=== PATIENT | male | born 1945 | race Caucasian/White ===

== ENCOUNTER → 2020-05-20 | Outpatient (CLI) | payer MEDICARE ==
[2020-05-21 00:51] LABS: Calcium 9.3 mg/dL (8.7-10.3)
[2020-05-21 01:04] LABS: T4, Free (Free Thyroxine) 0.9 ng/dL (0.80-1.80)
== END | disposition home or self-care (01) ==
LOC: LABWHC1 09:55
PROVIDERS: ATTEND Psychiatry & Neurology Neurology
DX: M54.2 Cervicalgia (principal); R51 Headache; R25.1 Tremor, unspecified
CPT/HCPCS: 36415; 82310; 82390; 82607; 84439; 84443; 84630

== ENCOUNTER → 2020-05-23 | Outpatient (CLI) | payer MEDICARE ==
--- NOTE | 2020-05-23 15:54 | MR ---
EXAMINATION TYPE: MR brain wo/w con DATE OF EXAM: 05/23/2020 COMPARISON: None HISTORY: Tremor right hand TECHNIQUE: Multiplanar, multisequence images of the brain and brainstem is performed without and with IV contras t, utilizing 10 mL intravenous Gadavist . FINDINGS: Diffusion weighted images demonstrate no evidence of a recent infarct or other diffusion ab normality. There is no extra-axial fluid. Scattered hyperintensities on inversion recovery T2-weigh nettie sequences are present, approximately 3-5 lesions, largest in the right frontal lobe measures 8 mm . The ventricular system and cisternal spaces are normal in size and appearance. The brain volume is age appropriate, there is cortical atrophy. Midline structures demonstrate normal morphology. The craniocervical junction appears within normal limits. Post contrast images demonstrate no abnormal enhancement. The dural venous sinuses appear pa tent. The visualized sinuses are clear and the globes are intact. IMPRESSION: Nonspecific white matter demyelination may be related to chronic small vessel ischemia, h ypertension, migraine headaches, age related atrophy
== END | disposition home or self-care (01) ==
LOC: RADMRIMAIN 12:01
PROVIDERS: ATTEND Family Medicine
DX: G37.9 Demyelinating disease of central nervous system, unspecified (principal)
CPT/HCPCS: 70553; A9585

== ENCOUNTER 2020-11-30 11:30 | Inpatient (IN) | payer MEDICARE ==
[2020-11-30 12:55] LABS: Basophils # (A) 0.1 k/uL (0-0.2); Basophils % (A) 0 %; Eosinophils # (A) 0.2 k/uL (0-0.7); Eosinophils % (A) 1 %; HCT 48.2 % (39.0-53.0); HGB 16.7 gm/dL (13.0-17.5); Lymphocytes # (A) 1.3 k/uL (1.0-4.8); Lymphocytes % (A) 11 %; MCH 32.4 pg (25.0-35.0); MCHC 34.5 g/dL (31.0-37.0); MCV 93.9 fL (80.0-100.0); Mean Platelet Volume 8.1; Monocytes # (A) 0.7 k/uL (0-1.0); Monocytes % (A) 6 %; Neutrophils # (A) 9.6 k/uL (1.3-7.7); Neutrophils % (A) 81 %; Platelet Count 145 k/uL (150-450); RBC 5.14 m/uL (4.30-5.90); RDW 12.5 % (11.5-15.5); WBC 11.8 k/uL (3.8-10.6)
[2020-11-30 13:05] LABS: ALT 30 U/L (4-49); AST 31 U/L (17-59); African American GFR (CKD) >90 (>60 ml/min/1.73 sqM); Albumin 3.6 g/dL (3.5-5.0); Alkaline Phosphatase 62 U/L (38-126); Anion Gap 9 mmol/L; Blood Urea Nitrogen 23 mg/dL (9-20); Calcium 8.8 mg/dL (8.4-10.2); Carbon Dioxide 24 mmol/L (22-30); Chloride 103 mmol/L (98-107); Glucose 101 mg/dL (74-99); Lipase 95 U/L (23-300); Non-African American GFR(CKD) 84 (>60 ml/min/1.73 sqM); Potassium 3.8 mmol/L (3.5-5.1); Sodium 136 mmol/L (137-145); Total Bilirubin 1.5 mg/dL (0.2-1.3); Total Protein 6.6 g/dL (6.3-8.2)
[2020-11-30 13:19] LABS: Partial Thromboplastin Time 23.7 sec (22.0-30.0); Prothrombin Time 10.4 sec (9.0-12.0)
[2020-11-30 13:40] LABS: Appearance,Urine Clear (Clear); Bilirubin,Urine 1+ (Negative); Blood,Urine Negative (Negative); Color,Urine Yellow; Glucose,Urine (UA) Negative (Negative); Hyaline Casts,Urine 7 /lpf (0-2); Ketones,Urine 2+ (Negative); Leukocyte Esterase,Urine Negative (Negative); Mucus,Urine Moderate /hpf; Nitrite,Urine Negative (Negative); PH, Urine 5.5 (5.0-8.0); Protein,Urine 1+ (Negative); RBC,Urine 1 /hpf (0-5); Specific Gravity,Urine 1.038 (1.001-1.035); Squamous Epithelial Cell,Urine 1 /hpf (0-4); WBC,Urine 2 /hpf (0-5)
--- NOTE | 2020-11-30 13:48 | CT ---
EXAMINATION TYPE: CT abdomen pelvis w con DATE OF EXAM: 11/30/2020 COMPARISON: NONE HISTORY: 75-year-old male abdominal and LLQ pain TECHNIQUE: Contiguous axial scanning of the abdomen and pelvis following administration of 100 ml Iso brigido 300 IV contrast. Delayed images through the kidneys and coronal/sagittal reconstructions perform ed. CT DLP: 1830.9 mGycm Automated exposure control for dose reduction was used. FINDINGS: Heart normal size without pericardial effusion. Three-vessel coronary artery calcifications are prese nt. Some strandy areas of atelectasis in the lower lungs. No pleural effusion. Tiny hiatal hernia. Liver mildly enlarged at 18.8 cm. There is a tiny 7 mm hypodensity within segment IVb of the left tim er lobe too small for accurate CT characterization, likely tiny cysts. No biliary ductal dilatation. Portal venous system is patent. Nonvisualization of the gallbladder. Adrenal glands, kidneys, spleen, and pancreas appear within normal limits. No mesenteric or retroperitoneal lymphadenopathy. Normal appendix. Descending and sigmoid colonic diverticulosis. There is moderate inflammation noted within the left lower quadrant and upper pelvis. The greatest degree of inflammation is near the leve l of the mid sigmoid colon. There is a 2.8 cm fluid locule containing some air on the anterior margin of the mid sigmoid colon abutting an inflamed and thickened loop of small bowel. The bladder wall is also thickened with perivesicular fat stranding. No free air. Prostate gland measures 4.7 cm wide. Scattered pelvic phleboliths. No abnormal fluid collection other waterman seen in the pelvis and no pelvic lymphadenopathy. Bones: Mild degenerative change of the hips. Facet arthropathy mid to lower lumbar spine. DISH within the lower thoracic spine. IMPRESSION: 1. MODERATE INFLAMMATION IN THE LEFT LOWER QUADRANT AND UPPER PELVIS. THIS MAY RELATE TO ACUTE MID SI GMOID DIVERTICULITIS. A 2.8 CM FLUID LOCULE CONTAINING SOME AIR, POSSIBLE SMALL CONTAINED LEAK, IS LO CATED ALONG THE ANTERIOR MARGIN OF THE MID SIGMOID COLON AND ABUTS AN INFLAMED AND THICKENED LOOP OF SMALL BOWEL. MODERATE TO SEVERE REGIONAL ENTERITIS IS THE ALTERNATIVE CONSIDERATION. FOLLOW-UP CT REC OMMENDED IF THE PATIENT DOES NOT RESPOND TO CONSERVATIVE MANAGEMENT. 2. WALL THICKENING AND SURROUNDING FAT STRANDING OF THE BLADDER DOME, LIKELY REACTIVE INFLAMMATION. C ORRELATE TO EXCLUDE CYSTITIS.
[2020-11-30] MEDS ORDERED: cefTRIAXone IN SWFI 1,000 MG/10 ML SYRINGE IVP STA (14:11)
[2020-11-30] MEDS ORDERED: metroNIDAZOLE-NS PMX 500 MG in SALINE 1 100ML.BAG IVPB STA (14:11)
--- NOTE | 2020-11-30 14:26 | ED ---
General Adult HPI - General Chief complaint: Abdominal Pain Stated complaint: abd pain Time Seen by Provider: 11/30/20 12:05 Source: patient Mode of arrival: ambulatory Limitations: no limitations - History of Present Illness Initial comments: Patient is a 75-year-old previously healthy male who presents emergency room with reported abdominal pain. Patient reports that he began having diffuse abdominal pain on with some diarrhea. Pain then began to localize down to the left lower quadrant. No history of similar in the past. Does report to a fever at home. Denies taking any medications for fever or symptom control. He denies melenic stools or hematochezia. No changes in his urination to include dysuria, hematuria or diplopia voiding. No back or flank pain. Patient did follow up in Dr. Case office. Dr. Hutton was concerned for diverticulitis and therefore sent the patient to the ER for CT. Overlying the left lower quadrant the patient does have an area of abrasion. Patient is unsure how he obtained this. Eyes any drainage from the site. No surrounding cellulitis. No other alleviating, Perceptin or modifying factors - Related Data Home Medications Medication Instructions Recorded Confirmed 5-Hydroxytryptophan (5-Htp) [5-Htp 100 mg PO HS 11/30/20 11/30/20 Cr] Aspirin 162 mg PO DAILY 11/30/20 11/30/20 Atorvastatin Calcium [Lipitor] 80 mg PO HS 11/30/20 11/30/20 Cholecalciferol (Vitamin D3) 125 mcg PO DAILY 11/30/20 11/30/20 [Vitamin D3 (5000 Iu)] Cinnamon Bark [Cinnamon] 500 mg PO W/LUNCH 11/30/20 11/30/20 Clotrimazole Cream [Lotrimin Cream] 1 applic TOPICAL BID 11/30/20 11/30/20 Donepezil [Aricept] 10 mg PO DAILY 11/30/20 11/30/20 Finasteride [Proscar] 5 mg PO HS 11/30/20 11/30/20 L.acidoph,Paracasei, B.lactis 1 cap PO W/LUNCH 11/30/20 11/30/20 [Probiotic] Montelukast [Singulair] 10 mg PO DAILY 11/30/20 11/30/20 Multivitamins, Thera [Multivitamin 1 tab PO AC-SUPPER 11/30/20 11/30/20 (formulary)] Propranolol [Inderal] 40 mg PO AC-BID 11/30/20 11/30/20 Super B-Complex 1 tab PO DAILY 11/30/20 11/30/20 Terazosin [Hytrin] 5 mg PO BID 11/30/20 11/30/20 Zinc Gluconate [Zinc] 50 mg PO DAILY 11/30/20 11/30/20 Previous Rx's Medication Instructions Recorded Acetaminophen Tab [Tylenol] 650 mg PO Q6HR PRN tab 12/08/20 Piperacillin-Tazobactam [Zosyn] 4.5 gm IVPB Q8HR #42 bag 12/08/20 Allergies Allergy/AdvReac Type Severity Reaction Status Date / Time No Known Allergies Allergy Verified 11/30/20 13:06 Review of Systems ROS Statement: Those systems with pertinent positive or pertinent negative responses have been documented in the HPI. ROS Other: All systems not noted in ROS Statement are negative. Past Medical History Past Medical History: No Reported History History of Any Multi-Drug Resistant Organisms: None Reported Past Surgical History: Hernia Repair Past Psychological History: No Psychological Hx Reported Smoking Status: Former smoker Past Alcohol Use History: Rare Past Drug Use History: None Reported - Past Family History Father Family Medical History: Unable to Obtain Mother Family Medical History: Cancer Additional Family Medical History / Comment(s): Emphysema General Exam Limitations: no limitations General appearance: alert, in no apparent distress Head exam: Present: atraumatic, normocephalic, normal inspection Eye exam: Present: normal appearance, PERRL, EOMI. Absent: scleral icterus, conjunctival injection, periorbital swelling ENT exam: Present: normal exam, mucous membranes moist Neck exam: Present: normal inspection. Absent: tenderness, meningismus, lymphadenopathy Respiratory exam: Present: normal lung sounds bilaterally. Absent: respiratory distress, wheezes, rales, rhonchi, stridor Cardiovascular Exam: Present: regular rate, normal rhythm, normal heart sounds. Absent: systolic murmur, diastolic murmur, rubs, gallop, clicks GI/Abdominal exam: Present: soft, tenderness (llq. overlying 3 x2 cm partially healed abrasion), normal bowel sounds. Absent: distended, guarding, rebound, rigid Extremities exam: Present: normal inspection, full ROM, normal capillary refill. Absent: tenderness, pedal edema, joint swelling, calf tenderness Back exam: Present: normal inspection Neurological exam: Present: alert, oriented X3, CN II-XII intact Psychiatric exam: Present: normal affect, normal mood Skin exam: Present: warm, dry, intact, normal color. Absent: rash Course Vital Signs 11/30/20 11/30/20 11/30/20 12:02 12:37 15:06 Temperature 98.5 F Pulse Rate 87 83 72 Respiratory 18 18 16 Rate Blood Pressure 133/80 161/100 159/87 O2 Sat by Pulse 96 95 98 Oximetry 11/30/20 17:13 Temperature 98.6 F Pulse Rate 77 Respiratory 16 Rate Blood Pressure 159/76 O2 Sat by Pulse 98 Oximetry Medical Decision Making - Medical Decision Making The patient is placed into room 23. There are history and physical exam was performed. IV is established. Did offer pain medication with the patient refused. Tracings were conducted and the patient went for CT of his abdomen and pelvis. Urinalysis demonstrates 2+ ketones. CT does demonstrate acute diverticulitis of the mid sigmoid colon with 2.8 fluid locule containing some air, possible small contained leak. These results are discussed with the patient. He is covered with Zosyn after blood cultures are performed. I did speak with Dr. shaw who agree to admit the patient. I will place GI and surgery on consult. Patient agreed to this plan and was awaiting a bed on the floor - Lab Data Result diagrams: 12/07/20 06:11 12/01/20 06:11 Lab Results 11/30/20 11/30/20 11/30/20 Range/Units 12:37 12:37 12:37 WBC 11.8 H (3.8-10.6) k/uL RBC 5.14 (4.30-5.90) m/uL Hgb 16.7 (13.0-17.5) gm/dL Hct 48.2 (39.0-53.0) % MCV 93.9 (80.0-100.0) fL MCH 32.4 (25.0-35.0) pg MCHC 34.5 (31.0-37.0) g/dL RDW 12.5 (11.5-15.5) % Plt Count 145 L (150-450) k/uL MPV 8.1 Neutrophils % 81 % Lymphocytes % 11 % Monocytes % 6 % Eosinophils % 1 % Basophils % 0 % Neutrophils # 9.6 H (1.3-7.7) k/uL Lymphocytes # 1.3 (1.0-4.8) k/uL Monocytes # 0.7 (0-1.0) k/uL Eosinophils # 0.2 (0-0.7) k/uL Basophils # 0.1 (0-0.2) k/uL PT 10.4 (9.0-12.0) sec INR 1.0 (<1.2) APTT 23.7 (22.0-30.0) sec Sodium 136 L (137-145) mmol/L Potassium 3.8 (3.5-5.1) mmol/L Chloride 103 (98-107) mmol/L Carbon Dioxide 24 (22-30) mmol/L Anion Gap 9 mmol/L BUN 23 H (9-20) mg/dL Creatinine 0.89 (0.66-1.25) mg/dL Est GFR (CKD-EPI)AfAm >90 (>60 ml/min/1.73 sqM) Est GFR (CKD-EPI)NonAf 84 (>60 ml/min/1.73 sqM) Glucose 101 H (74-99) mg/dL Plasma Lactic Acid Teddy (0.7-2.0) mmol/L Calcium 8.8 (8.4-10.2) mg/dL Total Bilirubin 1.5 H (0.2-1.3) mg/dL AST 31 (17-59) U/L ALT 30 (4-49) U/L Alkaline Phosphatase 62 (38-126) U/L Total Protein 6.6 (6.3-8.2) g/dL Albumin 3.6 (3.5-5.0) g/dL Lipase 95 (23-300) U/L Urine Color Urine Appearance (Clear) Urine pH (5.0-8.0) Ur Specific [place] (1.001-1.035) Urine Protein (Negative) Urine Glucose (UA) (Negative) Urine Ketones (Negative) Urine Blood (Negative) Urine Nitrite (Negative) Urine Bilirubin (Negative) Urine Urobilinogen (<2.0) mg/dL Ur Leukocyte Esterase (Negative) Urine RBC (0-5) /hpf Urine WBC (0-5) /hpf Ur Squamous Epith Cells (0-4) /hpf Hyaline Casts (0-2) /lpf Urine Mucus (None) /hpf 11/30/20 11/30/20 Range/Units 12:37 12:44 WBC (3.8-10.6) k/uL RBC (4.30-5.90) m/uL Hgb (13.0-17.5) gm/dL Hct (39.0-53.0) % MCV (80.0-100.0) fL MCH (25.0-35.0) pg MCHC (31.0-37.0) g/dL RDW (11.5-15.5) % Plt Count (150-450) k/uL MPV Neutrophils % % Lymphocytes % % Monocytes % % Eosinophils % % Basophils % % Neutrophils # (1.3-7.7) k/uL Lymphocytes # (1.0-4.8) k/uL Monocytes # (0-1.0) k/uL Eosinophils # (0-0.7) k/uL Basophils # (0-0.2) k/uL PT (9.0-12.0) sec INR (<1.2) APTT (22.0-30.0) sec Sodium (137-145) mmol/L Potassium (3.5-5.1) mmol/L Chloride (98-107) mmol/L Carbon Dioxide (22-30) mmol/L Anion Gap mmol/L BUN (9-20) mg/dL Creatinine (0.66-1.25) mg/dL Est GFR (CKD-EPI)AfAm (>60 ml/min/1.73 sqM) Est GFR (CKD-EPI)NonAf (>60 ml/min/1.73 sqM) Glucose (74-99) mg/dL Plasma Lactic Acid Teddy 0.9 (0.7-2.0) mmol/L Calcium (8.4-10.2) mg/dL Total Bilirubin (0.2-1.3) mg/dL AST (17-59) U/L ALT (4-49) U/L Alkaline Phosphatase (38-126) U/L Total Protein (6.3-8.2) g/dL Albumin (3.5-5.0) g/dL Lipase (23-300) U/L Urine Color Yellow Urine Appearance Clear (Clear) Urine pH 5.5 (5.0-8.0) Ur Specific Esmond 1.038 H (1.001-1.035) Urine Protein 1+ H (Negative) Urine Glucose (UA) Negative (Negative) Urine Ketones 2+ H (Negative) Urine Blood Negative (Negative) Urine Nitrite Negative (Negative) Urine Bilirubin 1+ H (Negative) Urine Urobilinogen 3.0 (<2.0) mg/dL Ur Leukocyte Esterase Negative (Negative) Urine RBC 1 (0-5) /hpf Urine WBC 2 (0-5) /hpf Ur Squamous Epith Cells 1 (0-4) /hpf Hyaline Casts 7 H (0-2) /lpf Urine Mucus Moderate H (None) /hpf Disposition Clinical Impression: Abdominal pain, Diverticulitis of colon with perforation Disposition: ADMITTED IP TO THIS [facility] Condition: Stable Is patient prescribed a controlled substance at d/c from ED?: No Decision to Admit Reason: Admit from EC Decision Date: 11/30/20 Decision Time: 14:25
[2020-11-30] MEDS ORDERED: NALOXONE 0.4 MG/ML 1 ML VIAL IV PRN (14:27)
[2020-11-30] MEDS ORDERED: SODIUM CHLORIDE 0.9% 1,000 ML IV SCH (14:30)
[2020-11-30] MEDS ORDERED: PIPERACILLIN-TAZOBACTAM 3.375 GM in SODIUM CHLORIDE 0.9% 100 ML IVPB STA (14:33)
--- NOTE | 2020-11-30 16:17 | P.GSCN ---
History of Present Illness Consult date: 11/30/20 History of present illness: CHIEF COMPLAINT: Abdominal pain HISTORY OF PRESENT ILLNESS: This is a 75-year-old male with a known past medical history hyperlipidemia, hypertension, dementia and BPH. He's had prior surgical history of a hernia repair. Patient came into the emergency room with complaints of left lower quadrant abdominal pain 4 days. Patient had been having nausea and fevers at home. On pain did continue to worsen in the left lower quadrant. He did have some diarrhea. He came into the ER for further evaluation. He had a computed tomography scan of the abdomen and pelvis that showed moderate inflammation in the left lower quadrant and upper pelvis. This may relate to acute mid sigmoid diverticulitis. A 2.8 cm fluid locule containing some air, possible small contained leak. It is located along the anterior margin of the mid sigmoid col on and abuts and inflamed and thickened loop of small bowel. Patient admitted to the hospital for an acute diverticulitis with perforation. Surgical service was placed on consult. Patient does report that his pain is tolerable at this time. He's been started on IV antibiotics. His white count was elevated on admission. Patient seen and examined with Dr. Guardado PAST MEDICAL HISTORY: See list. PAST SURGICAL HISTORY: See list. MEDICATIONS: See list. ALLERGIES: See list. SOCIAL HISTORY: No illicit drug use. REVIEW OF SYSTEMS: CONSTITUTIONAL: Denies fever or chills. HEENT: Denies blurred vision, vision changes, or eye pain. Denies hemoptysis CARDIOVASCULAR: Denies chest pain or pressure. RESPIRATORY: No shortness of breath. GASTROINTESTINAL: See HPI for pertinent findings HEMATOLOGIC: Denies bleeding disorders. GENITOURINARY: Denies any blood in urine or increased urinary frequency. SKIN: Denies pruitis. Denies rash. PHYSICAL EXAM: VITAL SIGNS: Reviewed GENERAL: Well-developed in no acute distress. HEENT: No sclera icterus. Extraocular movements grossly intact. Moist buccal mucosa. Head is atraumatic, normocephalic. No nasal drainage. ABDOMEN: Soft. Nondistended. Left lower quadrant tenderness NEUROLOGIC: Alert and oriented. Cranial nerves II through XII grossly intact. LABORATORY DATA: WBC 11.8 Hgb 16.7 platelets 145 INR 1.0 sodium 136 BUN 23 creatinine 0.89 lactic 0.9 total bili 1.5 LFTs normal Lipase normal IMAGING: computed tomography scan of the abdomen and pelvis that showed moderate inflammation in the left lower quadrant and upper pelvis. This may relate to acute mid sigmoid diverticulitis. A 2.8 cm fluid locule containing some air, possible small contained leak. It is located along the anterior margin of the mid sigmoid colon and abuts and inflamed and thickened loop of small bowel. ASSESSMENT: 1. Acute mid sigmoid diverticulitis with perforation and contained leak measuring 2.8 cm 2. Abdominal pain PLAN: -Continue antibiotics -Keep patient nothing by mouth -Continue IV fluids -Continue to monitor patient closely -If patient's symptoms worsen will repeat computed tomography scan of the abdomen and pelvis -Follow up with labs in a.m. Thank you for this consultation Physician [employer]ar[employer] Supervisor [employer] note has been reviewed by physician. Signing provider agrees with the documented findings, assessment, and plan of care. Past Medical History Past Medical History: No Reported History History of Any Multi-Drug Resistant Organisms: None Reported Past Surgical History: Hernia Repair Past Psychological History: No Psychological Hx Reported Smoking Status: Former smoker Past Alcohol Use History: Rare Past Drug Use History: None Reported Medications and Allergies Home Medications Medication Instructions Recorded Confirmed Type 5-Hydroxytryptophan (5-Htp) [5-Htp 100 mg PO HS 11/30/20 11/30/20 History Cr] Aspirin 162 mg PO DAILY 11/30/20 11/30/20 History Atorvastatin Calcium [Lipitor] 80 mg PO HS 11/30/20 11/30/20 History Cholecalciferol (Vitamin D3) 125 mcg PO DAILY 11/30/20 11/30/20 History [Vitamin D3 (5000 Iu)] Cinnamon Bark [Cinnamon] 500 mg PO W/LUNCH 11/30/20 11/30/20 History Clotrimazole Cream [Lotrimin Cream] 1 applic TOPICAL BID 11/30/20 11/30/20 History Donepezil [Aricept] 10 mg PO DAILY 11/30/20 11/30/20 History Finasteride [Proscar] 5 mg PO HS 11/30/20 11/30/20 History L.acidoph,Paracasei, B.lactis 1 cap PO W/LUNCH 11/30/20 11/30/20 History [Probiotic] Montelukast [Singulair] 10 mg PO DAILY 11/30/20 11/30/20 History Multivitamins, Thera [Multivitamin 1 tab PO AC-SUPPER 11/30/20 11/30/20 History (formulary)] Propranolol [Inderal] 40 mg PO AC-BID 11/30/20 11/30/20 History Super B-Complex 1 tab PO DAILY 11/30/20 11/30/20 History Terazosin [Hytrin] 5 mg PO BID 11/30/20 11/30/20 History Zinc Gluconate [Zinc] 50 mg PO DAILY 11/30/20 11/30/20 History Allergies Allergy/AdvReac Type Severity Reaction Status Date / Time No Known Allergies Allergy Verified 11/30/20 13:06 Surgical - Exam Vital Signs Temp Pulse Resp BP Pulse Ox 98.5 F 87 18 133/80 96 11/30/20 12:02 11/30/20 12:02 11/30/20 12:02 11/30/20 12:02 11/30/20 12:02 Results - Labs 11/30/20 12:37 11/30/20 12:37 Abnormal Lab Results - Last 24 Hours (Table) 11/30/20 11/30/20 11/30/20 Range/Units 12:37 12:37 12:44 WBC 11.8 H (3.8-10.6) k/uL Plt Count 145 L (150-450) k/uL Neutrophils # 9.6 H (1.3-7.7) k/uL Sodium 136 L (137-145) mmol/L BUN 23 H (9-20) mg/dL Glucose 101 H (74-99) mg/dL Total Bilirubin 1.5 H (0.2-1.3) mg/dL Ur Specific [place] 1.038 H (1.001-1.035) Urine Protein 1+ H (Negative) Urine Ketones 2+ H (Negative) Urine Bilirubin 1+ H (Negative) Hyaline Casts 7 H (0-2) /lpf Urine Mucus Moderate H (None) /hpf Diabetes panel 11/30/20 Range/Units 12:37 Sodium 136 L (137-145) mmol/L Potassium 3.8 (3.5-5.1) mmol/L Chloride 103 (98-107) mmol/L Carbon Dioxide 24 (22-30) mmol/L BUN 23 H (9-20) mg/dL Creatinine 0.89 (0.66-1.25) mg/dL Glucose 101 H (74-99) mg/dL Calcium 8.8 (8.4-10.2) mg/dL AST 31 (17-59) U/L ALT 30 (4-49) U/L Alkaline Phosphatase 62 (38-126) U/L Total Protein 6.6 (6.3-8.2) g/dL Albumin 3.6 (3.5-5.0) g/dL Calcium panel 11/30/20 Range/Units 12:37 Calcium 8.8 (8.4-10.2) mg/dL Albumin 3.6 (3.5-5.0) g/dL Pituitary panel 11/30/20 Range/Units 12:37 Sodium 136 L (137-145) mmol/L Potassium 3.8 (3.5-5.1) mmol/L Chloride 103 (98-107) mmol/L Carbon Dioxide 24 (22-30) mmol/L BUN 23 H (9-20) mg/dL Creatinine 0.89 (0.66-1.25) mg/dL Glucose 101 H (74-99) mg/dL Calcium 8.8 (8.4-10.2) mg/dL Adrenal panel 11/30/20 Range/Units 12:37 Sodium 136 L (137-145) mmol/L Potassium 3.8 (3.5-5.1) mmol/L Chloride 103 (98-107) mmol/L Carbon Dioxide 24 (22-30) mmol/L BUN 23 H (9-20) mg/dL Creatinine 0.89 (0.66-1.25) mg/dL Glucose 101 H (74-99) mg/dL Calcium 8.8 (8.4-10.2) mg/dL Total Bilirubin 1.5 H (0.2-1.3) mg/dL AST 31 (17-59) U/L ALT 30 (4-49) U/L Alkaline Phosphatase 62 (38-126) U/L Total Protein 6.6 (6.3-8.2) g/dL Albumin 3.6 (3.5-5.0) g/dL
[2020-11-30] MEDS: ENOXAPARIN 40 MG/0.4 ML SYRINGE SQ SCH (18:02)
[2020-11-30] MEDS: MULTIVITAMINS, THERA 1 EACH TAB PO SCH (18:02)
[2020-11-30] MEDS: PROPRANOLOL 40 MG TAB PO SCH (18:18)
--- NOTE | 2020-11-30 20:08 | P.HPIM ---
History of Present Illness H&P Date: 11/30/20 Chief Complaint: Abdominal pain History of presenting complaint: This is a very pleasant 75-year-old patient Dr. Hutton. Chronic stable medical conditions include BPH, hyperlipidemia, benign forgetfulness of them daily. Patient rather active. 4 days ago he finished the morning meeting is started noticing some abdominal discomfort. By late in the day he was not feeling well. Had a fever up to 103. Chills. Not feeling well. Fever broke the following day. He did decrease appetite. Abdominal symptoms progress. Continue to feel worse. Patient had no urinary symptoms. He did follow with Dr. Hutton's office will send him down for a computed tomography scan. Patient also had some loose stools. 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 Ex-smoker. Alcohol rarely. Family history: Reviewed, noncontributory to presentation Physical examination: VITAL SIGNS: 98.5, 87, 18, 133 per 80, 96% room air GENERAL: BMI 30.3, sitting on bed, a bit uncomfortable. EYES: Pupils equal. Conjunctiva normal. HEENT: External appearance of nose and ears normal, oral cavity grossly normal. NECK: JVD not raised; masses not palpable. HEART: First and second heart sounds are normal; no edema. LUNGS: Respiratory rate normal; clear to auscultation. ABDOMEN: Soft, tenderness, no guarding rigidity, liver spleen not palpable, no masses palpable. PSYCH: Alert and oriented x3; mood and affect normal. NEUROLOGICAL: Cranial nerves grossly intact; no facial asymmetry, power and sensation grossly intact. LYMPHATICS: No lymph nodes palpable in the axilla and neck INVESTIGATIONS, reviewed in the clinical context: WBC 11.8 hemoglobin 16.7 platelets 145 neutrophils 9.6 potassium 3.8 creatinine 0.89 Coronavirus [PCR]-not detected Computed tomography scan abdomen and pelvis with contrast: Descending and sigmoid colonic diverticulosis. Moderate inflammation noted within the left lower quadrant and upper pelvis. Crit is decreased inflammation noted on the mid sigmoid colon. 2.8 cm fluid no acute contains some air on that date her margin of the mid sigmoid colon sitting or inflamed and thickened loop of small bowel. Prostate again enlarged. Assessment and plan: -Acute sigmoid diverticulitis with localized perforation 2.8 cm. Patient is being made nothing by mouth. General surgery was consulted. Started IV Zosyn and IV fluids. 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 Questions answered. General surgery was consulted. Nothing by mouth Given the complexity and severity of patient's condition expect the patient to be in the hospital at least for 2 overnights Past Medical History Past Medical History: No Reported History History of Any Multi-Drug Resistant Organisms: None Reported Past Surgical History: Hernia Repair Past Anesthesia/Blood Transfusion Reactions: No Reported Reaction Past Psychological History: No Psychological Hx Reported Smoking Status: Former smoker Past Alcohol Use History: Rare Past Drug Use History: None Reported - Past Family History Father Family Medical History: Unable to Obtain Mother Family Medical History: Cancer Additional Family Medical History / Comment(s): Emphysema Medications and Allergies Home Medications Medication Instructions Recorded Confirmed Type 5-Hydroxytryptophan (5-Htp) [5-Htp 100 mg PO HS 11/30/20 11/30/20 History Cr] Aspirin 162 mg PO DAILY 11/30/20 11/30/20 History Atorvastatin Calcium [Lipitor] 80 mg PO HS 11/30/20 11/30/20 History Cholecalciferol (Vitamin D3) 125 mcg PO DAILY 11/30/20 11/30/20 History [Vitamin D3 (5000 Iu)] Cinnamon Bark [Cinnamon] 500 mg PO W/LUNCH 11/30/20 11/30/20 History Clotrimazole Cream [Lotrimin Cream] 1 applic TOPICAL BID 11/30/20 11/30/20 History Donepezil [Aricept] 10 mg PO DAILY 11/30/20 11/30/20 History Finasteride [Proscar] 5 mg PO HS 11/30/20 11/30/20 History L.acidoph,Paracasei, B.lactis 1 cap PO W/LUNCH 11/30/20 11/30/20 History [Probiotic] Montelukast [Singulair] 10 mg PO DAILY 11/30/20 11/30/20 History Multivitamins, Thera [Multivitamin 1 tab PO AC-SUPPER 11/30/20 11/30/20 History (formulary)] Propranolol [Inderal] 40 mg PO AC-BID 11/30/20 11/30/20 History Super B-Complex 1 tab PO DAILY 11/30/20 11/30/20 History Terazosin [Hytrin] 5 mg PO BID 11/30/20 11/30/20 History Zinc Gluconate [Zinc] 50 mg PO DAILY 11/30/20 11/30/20 History Allergies Allergy/AdvReac Type Severity Reaction Status Date / Time No Known Allergies Allergy Verified 11/30/20 13:06 Physical Exam Vitals: Vital Signs Temp Pulse Resp BP Pulse Ox 11/30/20 17:13 98.6 F 77 16 159/76 98 11/30/20 15:06 72 16 159/87 98 11/30/20 12:37 83 18 161/100 95 11/30/20 12:02 98.5 F 87 18 133/80 96 Intake and Output 11/30/20 11/30/20 11/30/20 06:59 14:59 22:59 Other: Weight 107.048 kg 107.048 kg Results CBC & Chem 7: 11/30/20 12:37 11/30/20 12:37 Labs: Abnormal Lab Results - Last 24 Hours (Table) 11/30/20 11/30/20 11/30/20 Range/Units 12:37 12:37 12:44 WBC 11.8 H (3.8-10.6) k/uL Plt Count 145 L (150-450) k/uL Neutrophils # 9.6 H (1.3-7.7) k/uL Sodium 136 L (137-145) mmol/L BUN 23 H (9-20) mg/dL Glucose 101 H (74-99) mg/dL Total Bilirubin 1.5 H (0.2-1.3) mg/dL Ur Specific [place] 1.038 H (1.001-1.035) Urine Protein 1+ H (Negative) Urine Ketones 2+ H (Negative) Urine Bilirubin 1+ H (Negative) Hyaline Casts 7 H (0-2) /lpf Urine Mucus Moderate H (None) /hpf Thrombosis Risk Factor Assmnt - Choose All That Apply Each Factor Represents 1 point: Minor surgery planned Each Risk Factor Represents 3 Points: Age 75 years or older Thrombosis Risk Factor Assessment Total Risk Factor Score: 4 Thrombosis Risk Factor Assessment Level: Moderate Risk
[2020-11-30] MEDS ORDERED: HYDROXYTRYPTOPHAN 100 MG PO SCH (21:00)
[2020-11-30] MEDS: ATORVASTATIN 80 MG TAB PO SCH (21:03)
[2020-11-30] MEDS: DOXAZOSIN 4 MG TAB PO SCH (21:04)
[2020-11-30] MEDS: CLOTRIMAZOLE 1% CREAM 30 GM TUBE TOPICAL SCH (21:04)
[2020-11-30] MEDS: FINASTERIDE 5 MG TAB PO SCH (21:04)
[2020-11-30] MEDS: LACTATED RINGERS 1,000 ML IV SCH (21:05)
[2020-12-01] MEDS: LACTATED RINGERS 1,000 ML IV SCH ×2 (04:41→12:26)
[2020-12-01 06:54] LABS: Basophils % (A) 0 %; Eosinophils # (A) 0.1 k/uL (0-0.7); Eosinophils % (A) 1 %; Lymphocytes # (A) 1.3 k/uL (1.0-4.8); Lymphocytes % (A) 11 %; MCH 32.8 pg (25.0-35.0); MCHC 34.7 g/dL (31.0-37.0); MCV 94.5 fL (80.0-100.0); Mean Platelet Volume 7.6; Monocytes # (A) 0.7 k/uL (0-1.0); Monocytes % (A) 6 %; Neutrophils # (A) 9.8 k/uL (1.3-7.7); Neutrophils % (A) 81 %; Platelet Count 155 k/uL (150-450); RBC 4.87 m/uL (4.30-5.90); RDW 12.5 % (11.5-15.5)
[2020-12-01] MEDS: CHOLECALCIFEROL 25 MCG (1000 IU) TABLET PO SCH ×2 (09:22→09:32)
[2020-12-01] MEDS: CLOTRIMAZOLE 1% CREAM 30 GM TUBE TOPICAL SCH ×2 (09:22→21:29)
[2020-12-01] MEDS: ENOXAPARIN 40 MG/0.4 ML SYRINGE SQ SCH (09:22)
[2020-12-01] MEDS: MONTELUKAST 10 MG TAB PO SCH ×2 (09:22→09:32)
[2020-12-01] MEDS: DONEPEZIL 10 MG TAB PO SCH ×2 (09:22→09:32)
[2020-12-01] MEDS: PROPRANOLOL 40 MG TAB PO SCH ×2 (09:22→18:18)
[2020-12-01] MEDS: ASPIRIN 81 MG PO SCH ×2 (09:22→09:32)
[2020-12-01] MEDS: ZINC SULFATE 220 MG CAP PO SCH ×2 (09:22→09:32)
[2020-12-01] MEDS: PIPERACILLIN-TAZOBACTAM 3.375 GM in SODIUM CHLORIDE 0.9% 100 ML IVPB SCH ×2 (10:44→18:20)
[2020-12-01] MEDS: LACTOBACILLUS ACIDOPH & BULGAR 1 EACH PACKET PO SCH (11:28)
[2020-12-01] MEDS ORDERED: NON FORMULARY DRUG (Cinnamon Bark [Cinnamon] 500 MG Capsule) PO SCH (12:30)
[2020-12-01 13:15] LABS: African American GFR (CKD) 101.3 (60.0-200.0); Anion Gap 7.8 mmol/L (4.00-12.00); BUN/Creat Ratio 22.5 Ratio (12.00-20.00); Calcium 9.1 mg/dL (8.7-10.3); Carbon Dioxide 26.2 mmol/L (21.6-31.8); Non-African American GFR(CKD) 87.4 (60.0-200.0); Potassium 4.4 mmol/L (3.5-5.5)
--- NOTE | 2020-12-01 14:10 | P.PN ---
Subjective Progress Note Date: 12/01/20 CHIEF COMPLAINT: Abdominal pain HISTORY OF PRESENT ILLNESS: Surgical service is following in regards to acute diverticulitis with perforation and contained leak. Patient reports that his abdominal pain is better than yesterday. But is still present. He denies any nausea or vomiting. He is having bowel movements. No blood in the stools. White count is up at 12. He is currently nothing by mouth except for ice chips. PHYSICAL EXAM: VITAL SIGNS: Reviewed. GENERAL: Well-developed in no acute distress. HEENT: No sclera icterus. Extraocular movements grossly intact. Moist buccal mucosa. Head is atraumatic, normocephalic. ABDOMEN: Soft. Nondistended. Left lower quadrant tenderness NEUROLOGIC: Alert and oriented. Cranial nerves II through XII grossly intact. ASSESSMENT: 1. Acute mid sigmoid diverticulitis with perforation and contained leak measuring 2.8 cm 2. Abdominal pain PLAN: -Continue antibiotics -Keep patient nothing by mouth except for ice chips -Continue IV fluids -Continue to monitor patient closely -Lovenox for DVT prophylaxis Physician Order Runner note has been reviewed by physician. Signing provider agrees with the documented findings, assessment, and plan of care. Objective - Vital Signs Vital signs: Vital Signs Temp 97.9 F 12/01/20 11:40 Pulse 73 12/01/20 11:40 Resp 17 12/01/20 11:40 BP 123/76 12/01/20 11:40 Pulse Ox 96 12/01/20 11:40 Intake & Output 11/30/20 12/01/20 12/01/20 18:59 06:59 18:59 Intake Total 1000 Balance 1000 Weight 107.048 kg Intake: Intake, IV Titration 1000 Amount Lactated Ringers 1,000 ml 1000 @ 125 mls/hr IV .Q8H [facility] Rx#:[id number] Other: Voiding Method Toilet - Labs CBC & Chem 7: 12/01/20 06:11 12/01/20 06:11 Labs: Abnormal Lab Results - Last 24 Hours (Table) 12/01/20 12/01/20 Range/Units 06:11 06:11 WBC 12.0 H (3.8-10.6) k/uL Neutrophils # 9.8 H (1.3-7.7) k/uL BUN/Creatinine Ratio 22.50 H (12.00-20.00) Ratio
[2020-12-01] MEDS: PANTOPRAZOLE 40 MG/10 ML VIAL IVP SCH (14:57)
--- NOTE | 2020-12-01 16:27 | P.CONS ---
History of Present Illness - Reason for Consult Consult date: 12/01/20 Abdominal pain, diverticulitis Requesting physician: Colleen Xavier - Chief Complaint Abdominal pain - History of Present Illness This is a pleasant 75-year-old white male patient with a past medical history of hypertension, hyperlipidemia, and BPH who presented to the emergency room yesterday with abdominal pain. The patient states he started having diffuse abdominal pain on , which he thought was constipation. He then began to have fever and chills and worsening abdominal pain. He had a max temperature of 103 at home. The pain then began to localize down in his left lower abdomen. He started having multiple episodes of loose bowels, denies any blood in stool. He did report on and Monday he had some nausea with no vomiting. The patient believes he had a colonoscopy approximately 5 years ago for which he states he thought he had 1-2 per colon polyps and diverticulosis noted. He has had no other history of diverticulitis. As part of his workup in the emergency department a CT of the abdomen was completed which showed moderate inflammation in the left lower quadrant and upper pelvis. This may relate to acute mid sigmoid diverticulitis. A 2.8 cm fluid locule containing some air, possible small contained leak, is located along the anterior margin of the mid sigmoid colon and abuts and inflamed and thickened loop of small bowel. Moderate to severe regional enteritis is the alternative consideration. Follow-up CT recommended if patient does not respond to conservative management. Wall thickening and surrounding fat stranding of the bladder dome, likely reactive inflammation. Correlate to exclude cystitis. Today's WBC 12.0, hemoglobin 16.0, hematocrit 46.6, platelet count 155. PT 10.4, INR 1.0. Sodium 139, potassium 4.4 BUN 18, creatinine 0.8, total bilirubin 1.9, AST 31, ALT 30, alkaline phosphatase 62. He currently states abdominal pain is improved, limited down to the left lower quadrant. He denies any current nausea or vomiting, fever, or blood in stool. He states he is having multiple small loose bowel movements. Review of Systems Constitutional: Reports fever Eyes: denies blurred vision, denies pain Ears, nose, mouth and throat: Denies headache, Denies sore throat Cardiovascular: Denies chest pain, Denies shortness of breath Respiratory: Denies cough Gastrointestinal: Reports abdominal pain, Reports change in bowel habits, Report s constipation, Reports diarrhea, Reports nausea, Denies BRBPR, Denies coffee ground emesis, Denies hematemesis, Denies hematochezia, Denies melena, Denies vomiting Musculoskeletal: Denies myalgias Integumentary: Denies pruritus, Denies rash Neurological: Denies numbness, Denies weakness Psychiatric: Denies anxiety, Denies depression Endocrine: Denies fatigue, Denies weight change Past Medical History Past Medical History: No Reported History History of Any Multi-Drug Resistant Organisms: None Reported Past Surgical History: Hernia Repair Past Anesthesia/Blood Transfusion Reactions: No Reported Reaction Past Psychological History: No Psychological Hx Reported Smoking Status: Former smoker Past Alcohol Use History: Rare Past Drug Use History: None Reported - Past Family History Father Family Medical History: Unable to Obtain Mother Family Medical History: Cancer Additional Family Medical History / Comment(s): Emphysema Medications and Allergies Home Medications Medication Instructions Recorded Confirmed Type 5-Hydroxytryptophan (5-Htp) [5-Htp 100 mg PO HS 11/30/20 11/30/20 History Cr] Aspirin 162 mg PO DAILY 11/30/20 11/30/20 History Atorvastatin Calcium [Lipitor] 80 mg PO HS 11/30/20 11/30/20 History Cholecalciferol (Vitamin D3) 125 mcg PO DAILY 11/30/20 11/30/20 History [Vitamin D3 (5000 Iu)] Cinnamon Bark [Cinnamon] 500 mg PO W/LUNCH 11/30/20 11/30/20 History Clotrimazole Cream [Lotrimin Cream] 1 applic TOPICAL BID 11/30/20 11/30/20 History Donepezil [Aricept] 10 mg PO DAILY 11/30/20 11/30/20 History Finasteride [Proscar] 5 mg PO HS 11/30/20 11/30/20 History L.acidoph,Paracasei, B.lactis 1 cap PO W/LUNCH 11/30/20 11/30/20 History [Probiotic] Montelukast [Singulair] 10 mg PO DAILY 11/30/20 11/30/20 History Multivitamins, Thera [Multivitamin 1 tab PO AC-SUPPER 11/30/20 11/30/20 History (formulary)] Propranolol [Inderal] 40 mg PO AC-BID 11/30/20 11/30/20 History Super B-Complex 1 tab PO DAILY 11/30/20 11/30/20 History Terazosin [Hytrin] 5 mg PO BID 11/30/20 11/30/20 History Zinc Gluconate [Zinc] 50 mg PO DAILY 11/30/20 11/30/20 History Allergies Allergy/AdvReac Type Severity Reaction Status Date / Time No Known Allergies Allergy Verified 11/30/20 13:06 Physical Exam Vitals: Vital Signs Temp Pulse Pulse Resp BP BP BP 12/01/20 11:40 97.9 F 73 17 123/76 12/01/20 04:59 98.0 F 87 14 161/82 11/30/20 21:00 98.3 F 76 132/81 11/30/20 17:13 98.6 F 77 16 159/76 11/30/20 15:06 72 16 159/87 Pulse Ox 12/01/20 11:40 96 12/01/20 04:59 94 L 11/30/20 21:00 97 11/30/20 17:13 98 11/30/20 15:06 98 Intake and Output 11/30/20 12/01/20 12/01/20 22:59 06:59 14:59 Intake Total 1000 Balance 1000 Intake: Intake, IV Titration 1000 Amount Lactated Ringers 1,000 ml 1000 @ 125 mls/hr IV .Q8H [facility] Rx#:[id number] Other: Voiding Method Toilet Weight 107.048 kg General appearance: The patient is alert, oriented, appears in no acute distress. HET: Head is normocephalic and atraumatic. Neck: Supple without lymphadenopathy. Trachea midline. Heart: S1 S2. Regular rate and rhythm. Lungs: Clear to auscultation. Abdomen: Soft, left lower quadrant tenderness, nondistended with bowel sounds. No peritoneal signs. Guarding or rigidity. Left lateral side of the abdomen with its superficial wound/scabbing with no active drainage or bleeding. Extremities: Normal skin color and turgor. No cyanosis, rash, ulceration, clubbing, or edema. Radial and pedal pulses are 2/4 bilaterally. Neurological: No focal deficits. Alert and oriented 3. Results CBC & Chem 7: 12/01/20 06:11 12/01/20 06:11 Labs: Abnormal Lab Results - Last 24 Hours (Table) 12/01/20 12/01/20 Range/Units 06:11 06:11 WBC 12.0 H (3.8-10.6) k/uL Neutrophils # 9.8 H (1.3-7.7) k/uL BUN/Creatinine Ratio 22.50 H (12.00-20.00) Ratio CT scan - abdomen: report reviewed (moderate inflammation in the left lower quadrant and upper pelvis. This may relate to acute mid sigmoid diverticulitis. A 2.8 cm fluid locule containing some air, possible small contained leak, is located along the anterior margin of the mid sigmoid colon and abuts and inflamed and thickened loop ) Assessment and Plan (1) Abdominal pain Narrative/Plan: This is a 75-year-old gentleman who presented to the emergency department yesterday with complaints of severe abdominal pain that began on . He states the pain began diffuse throughout the abdomen, with feelings of constipation. He later had a bowel movement, followed by fever and chills. Pain then radiated down to the left lower abdomen and persisted. He states he had nausea, no vomiting. He denies any blood in his stool or blood per rectum. States his last colonoscopy was approximately 5 years ago, for which he believes he had polyps and diverticulosis. He has no history of diverticulitis. Found on CT of the abdomen moderate inflammation in the left lower quadrant and upper pelvis. This may relate to acute mid sigmoid diverticulitis. A 2.8 cm fluid locule containing some air, possible small contained leak, is located along the anterior margin of the mid sigmoid colon and abuts and inflamed and thickened loop of small bowel. Moderate to severe regional enteritis is the alternative consideration. Follow-up CT recommended if patient does not respond to conservative management. Wall thickening and surrounding fat stranding of the bladder dome, likely reactive inflammation. Correlate to exclude cystitis. The patient is currently on Zosyn, abdominal pain has improved. He denies any further nausea or vomiting. He is been afebrile. Surgery is on consult. We'll continue to keep nothing by mouth, broad-spectrum antibiotics, and possible repeat CT of the abdomen in 3-4 days. Current Visit: Yes Status: Acute Code(s): R10.9 - UNSPECIFIED ABDOMINAL PAIN SNOMED Code(s): 56586239 (2) Diverticulitis of colon with perforation Narrative/Plan: Surgical service is on consult, conservative management at this time. Continue broad-spectrum antibiotics. Current Visit: Yes Status: Acute Code(s): K57.20 - DVTRCLI OF LG INT W PERFORATION AND ABSCESS W/O BLEEDING SNOMED Code(s): 4904023 Plan: 1. Symptomatic and supportive care 2. Nothing by mouth except medications and ice chips 3. Continue IV antibiotics as ordered 4. Monitor labs closely 5. Appreciate recommendations from surgical services 6. Repeat CT of abdomen if symptoms worsen Thank you for this consultation, we will continue to follow Dr. Keeley Moy I agree with the dictator's note, documented as a scribe by Kaleigh Haddad.
[2020-12-01] MEDS: MULTIVITAMINS, THERA 1 EACH TAB PO SCH (18:18)
[2020-12-01] MEDS ORDERED: PIPERACILLIN-TAZOBACTAM 3.375 GM in SODIUM CHLORIDE 0.9% 100 ML IVPB SCH (20:00)
[2020-12-01] MEDS: FINASTERIDE 5 MG TAB PO SCH (21:28)
[2020-12-01] MEDS: ATORVASTATIN 80 MG TAB PO SCH (21:29)
[2020-12-01] MEDS: DOXAZOSIN 4 MG TAB PO SCH (21:31)
--- NOTE | 2020-12-01 21:56 | P.PN ---
Progress Note - Text Progress Note Date: 12/01/20 Chief Complaint: Abdominal pain History of presenting complaint: This is a very pleasant 75-year-old patient Dr. Hutton. Chronic stable medical conditions include BPH, hyperlipidemia, benign forgetfulness of them daily. Patient rather active. 4 days ago he finished the morning meeting is started noticing some abdominal discomfort. By late in the day he was not feeling well. Had a fever up to 103. Chills. Not feeling well. Fever broke the following day. He did decrease appetite. Abdominal symptoms progress. Continue to feel worse. Patient had no urinary symptoms. He did follow with Dr. Hutton's office will send him down for a computed tomography scan. Patient also had some loose stools. Admitted with acute sigmoid diverticulitis with acute perforation. Started on IV Zosyn IV fluids nothing by mouth. Today: Sitting up in bed. Head couple of loose stools. Some abdominal pain. No nausea vomiting. Review of systems: Was done for constitutional, cardiovascular, GI, pulmonary. relevant finding as above Active Medications Aspirin (Aspirin 81 Mg) 162 mg PO DAILY [facility] Last Admin: 12/01/20 09:32 Dose: Not Given Documented by: Atorvastatin Calcium (Atorvastatin 80 Mg Tab) 80 mg PO [facility] Last Admin: 12/01/20 21:29 Dose: 80 mg Documented by: Cholecalciferol (Cholecalciferol 25 Mcg (1000 Iu) Tablet) 125 mcg PO DAILY [facility] Last Admin: 12/01/20 09:32 Dose: Not Given Documented by: Clotrimazole (Clotrimazole 1% Cream 30 Gm Tube) 1 applic TOPICAL BID [facility] Last Admin: 12/01/20 21:29 Dose: Not Given Documented by: Donepezil HCl (Donepezil 10 Mg Tab) 10 mg PO DAILY [facility] Last Admin: 12/01/20 09:32 Dose: Not Given Documented by: Doxazosin Mesylate (Doxazosin 4 Mg Tab) 8 mg PO [facility] Last Admin: 12/01/20 21:31 Dose: 8 mg Documented by: Enoxaparin Sodium (Enoxaparin 40 Mg/0.4 Ml Syringe) 40 mg SQ DAILY [facility] Last Admin: 12/01/20 09:22 Dose: 40 mg Documented by: Finasteride (Finasteride 5 Mg Tab) 5 mg PO [facility] Last Admin: 12/01/20 21:28 Dose: 5 mg Documented by: Lactated Ringer's (Lactated Ringers) 1,000 mls @ 125 mls/hr IV .Q8H [facility] Last Admin: 12/01/20 12:26 Dose: 125 mls/hr Documented by: Piperacillin Sod/Tazobactam (Sod 3.375 gm/ Sodium Chloride) 100 mls @ 25 mls/hr IVPB Q8H [facility] Last Admin: 12/01/20 18:20 Dose: 25 mls/hr Documented by: Lactobacillus Acidoph/Bulgaricus (Lactobacillus Acidoph & Bulgar 1 Each Packet) 1 each PO W/LUNCH [facility] Last Admin: 12/01/20 11:28 Dose: Not Given Documented by: Montelukast Sodium (Montelukast 10 Mg Tab) 10 mg PO DAILY [facility] Last Admin: 12/01/20 09:32 Dose: Not Given Documented by: Multivitamins (Multivitamins, Thera 1 Each Tab) 1 each PO AC-SUPPER [facility] Last Admin: 12/01/20 18:18 Dose: 1 each Documented by: Naloxone HCl (Naloxone 0.4 Mg/Ml 1 Ml Vial) 0.2 mg IV Q2M PRN PRN Reason: Opioid Reversal Pantoprazole Sodium (Pantoprazole 40 Mg/10 Ml Vial) 40 mg IVP DAILY [facility] Last Admin: 12/01/20 14:57 Dose: 40 mg Documented by: Propranolol HCl (Propranolol 40 Mg Tab) 40 mg PO AC-BID [facility] Last Admin: 12/01/20 18:18 Dose: 40 mg Documented by: Zinc Sulfate (Zinc Sulfate 220 Mg Cap) 220 mg PO DAILY [facility] Last Admin: 12/01/20 09:32 Dose: Not Given Documented by: Past medical history to include: BPH, hyperlipidemia, benign forgetfulness of the elderly 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 Alcohol rarely. Family history: Reviewed, noncontributory to presentation Physical examination: VITAL SIGNS: 97.9, 73, 17, 1 23 x 36, 96% room air GENERAL: BMI 30.3, sitting on bed, awake. EYES: Pupils equal. Conjunctiva normal. HEENT: External appearance of nose and ears normal, oral cavity grossly normal. NECK: JVD not raised; masses not palpable. HEART: First and second heart sounds are normal; no edema. LUNGS: Respiratory rate normal; clear to auscultation. ABDOMEN: Soft, tenderness, no guarding rigidity, liver spleen not palpable, no masses palpable. PSYCH: Alert and oriented x3; mood and affect normal. INVESTIGATIONS, reviewed in the clinical context: December 01: WBC 12 hemoglobin 16 potassium 4.4 creatinine 0.8 WBC 11.8 hemoglobin 16.7 platelets 145 neutrophils 9.6 potassium 3.8 creatinine 0.89 Coronavirus [PCR]-not detected Computed tomography scan abdomen and pelvis with contrast: Descending and sigmoid colonic diverticulosis. Moderate inflammation noted within the left lower quadrant and upper pelvis. Crit is decreased inflammation noted on the mid sigmoid colon. 2.8 cm fluid no acute contains some air on that date her margin of the mid sigmoid colon sitting or inflamed and thickened loop of small bowel. Prostate again enlarged. Assessment and plan: -Acute sigmoid diverticulitis with localized perforation 2.8 cm.-slow to respond nothing by mouth. General surgery was consulted. IV Zosyn and IV fluids. 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 Continue IV antibiotics. Encouraged to sit up in a chair.
[2020-12-02] MEDS: PIPERACILLIN-TAZOBACTAM 3.375 GM in SODIUM CHLORIDE 0.9% 100 ML IVPB SCH ×3 (02:11→17:56)
[2020-12-02] MEDS: LACTATED RINGERS 1,000 ML IV SCH ×3 (02:14→14:00)
[2020-12-02 07:13] LABS: Basophils % (A) 0 %; Eosinophils # (A) 0.2 k/uL (0-0.7); Eosinophils % (A) 1 %; HCT 41.7 % (39.0-53.0); HGB 14.4 gm/dL (13.0-17.5); Lymphocytes % (A) 8 %; MCH 32.6 pg (25.0-35.0); MCHC 34.5 g/dL (31.0-37.0); MCV 94.4 fL (80.0-100.0); Mean Platelet Volume 7.3; Monocytes # (A) 0.7 k/uL (0-1.0); Monocytes % (A) 6 %; Neutrophils # (A) 10.4 k/uL (1.3-7.7); Neutrophils % (A) 84 %; Platelet Count 172 k/uL (150-450); RBC 4.41 m/uL (4.30-5.90); RDW 12.6 % (11.5-15.5); WBC 12.4 k/uL (3.8-10.6)
[2020-12-02] MEDS: ENOXAPARIN 40 MG/0.4 ML SYRINGE SQ SCH (08:04)
[2020-12-02] MEDS: PROPRANOLOL 40 MG TAB PO SCH ×2 (08:04→16:45)
[2020-12-02] MEDS: ASPIRIN 81 MG PO SCH (08:05)
[2020-12-02] MEDS: PANTOPRAZOLE 40 MG/10 ML VIAL IVP SCH (08:05)
[2020-12-02] MEDS: CHOLECALCIFEROL 25 MCG (1000 IU) TABLET PO SCH (08:08)
[2020-12-02] MEDS: CLOTRIMAZOLE 1% CREAM 30 GM TUBE TOPICAL SCH ×2 (08:09→20:59)
[2020-12-02] MEDS: MONTELUKAST 10 MG TAB PO SCH (08:09)
[2020-12-02] MEDS: DONEPEZIL 10 MG TAB PO SCH (08:09)
[2020-12-02] MEDS: ZINC SULFATE 220 MG CAP PO SCH (08:10)
--- NOTE | 2020-12-02 11:12 | P.PN ---
Subjective Progress Note Date: 12/02/20 CHIEF COMPLAINT: Abdominal pain HISTORY OF PRESENT ILLNESS: Surgical service is following in regards to acute diverticulitis with perforation and contained leak. Patient's abdominal pain is showing improvement. He denies any nausea or vomiting. He is having bowel movements. No blood in the stools. Afebrile. WBC 12.4 PHYSICAL EXAM: VITAL SIGNS: Reviewed. GENERAL: Well-developed in no acute distress. HEENT: No sclera icterus. Extraocular movements grossly intact. Moist buccal mucosa. Head is atraumatic, normocephalic. ABDOMEN: Soft. Nondistended. Left lower quadrant tenderness NEUROLOGIC: Alert and oriented. Cranial nerves II through XII grossly intact. ASSESSMENT: 1. Acute mid sigmoid diverticulitis with perforation and contained leak measuring 2.8 cm 2. Abdominal pain PLAN: -Advance diet to clear liquids -Continue antibiotics -Continue IV fluids -Continue to monitor patient closely -Lovenox for DVT prophylaxis -GI prophylaxis Protonix Physician Pole Sander Operator note has been reviewed by physician. Signing provider agrees with the documented findings, assessment, and plan of care. Objective - Vital Signs Vital signs: Vital Signs Temp 98.5 F 12/02/20 10:11 Pulse 82 12/02/20 10:11 Resp 15 12/02/20 10:11 BP 136/76 12/02/20 10:11 Pulse Ox 98 12/02/20 10:11 Intake & Output 12/01/20 12/02/20 12/02/20 18:59 06:59 18:59 Intake Total 1700 1100 Balance 1700 1100 Intake: Intake, IV Titration 1700 1100 Amount Lactated Ringers 1,000 ml 1500 1000 @ 125 mls/hr IV .Q8H [facility] Rx#:[id number] Piperacillin-Tazobactam 3 200 100 .375 gm In Sodium Chloride 0.9% 100 ml @ 25 mls/hr IVPB Q8H [facility] Rx#: [id number] Other: Voiding Method Toilet - Labs CBC & Chem 7: 12/02/20 06:45 12/01/20 06:11 Labs: Abnormal Lab Results - Last 24 Hours (Table) 12/01/20 12/01/20 12/01/20 Range/Units 06:11 06:11 08:03 WBC (3.8-10.6) k/uL Neutrophils # (1.3-7.7) k/uL BUN/Creatinine Ratio 22.50 H (12.00-20.00) Ratio Total Bilirubin 1.3 H (0.3-1.2) mg/dL Procalcitonin 0.14 H (0.02-0.09) ng/mL 12/02/20 Range/Units 06:45 WBC 12.4 H (3.8-10.6) k/uL Neutrophils # 10.4 H (1.3-7.7) k/uL BUN/Creatinine Ratio (12.00-20.00) Ratio Total Bilirubin (0.3-1.2) mg/dL Procalcitonin (0.02-0.09) ng/mL Microbiology - Last 24 Hours (Table) 11/30/20 16:13 Blood Culture - Preliminary Blood No Growth after 24 hours
[2020-12-02] MEDS: LACTOBACILLUS ACIDOPH & BULGAR 1 EACH PACKET PO SCH (13:59)
--- NOTE | 2020-12-02 14:16 | P.PN ---
Subjective Progress Note Date: 12/02/20 Principal diagnosis: Abdominal pain, diverticulitis with abscess This is a pleasant 75-year-old white male patient with a past medical history of hypertension, hyperlipidemia, and BPH who presented to the emergency room yesterday with abdominal pain. The patient states he started having diffuse abdominal pain on , which he thought was constipation. He then began to have fever and chills and worsening abdominal pain. He had a max temperature of 103 at home. The pain then began to localize down in his left lower abdomen. He started having multiple episodes of loose bowels, denies any blood in stool. He did report on and Monday he had some nausea with no vomiting. The patient believes he had a colonoscopy approximately 5 years ago for which he states he thought he had 1-2 per colon polyps and diverticulosis noted. He has had no other history of diverticulitis. As part of his workup in the emergency department a CT of the abdomen was completed which showed moderate inflammation in the left lower quadrant and upper pelvis. This may relate to acute mid sigmoid diverticulitis. A 2.8 cm fluid locule containing some air, possible small contained leak, is located along the anterior margin of the mid sigmoid colon and abuts and inflamed and thickened loop of small bowel. Moderate to severe regional enteritis is the alternative consideration. On today's evaluation the patient states his pain has improved greatly, he is having a decreased amount of stool output, he denies any nausea or vomiting. He remains on IV antibiotics. Surgery is on consult with no plans at this time of any surgical intervention. He was increased to a clear liquid diet and is tolerating it well. Objective - Vital Signs Vital signs: Vital Signs Temp 98.4 F 12/02/20 11:40 Pulse 67 12/02/20 11:40 Resp 17 12/02/20 11:40 BP 117/72 12/02/20 11:40 Pulse Ox 97 12/02/20 11:40 Intake & Output 12/01/20 12/02/20 12/02/20 18:59 06:59 18:59 Intake Total 1700 1100 Balance 1700 1100 Intake: Intake, IV Titration 1700 1100 Amount Lactated Ringers 1,000 ml 1500 1000 @ 125 mls/hr IV .Q8H [facility] Rx#:[id number] Piperacillin-Tazobactam 3 200 100 .375 gm In Sodium Chloride 0.9% 100 ml @ 25 mls/hr IVPB Q8H [facility] Rx#: [id number] Other: Voiding Method Toilet - Exam General appearance: The patient is alert, oriented, appears in no acute distress. HET: Head is normocephalic and atraumatic. Conjunctiva pink. Sclera anicteric. Neck: Supple without lymphadenopathy. Abdomen: Soft, left lower quadrant tenderness, nondistended with bowel sounds. No guarding or rigidity. Extremities: Normal skin color and turgor. No pedal edema Skin: No rashes, no jaundice Neurological: No focal deficits. Alert and oriented 3. - Labs CBC & Chem 7: 12/02/20 06:45 12/01/20 06:11 Labs: Abnormal Lab Results - Last 24 Hours (Table) 12/01/20 12/01/20 12/02/20 Range/Units 06:11 08:03 06:45 WBC 12.4 H (3.8-10.6) k/uL Neutrophils # 10.4 H (1.3-7.7) k/uL Total Bilirubin 1.3 H (0.3-1.2) mg/dL Procalcitonin 0.14 H (0.02-0.09) ng/mL Microbiology - Last 24 Hours (Table) 11/30/20 16:13 Blood Culture - Preliminary Blood No Growth after 24 hours Assessment and Plan (1) Abdominal pain Narrative/Plan: This is a 75-year-old gentleman who presented to the emergency department yesterday with complaints of severe abdominal pain that began on . He states the pain began diffuse throughout the abdomen, with feelings of constipation. He later had a bowel movement, followed by fever and chills. Pain then radiated down to the left lower abdomen and persisted. He states he had nausea, no vomiting. He denies any blood in his stool or blood per rectum. States his last colonoscopy was approximately 5 years ago, for which he believes he had polyps and diverticulosis. He has no history of diverticulitis. Found on CT of the abdomen moderate inflammation in the left lower quadrant and upper pelvis. This may relate to acute mid sigmoid diverticulitis. A 2.8 cm fluid locule containing some air, possible small contained leak, is located along the anterior margin of the mid sigmoid colon and abuts and inflamed and thickened loop of small bowel. Moderate to severe regional enteritis is the alternative consideration. Follow-up CT recommended if patient does not respond to conservative management. Wall thickening and surrounding fat stranding of the bladder dome, likely reactive inflammation. Correlate to exclude cystitis. The patient is currently on Zosyn, abdominal pain has improved. He denies any further nausea or vomiting. He is been afebrile. Surgery is on consult. We'll continue to keep nothing by mouth, broad-spectrum antibiotics, and possible repeat CT of the abdomen in 3-4 days. Current Visit: Yes Status: Acute Code(s): R10.9 - UNSPECIFIED ABDOMINAL PAIN SNOMED Code(s): 47673065 (2) Diverticulitis of colon with perforation Narrative/Plan: Surgical service is on consult, conservative management at this time. Continue broad-spectrum antibiotics. Current Visit: Yes Status: Acute Code(s): K57.20 - DVTRCLI OF LG INT W PERFORATION AND ABSCESS W/O BLEEDING SNOMED Code(s): 2355176 Plan: 1. Symptomatic and supportive care 2. Clear liquid diet 3. Continue IV antibiotics as ordered 4. Monitor labs closely 5. Appreciate recommendations from surgical services 6. Recommend repeat CT of abdomen within 48 hours Thank you for this consultation, we will continue to follow Dr. Keeley Moy I agree with the dictator's note, documented as a scribe by Kaleigh Haddad.
[2020-12-02] MEDS: MULTIVITAMINS, THERA 1 EACH TAB PO SCH (16:45)
[2020-12-02] MEDS: FINASTERIDE 5 MG TAB PO SCH (21:01)
[2020-12-02] MEDS: ATORVASTATIN 80 MG TAB PO SCH (21:01)
[2020-12-02] MEDS: DOXAZOSIN 4 MG TAB PO SCH (21:02)
--- NOTE | 2020-12-02 21:34 | P.PN ---
Progress Note - Text Progress Note Date: 12/02/20 Chief Complaint: Abdominal pain History of presenting complaint: This is a very pleasant 75-year-old patient Dr. Hutton. Chronic stable medical conditions include BPH, hyperlipidemia, benign forgetfulness of them daily. Patient rather active. 4 days ago he finished the morning meeting is started noticing some abdominal discomfort. By late in the day he was not feeling well. Had a fever up to 103. Chills. Not feeling well. Fever broke the following day. He did decrease appetite. Abdominal symptoms progress. Continue to feel worse. Patient had no urinary symptoms. He did follow with Dr. Hutton's office will send him down for a computed tomography scan. Patient also had some loose stools. Admitted with acute sigmoid diverticulitis with acute perforation. Started on IV Zosyn IV fluids nothing by mouth. Today: Reclining in bed. Earlier sat up in a chair. Pain is better. Some loose stools. No nausea vomiting. Started on clear liquid diet for lunch by surgery. Has been up to the bathroom Review of systems: Was done for constitutional, cardiovascular, GI, pulmonary. relevant finding as above Active Medications Aspirin (Aspirin 81 Mg) 162 mg PO DAILY [facility] Last Admin: 12/02/20 08:05 Dose: Not Given Documented by: Atorvastatin Calcium (Atorvastatin 80 Mg Tab) 80 mg PO [facility] Last Admin: 12/02/20 21:01 Dose: 80 mg Documented by: Cholecalciferol (Cholecalciferol 25 Mcg (1000 Iu) Tablet) 125 mcg PO DAILY [facility] Last Admin: 12/02/20 08:08 Dose: Not Given Documented by: Clotrimazole (Clotrimazole 1% Cream 30 Gm Tube) 1 applic TOPICAL BID [facility] Last Admin: 12/02/20 20:59 Dose: Not Given Documented by: Donepezil HCl (Donepezil 10 Mg Tab) 10 mg PO DAILY [facility] Last Admin: 12/02/20 08:09 Dose: Not Given Documented by: Doxazosin Mesylate (Doxazosin 4 Mg Tab) 8 mg PO HS [facility] Last Admin: 12/02/20 21:02 Dose: 8 mg Documented by: Enoxaparin Sodium (Enoxaparin 40 Mg/0.4 Ml Syringe) 40 mg SQ DAILY [facility] Last Admin: 12/02/20 08:04 Dose: 40 mg Documented by: Finasteride (Finasteride 5 Mg Tab) 5 mg PO HS [facility] Last Admin: 12/02/20 21:01 Dose: 5 mg Documented by: Lactated Ringer's (Lactated Ringers) 1,000 mls @ 125 mls/hr IV .Q8H [facility] Last Admin: 12/02/20 14:00 Dose: 125 mls/hr Documented by: Piperacillin Sod/Tazobactam (Sod 3.375 gm/ Sodium Chloride) 100 mls @ 25 mls/hr IVPB Q8H [facility] Last Admin: 12/02/20 17:56 Dose: 25 mls/hr Documented by: Lactobacillus Acidoph/Bulgaricus (Lactobacillus Acidoph & Bulgar 1 Each Packet) 1 each PO W/LUNCH [facility] Last Admin: 12/02/20 13:59 Dose: 1 each Documented by: Montelukast Sodium (Montelukast 10 Mg Tab) 10 mg PO DAILY [facility] Last Admin: 12/02/20 08:09 Dose: Not Given Documented by: Multivitamins (Multivitamins, Thera 1 Each Tab) 1 each PO AC-SUPPER [facility] Last Admin: 12/02/20 16:45 Dose: 1 each Documented by: Naloxone HCl (Naloxone 0.4 Mg/Ml 1 Ml Vial) 0.2 mg IV Q2M PRN PRN Reason: Opioid Reversal Pantoprazole Sodium (Pantoprazole 40 Mg/10 Ml Vial) 40 mg IVP DAILY [facility] Last Admin: 12/02/20 08:05 Dose: 40 mg Documented by: Propranolol HCl (Propranolol 40 Mg Tab) 40 mg PO AC-BID [facility] Last Admin: 12/02/20 16:45 Dose: 40 mg Documented by: Zinc Sulfate (Zinc Sulfate 220 Mg Cap) 220 mg PO DAILY [facility] Last Admin: 12/02/20 08:10 Dose: Not Given Documented by: Past medical history to include: BPH, hyperlipidemia, benign forgetfulness of the elderly Social history: 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 Alcohol rarely. Family history: Reviewed, noncontributory to presentation Physical examination: VITAL SIGNS: 98.4, 67, 17, 117/72, 97% room air GENERAL: BMI 30.3, sitting on bed, awake. EYES: Pupils equal. Conjunctiva normal. HEENT: External appearance of nose and ears normal, oral cavity grossly normal. NECK: JVD not raised; masses not palpable. HEART: First and second heart sounds are normal; no edema. LUNGS: Respiratory rate normal; clear to auscultation. ABDOMEN: Soft, LLQ tenderness decreased, no guarding rigidity, liver spleen not palpable, no masses palpable. PSYCH: Alert and oriented x3; mood and affect normal. INVESTIGATIONS, reviewed in the clinical context: December 02: WBC 12.4 hemoglobin 14.4 S1 72 December 01: WBC 12 hemoglobin 16 potassium 4.4 creatinine 0.8 WBC 11.8 hemoglobin 16.7 platelets 145 neutrophils 9.6 potassium 3.8 creatinine 0.89 Coronavirus [PCR]-not detected Computed tomography scan abdomen and pelvis with contrast: Descending and sigmoid colonic diverticulosis. Moderate inflammation noted within the left lower quadrant and upper pelvis. Crit is decreased inflammation noted on the mid sigmoid colon. 2.8 cm fluid no acute contains some air on that date her margin of the mid sigmoid colon sitting or inflamed and thickened loop of small bowel. Prostate again enlarged. Assessment and plan: -Acute sigmoid diverticulitis with localized perforation 2.8 cm.-/improvement Started on clear liquids. General surgery . IV Zosyn and IV fluids. 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 Continue IV antibiotics. Started on clear liquids
[2020-12-03] MEDS: LACTATED RINGERS 1,000 ML IV SCH ×4 (00:54→22:46)
[2020-12-03] MEDS: PIPERACILLIN-TAZOBACTAM 3.375 GM in SODIUM CHLORIDE 0.9% 100 ML IVPB SCH ×3 (01:46→18:05)
[2020-12-03] MEDS: ASPIRIN 81 MG PO SCH (08:41)
[2020-12-03] MEDS: CHOLECALCIFEROL 25 MCG (1000 IU) TABLET PO SCH (08:41)
[2020-12-03] MEDS: PANTOPRAZOLE 40 MG/10 ML VIAL IVP SCH (08:42)
[2020-12-03] MEDS: PROPRANOLOL 40 MG TAB PO SCH ×2 (08:42→18:05)
[2020-12-03] MEDS: CLOTRIMAZOLE 1% CREAM 30 GM TUBE TOPICAL SCH ×2 (08:43→20:01)
[2020-12-03] MEDS: MONTELUKAST 10 MG TAB PO SCH (08:43)
[2020-12-03] MEDS: DONEPEZIL 10 MG TAB PO SCH (08:44)
[2020-12-03] MEDS: ENOXAPARIN 40 MG/0.4 ML SYRINGE SQ SCH (08:44)
[2020-12-03] MEDS: ZINC SULFATE 220 MG CAP PO SCH (08:45)
--- NOTE | 2020-12-03 11:11 | P.PN ---
Subjective Progress Note Date: 12/03/20 CHIEF COMPLAINT: Abdominal pain HISTORY OF PRESENT ILLNESS: Surgical service is following in regards to acute diverticulitis with perforation and contained leak. Patient's abdominal pain is improving each day. He is tolerating a clear liquid diet. He is having bowel movements. Denies any blood in stool. Denies any nausea or vomiting. Afebrile. Labs pending PHYSICAL EXAM: VITAL SIGNS: Reviewed. GENERAL: Well-developed in no acute distress. HEENT: No sclera icterus. Extraocular movements grossly intact. Moist buccal mucosa. Head is atraumatic, normocephalic. ABDOMEN: Soft. Nondistended. Left lower quadrant tenderness NEUROLOGIC: Alert and oriented. Cranial nerves II through XII grossly intact. ASSESSMENT: 1. Acute mid sigmoid diverticulitis with perforation and contained leak measuring 2.8 cm 2. Abdominal pain PLAN: -Continue clear liquid diet -Continue antibiotics -Continue IV fluids -Continue to monitor patient closely -Lovenox for DVT prophylaxis -GI prophylaxis Protonix Physician Digital Marketing Consultant note has been reviewed by physician. Signing provider agrees with the documented findings, assessment, and plan of care. Objective - Vital Signs Vital signs: Vital Signs Temp 98.1 F 12/03/20 07:37 Pulse 84 12/03/20 07:38 Resp 17 12/03/20 07:38 BP 120/70 12/03/20 07:37 Pulse Ox 94 L 12/03/20 07:37 Intake & Output 12/02/20 12/03/20 12/03/20 18:59 06:59 18:59 Intake Total 1350 Balance 1350 Intake: Intake, IV Titration 1350 Amount Lactated Ringers 1,000 ml 1250 @ 125 mls/hr IV .Q8H [facility] Rx#:[id number] Piperacillin-Tazobactam 3 100 .375 gm In Sodium Chloride 0.9% 100 ml @ 25 mls/hr IVPB Q8H [facility] Rx#: [id number] Other: Voiding Method Toilet - Labs CBC & Chem 7: 12/02/20 06:45 12/01/20 06:11 Labs: Microbiology - Last 24 Hours (Table) 11/30/20 16:13 Blood Culture - Preliminary Blood No Growth after 48 hours
[2020-12-03 11:15] LABS: Basophils % (A) 0 %; Eosinophils # (A) 0.1 k/uL (0-0.7); Eosinophils % (A) 1 %; HCT 42.4 % (39.0-53.0); HGB 14.4 gm/dL (13.0-17.5); Lymphocytes # (A) 1.2 k/uL (1.0-4.8); Lymphocytes % (A) 10 %; MCH 32.2 pg (25.0-35.0); MCHC 33.9 g/dL (31.0-37.0); MCV 95.2 fL (80.0-100.0); Monocytes # (A) 0.8 k/uL (0-1.0); Monocytes % (A) 8 %; Neutrophils # (A) 8.8 k/uL (1.3-7.7); Neutrophils % (A) 80 %; Platelet Count 179 k/uL (150-450); RBC 4.46 m/uL (4.30-5.90); RDW 12.5 % (11.5-15.5); WBC 11.1 k/uL (3.8-10.6)
[2020-12-03] MEDS: ACETAMINOPHEN TAB 325 MG TAB PO PRN (11:53)
--- NOTE | 2020-12-03 13:41 | CDI ---
Documentation Clarification Form Date: 12/03/2020 01:09:45 PM From: Ev Velasco RN, CCDS Admit Date: 11/30/2020 02:27:00 PM Patient Name: Van Samaniego Visit Number: [id number] Discharge Date: ATTENTION: The Clinical Documentation Specialists (CDI) and [facility] Coding Staff appreciate your assistance in clarifying documentation. Please respond to the clarification below the line at the bottom and electronically sign. The CDI & [facility] Coding staff will review the response and follow-up if needed. Please note: Queries are made part of the Legal Health Record. If you have any questions, please contact the author of this message via ITS. Dr. Joey De La Torre 11/30 Surgical consult has patient's past medical history of dementia. In your H/P and subsequent progress notes patient alert and oriented x3 with benign forgetfulness. After study please render your opinion on the diagnosis of dementia. History/Risk Factors BPH, Hyperlipidemia, Former smoker Clinical Indicators: 75-year-old male who presented on 11/30 with abdominal pain and was ruled in for acute diverticulitis with perforation. 11/30 nursing neurological assessment found him to be alert and orientated x3 11/30 133/80 87 18 98.5 96 % RA 11/30 Labs: WBC 11.8, NA+ 136, Total bilirubin 1.5, COVID Negative Treatment: Aricept 10 MG PO Daily After study please render your opinion on the diagnosis of dementia: [ ] Dementia ruled out [ ] Dementia, treated (specify type) [ ] Other condition, please specify [ ] Unable to determine (Template Last Revised: October 2020) Dementia ruled out MTDD
[2020-12-03] MEDS: LACTOBACILLUS ACIDOPH & BULGAR 1 EACH PACKET PO SCH (14:09)
--- NOTE | 2020-12-03 15:09 | P.PN ---
Subjective Progress Note Date: 12/03/20 Principal diagnosis: Abdominal pain, diverticulitis with abscess This is a pleasant 75-year-old white male patient with a past medical history of hypertension, hyperlipidemia, and BPH who presented to the emergency room yesterday with abdominal pain. The patient states he started having diffuse abdominal pain on , which he thought was constipation. He then began to have fever and chills and worsening abdominal pain. He had a max temperature of 103 at home. The pain then began to localize down in his left lower abdomen. He started having multiple episodes of loose bowels, denies any blood in stool. He did report on and Monday he had some nausea with no vomiting. The patient believes he had a colonoscopy approximately 5 years ago for which he states he thought he had 1-2 per colon polyps and diverticulosis noted. He has had no other history of diverticulitis. As part of his workup in the emergency department a CT of the abdomen was completed which showed moderate inflammation in the left lower quadrant and upper pelvis. This may relate to acute mid sigmoid diverticulitis. A 2.8 cm fluid locule containing some air, possible small contained leak, is located along the anterior margin of the mid sigmoid colon and abuts and inflamed and thickened loop of small bowel. Moderate to severe regional enteritis is the alternative consideration. On today's evaluation the patient states his pain has improved greatly, is having loose stools. He is tolerating his clear liquid diet. Denies any fever or chills. He continues with his IV antibiotics. Surgery is increasing his diet to full liquid. Objective - Vital Signs Vital signs: Vital Signs Temp 98.1 F 12/03/20 07:37 Pulse 84 12/03/20 07:38 Resp 17 12/03/20 07:38 BP 120/70 12/03/20 07:37 Pulse Ox 94 L 12/03/20 07:37 Intake & Output 12/02/20 12/03/20 12/03/20 18:59 06:59 18:59 Intake Total 1350 Balance 1350 Intake: Intake, IV Titration 1350 Amount Lactated Ringers 1,000 ml 1250 @ 125 mls/hr IV .Q8H [facility] Rx#:[id number] Piperacillin-Tazobactam 3 100 .375 gm In Sodium Chloride 0.9% 100 ml @ 25 mls/hr IVPB Q8H [facility] Rx#: [id number] Other: Voiding Method Toilet - Exam General appearance: The patient is alert, oriented, appears in no acute distress. HET: Head is normocephalic and atraumatic. Conjunctiva pink. Sclera anicteric. Neck: Supple without lymphadenopathy. Abdomen: Soft, left lower quadrant tenderness improved, nondistended with bowel sounds. No guarding or rigidity. Extremities: Normal skin color and turgor. No pedal edema Skin: No rashes, no jaundice Neurological: No focal deficits. Alert and oriented 3. - Labs CBC & Chem 7: 12/03/20 10:47 12/01/20 06:11 Labs: Abnormal Lab Results - Last 24 Hours (Table) 12/03/20 Range/Units 10:47 WBC 11.1 H (3.8-10.6) k/uL Neutrophils # 8.8 H (1.3-7.7) k/uL Microbiology - Last 24 Hours (Table) 11/30/20 16:13 Blood Culture - Preliminary Blood No Growth after 48 hours Assessment and Plan (1) Abdominal pain Narrative/Plan: This is a 75-year-old gentleman who presented to the emergency department yesterday with complaints of severe abdominal pain that began on . He states the pain began diffuse throughout the abdomen, with feelings of constipation. He later had a bowel movement, followed by fever and chills. Pain then radiated down to the left lower abdomen and persisted. He states he had nausea, no vomiting. He denies any blood in his stool or blood per rectum. States his last colonoscopy was approximately 5 years ago, for which he believes he had polyps and diverticulosis. He has no history of diverticulitis. Found on CT of the abdomen moderate inflammation in the left lower quadrant and upper pelvis. This may relate to acute mid sigmoid diverticulitis. A 2.8 cm fluid locule containing some air, possible small contained leak, is located along the anterior margin of the mid sigmoid colon and abuts and inflamed and thickened loop of small bowel. Moderate to severe regional enteritis is the alternative consideration. Follow-up CT recommended if patient does not respond to conservative management. Wall thickening and surrounding fat stranding of the bladder dome, likely reactive inflammation. Correlate to exclude cystitis. The patient is currently on Zosyn, abdominal pain has improved. He denies any further nausea or vomiting. He is been afebrile. Surgery is on consult. We'll continue to keep nothing by mouth, broad-spectrum antibiotics, and possible repeat CT of the abdomen in 3-4 days. Patient will have repeat CT of the abdomen and pelvis tomorrow. Current Visit: Yes Status: Acute Code(s): R10.9 - UNSPECIFIED ABDOMINAL PAIN SNOMED Code(s): 49086684 (2) Diverticulitis of colon with perforation Narrative/Plan: Surgical service is on consult, conservative management at this time. Continue broad-spectrum antibiotics. Current Visit: Yes Status: Acute Code(s): K57.20 - DVTRCLI OF LG INT W PERFORATION AND ABSCESS W/O BLEEDING SNOMED Code(s): 2117143 Plan: 1. Symptomatic and supportive care 2. Full liquid diet 3. Continue IV antibiotics as ordered 4. Monitor labs closely 5. Appreciate recommendations from surgical services 6. Repeat CT of the abdomen ordered Thank you for this consultation, we will continue to follow Dr. Keeley Moy I agree with the dictator's note, documented as a scribe by Kaleigh Haddad.
[2020-12-03] MEDS: MULTIVITAMINS, THERA 1 EACH TAB PO SCH (18:05)
[2020-12-03] MEDS: ATORVASTATIN 80 MG TAB PO SCH (20:01)
[2020-12-03] MEDS: FINASTERIDE 5 MG TAB PO SCH (20:01)
[2020-12-03] MEDS: DOXAZOSIN 4 MG TAB PO SCH (20:01)
--- NOTE | 2020-12-03 22:15 | P.PN ---
Progress Note - Text Progress Note Date: 12/03/20 Chief Complaint: Abdominal pain History of presenting complaint: This is a very pleasant 75-year-old patient Dr. Hutton. Chronic stable medical conditions include BPH, hyperlipidemia, benign forgetfulness of them daily. Patient rather active. 4 days ago he finished the morning meeting is started noticing some abdominal discomfort. By late in the day he was not feeling well. Had a fever up to 103. Chills. Not feeling well. Fever broke the following day. He did decrease appetite. Abdominal symptoms progress. Continue to feel worse. Patient had no urinary symptoms. He did follow with Dr. Hutton's office will send him down for a computed tomography scan. Patient also had some loose stools. Admitted with acute sigmoid diverticulitis with acute perforation. Started on IV Zosyn IV fluids nothing by mouth. Today: Abdominal pain greatly improved. Some loose stools. No nausea vomiting. Tolerated clear liquid for breakfast. Up in a chair Review of systems: Was done for constitutional, cardiovascular, GI, pulmonary. relevant finding as above Active Medications Acetaminophen (Acetaminophen Tab 325 Mg Tab) 650 mg PO Q6HR PRN PRN Reason: Fever and/ or Mild Pain Last Admin: 12/03/20 11:53 Dose: 650 mg Documented by: Aspirin (Aspirin 81 Mg) 162 mg PO DAILY [facility] Last Admin: 12/03/20 08:41 Dose: Not Given Documented by: Atorvastatin Calcium (Atorvastatin 80 Mg Tab) 80 mg PO HS [facility] Last Admin: 12/03/20 20:01 Dose: 80 mg Documented by: Cholecalciferol (Cholecalciferol 25 Mcg (1000 Iu) Tablet) 125 mcg PO DAILY [facility] Last Admin: 12/03/20 08:41 Dose: Not Given Documented by: Clotrimazole (Clotrimazole 1% Cream 30 Gm Tube) 1 applic TOPICAL BID [facility] Last Admin: 12/03/20 20:01 Dose: Not Given Documented by: Donepezil HCl (Donepezil 10 Mg Tab) 10 mg PO DAILY [facility] Last Admin: 12/03/20 08:44 Dose: Not Given Documented by: Doxazosin Mesylate (Doxazosin 4 Mg Tab) 8 mg PO HS [facility] Last Admin: 12/03/20 20:01 Dose: 8 mg Documented by: Enoxaparin Sodium (Enoxaparin 40 Mg/0.4 Ml Syringe) 40 mg SQ DAILY [facility] Last Admin: 12/03/20 08:44 Dose: 40 mg Documented by: Finasteride (Finasteride 5 Mg Tab) 5 mg PO HS [facility] Last Admin: 12/03/20 20:01 Dose: 5 mg Documented by: Lactated Ringer's (Lactated Ringers) 1,000 mls @ 125 mls/hr IV .Q8H [facility] Last Admin: 12/03/20 14:11 Dose: 125 mls/hr Documented by: Piperacillin Sod/Tazobactam (Sod 3.375 gm/ Sodium Chloride) 100 mls @ 25 mls/hr IVPB Q8H [facility] Last Admin: 12/03/20 18:05 Dose: 25 mls/hr Documented by: Iopamidol (Iopamidol Contrast (Oral Use) Vial) 30 ml PO Q60M PRN PRN Reason: CT Scan Stop: 12/04/20 11:47 Lactobacillus Acidoph/Bulgaricus (Lactobacillus Acidoph & Bulgar 1 Each Packet) 1 each PO W/LUNCH [facility] Last Admin: 12/03/20 14:09 Dose: 1 each Documented by: Montelukast Sodium (Montelukast 10 Mg Tab) 10 mg PO DAILY [facility] Last Admin: 12/03/20 08:43 Dose: Not Given Documented by: Multivitamins (Multivitamins, Thera 1 Each Tab) 1 each PO AC-SUPPER [facility] Last Admin: 12/03/20 18:05 Dose: 1 each Documented by: Naloxone HCl (Naloxone 0.4 Mg/Ml 1 Ml Vial) 0.2 mg IV Q2M PRN PRN Reason: Opioid Reversal Pantoprazole Sodium (Pantoprazole 40 Mg/10 Ml Vial) 40 mg IVP DAILY [facility] Last Admin: 12/03/20 08:42 Dose: 40 mg Documented by: Propranolol HCl (Propranolol 40 Mg Tab) 40 mg PO AC-BID [facility] Last Admin: 12/03/20 18:05 Dose: 40 mg Documented by: Zinc Sulfate (Zinc Sulfate 220 Mg Cap) 220 mg PO DAILY [facility] Last Admin: 12/03/20 08:45 Dose: 220 mg Documented by: Past medical history to include: BPH, hyperlipidemia, benign forgetfulness of the elderly 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 Alcohol rarely. Family history: Reviewed, noncontributory to presentation Physical examination: VITAL SIGNS: 98.1, 84, 17, 1 20 x 70, 94% room air GENERAL: Sitting up in a chair, more comfortable. EYES: Pupils equal. Conjunctiva normal. HEENT: External appearance of nose and ears normal, oral cavity grossly normal. NECK: JVD not raised; masses not palpable. HEART: First and second heart sounds are normal; no edema. LUNGS: Respiratory rate normal; clear to auscultation. ABDOMEN: Soft, no tenderness, no guarding rigidity, liver spleen not palpable, no masses palpable. PSYCH: Alert and oriented x3; mood and affect normal. INVESTIGATIONS, reviewed in the clinical context: December 03: WBC 11.1 hemoglobin 14.4 December 02: WBC 12.4 hemoglobin 14.4 S1 72 December 01: WBC 12 hemoglobin 16 potassium 4.4 creatinine 0.8 WBC 11.8 hemoglobin 16.7 platelets 145 neutrophils 9.6 potassium 3.8 creatinine 0.89 Coronavirus [PCR]-not detected Computed tomography scan abdomen and pelvis with contrast: Descending and sigmoid colonic diverticulosis. Moderate inflammation noted within the left lower quadrant and upper pelvis. Crit is decreased inflammation noted on the mid sigmoid colon. 2.8 cm fluid no acute contains some air on that date her margin of the mid sigmoid colon sitting or inflamed and thickened loop of small bowel. Prostate again enlarged. Assessment and plan: -Acute sigmoid diverticulitis with localized perforation 2.8 cm.-/improvement Advanced to full liquids. General surgery . IV Zosyn and IV fluids. 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 Increase activity. Advance to full liquids.
[2020-12-04] MEDS: PIPERACILLIN-TAZOBACTAM 3.375 GM in SODIUM CHLORIDE 0.9% 100 ML IVPB SCH ×3 (02:26→18:30)
[2020-12-04] MEDS: LACTATED RINGERS 1,000 ML IV SCH ×3 (05:17→17:05)
[2020-12-04 05:57] LABS: Basophils % (A) 0 %; Eosinophils # (A) 0.2 k/uL (0-0.7); Eosinophils % (A) 2 %; HCT 41.7 % (39.0-53.0); HGB 13.4 gm/dL (13.0-17.5); Lymphocytes # (A) 1.3 k/uL (1.0-4.8); Lymphocytes % (A) 14 %; MCH 31.3 pg (25.0-35.0); MCHC 32.1 g/dL (31.0-37.0); MCV 97.4 fL (80.0-100.0); Mean Platelet Volume 7.2; Monocytes # (A) 0.7 k/uL (0-1.0); Monocytes % (A) 7 %; Neutrophils # (A) 7.4 k/uL (1.3-7.7); Neutrophils % (A) 76 %; Platelet Count 173 k/uL (150-450); RBC 4.28 m/uL (4.30-5.90); RDW 13.2 % (11.5-15.5); WBC 9.8 k/uL (3.8-10.6)
[2020-12-04] MEDS: IOPAMIDOL CONTRAST (ORAL USE) VIAL PO PRN ×2 (06:50→08:01)
[2020-12-04] MEDS: CLOTRIMAZOLE 1% CREAM 30 GM TUBE TOPICAL SCH ×2 (08:10→21:00)
[2020-12-04] MEDS: PROPRANOLOL 40 MG TAB PO SCH ×2 (10:06→17:08)
[2020-12-04] MEDS: ENOXAPARIN 40 MG/0.4 ML SYRINGE SQ SCH (10:07)
[2020-12-04] MEDS: ASPIRIN 81 MG PO SCH (10:08)
[2020-12-04] MEDS: CHOLECALCIFEROL 25 MCG (1000 IU) TABLET PO SCH (10:09)
[2020-12-04] MEDS: DONEPEZIL 10 MG TAB PO SCH (10:09)
[2020-12-04] MEDS: ZINC SULFATE 220 MG CAP PO SCH (10:09)
[2020-12-04] MEDS: MONTELUKAST 10 MG TAB PO SCH (10:09)
[2020-12-04] MEDS: PANTOPRAZOLE 40 MG/10 ML VIAL IVP SCH (10:32)
--- NOTE | 2020-12-04 10:41 | CT ---
EXAMINATION TYPE: CT abdomen pelvis w con DATE OF EXAM: 12/04/2020 COMPARISON: 11/30/2020 INDICATION: Abscess DLP: 1801 mGycm, Automated exposure control for dose reduction was used. CONTRAST: 100 mL of Isovue 300. Study performed with Oral Contrast TECHNIQUE: Axial images were obtained from above the diaphragm to the pubic rami in the axial plane a t 5 mm thick sections. Reconstructed images are reviewed on the computer in the coronal plane. FINDINGS: Limited CT sections are obtained the lung bases. The lung bases are clear. CT ABDOMEN: Liver: Normal Spleen: Normal Pancreas: Normal Adrenal glands: The adrenal glands are normal. Gallbladder: Not identified. Kidneys: No masses are evident. No hydronephrosis is present. No cysts are present. Delayed images were obtained through the kidneys, which remain unremarkable. Aorta: Vascular calcification is within the aorta. Inferior vena cava: Normal. CT PELVIS: No suspicious anterior abdominal wall abnormality is evident. There is diffuse bowel wall thickening through the sigmoid colon multiple diverticuli are present. So me adjacent inflammatory changes present. There is a small collection displacing a loop of small kody l within the pelvis. An air-fluid level is present. Abscess is present at this level measuring 4 cm i n diameter. This has increased in size over the interval. Small bowels with some inflamed wall are ad jacent. Percutaneous access is not available. No bowel obstruction is evident. Oral contrast extends to the rectum. There are loops of bowel with incomplete distention causing some limitation during a portion of the study. Appendix: Normal as visualized. Urinary bladder: Normal. Genitourinary structures: Prostate is mildly prominent. Osseous structures: No suspicious lytic or sclerotic lesions. IMPRESSIONS: 1. Increasing size abscess currently measuring 4 cm in the anterior pelvis adjacent to acute sigmoid diverticulitis.
--- NOTE | 2020-12-04 11:34 | P.PN ---
Subjective Progress Note Date: 12/04/20 CHIEF COMPLAINT: Abdominal pain HISTORY OF PRESENT ILLNESS: Surgical service is following in regards to acute diverticulitis with perforation and contained leak. Patient reports minimal abdominal pain. He has not been requiring pain medication. He is tolerating full liquid diet. He is having bowel movements. Denies any blood in stool. Denies any nausea or vomiting. Afebrile. WBC has normalized at 9.8 hemoglobin 13.4. Patient did have a computed tomography scan of the abdomen and pelvis santiago t shows an increasing size abscess currently measuring 4 cm in the anterior pelvis adjacent to acute sigmoid diverticulitis. Patient seen and examined with Dr. Guardado PHYSICAL EXAM: VITAL SIGNS: Reviewed. GENERAL: Well-developed in no acute distress. HEENT: No sclera icterus. Extraocular movements grossly intact. Moist buccal mucosa. Head is atraumatic, normocephalic. ABDOMEN: Soft. Nondistended. Left lower quadrant tenderness NEUROLOGIC: Alert and oriented. Cranial nerves II through XII grossly intact. ASSESSMENT: 1. Acute mid sigmoid diverticulitis with perforation and contained leak. With repeat CAT scan showing an increased size in the abscess measuring 4 cm 2. Abdominal pain PLAN: -Recommend continuing IV antibiotics over the weekend. We'll monitor patient closely will monitor patient closely for any increase in pain or worsening symptoms. At this time no plan for surgery. Patient has no pain and white count has normalized. However, if symptoms worsen patient may require surgery. -Continue full liquid diet -Continue IV antibiotics -Continue IV fluids -Continue to monitor patient closely -Lovenox for DVT prophylaxis -GI prophylaxis Protonix Physician Immigration Law Specialist note has been reviewed by physician. Signing provider agrees with the documented findings, assessment, and plan of care. Objective - Vital Signs Vital signs: Vital Signs Temp 98.6 F 12/04/20 07:59 Pulse 78 12/04/20 08:01 Resp 16 12/04/20 08:01 BP 104/65 12/04/20 07:59 Pulse Ox 93 L 12/04/20 07:59 Intake & Output 12/03/20 12/04/20 12/04/20 18:59 06:59 18:59 Intake Total 1100 1500 Balance 1100 1500 Intake: Intake, IV Titration 1100 1100 Amount Lactated Ringers 1,000 ml 1000 1000 @ 125 mls/hr IV .Q8H [facility] Rx#:[id number] Piperacillin-Tazobactam 3 100 100 .375 gm In Sodium Chloride 0.9% 100 ml @ 25 mls/hr IVPB Q8H [facility] Rx#: [id number] Oral 400 Other: Voiding Method Toilet # Voids 3 - Labs CBC & Chem 7: 12/04/20 05:09 12/01/20 06:11 Labs: Abnormal Lab Results - Last 24 Hours (Table) 12/04/20 Range/Units 05:09 RBC 4.28 L (4.30-5.90) m/uL Microbiology - Last 24 Hours (Table) 11/30/20 16:13 Blood Culture - Preliminary Blood No Growth after 72 hours
[2020-12-04] MEDS: LACTOBACILLUS ACIDOPH & BULGAR 1 EACH PACKET PO SCH (14:10)
--- NOTE | 2020-12-04 15:15 | P.PN ---
Subjective Progress Note Date: 12/04/20 Principal diagnosis: Abdominal pain, diverticulitis with abscess This is a pleasant 75-year-old white male patient with a past medical history of hypertension, hyperlipidemia, and BPH who presented to the emergency room yesterday with abdominal pain. The patient states he started having diffuse abdominal pain on , which he thought was constipation. He then began to have fever and chills and worsening abdominal pain. He had a max temperature of 103 at home. The pain then began to localize down in his left lower abdomen. He started having multiple episodes of loose bowels, denies any blood in stool. He did report on and Monday he had some nausea with no vomiting. The patient believes he had a colonoscopy approximately 5 years ago for which he states he thought he had 1-2 per colon polyps and diverticulosis noted. He has had no other history of diverticulitis. As part of his workup in the emergency department a CT of the abdomen was completed which showed moderate inflammation in the left lower quadrant and upper pelvis. This may relate to acute mid sigmoid diverticulitis. A 2.8 cm fluid locule containing some air, possible small contained leak, is located along the anterior margin of the mid sigmoid colon and abuts and inflamed and thickened loop of small bowel. Moderate to severe regional enteritis is the alternative consideration. He had a repeat CT of the abdomen this morning which showed an increase in the abscess to 4 cm. However patient states pain has improved significantly. Just mild discomfort with moving around. He is been afebrile, WBC 9.8. He denies any nausea or vomiting fevers or chills. 10 use on a full liquid diet and is tolerating well. Objective - Vital Signs Vital signs: Vital Signs Temp 98.6 F 12/04/20 07:59 Pulse 78 12/04/20 08:01 Resp 16 12/04/20 08:01 BP 104/65 12/04/20 07:59 Pulse Ox 93 L 12/04/20 07:59 Intake & Output 12/03/20 12/04/20 12/04/20 18:59 06:59 18:59 Intake Total 1100 1500 Balance 1100 1500 Intake: Intake, IV Titration 1100 1100 Amount Lactated Ringers 1,000 ml 1000 1000 @ 125 mls/hr IV .Q8H [facility] Rx#:[id number] Piperacillin-Tazobactam 3 100 100 .375 gm In Sodium Chloride 0.9% 100 ml @ 25 mls/hr IVPB Q8H [facility] Rx#: [id number] Oral 400 Other: Voiding Method Toilet # Voids 3 - Exam General appearance: The patient is alert, oriented, appears in no acute distress. HET: Head is normocephalic and atraumatic. Conjunctiva pink. Sclera anicteric. Neck: Supple without lymphadenopathy. Abdomen: Soft, left lower quadrant tenderness improved, nondistended with bowel sounds. No guarding or rigidity. Extremities: Normal skin color and turgor. No pedal edema Skin: No rashes, no jaundice Neurological: No focal deficits. Alert and oriented 3. - Labs CBC & Chem 7: 12/04/20 05:09 12/01/20 06:11 Labs: Abnormal Lab Results - Last 24 Hours (Table) 12/03/20 12/04/20 Range/Units 10:47 05:09 WBC 11.1 H (3.8-10.6) k/uL RBC 4.28 L (4.30-5.90) m/uL Neutrophils # 8.8 H (1.3-7.7) k/uL Microbiology - Last 24 Hours (Table) 11/30/20 16:13 Blood Culture - Preliminary Blood No Growth after 72 hours Assessment and Plan (1) Abdominal pain Narrative/Plan: This is a 75-year-old gentleman who presented to the emergency department yesterday with complaints of severe abdominal pain that began on . He states the pain began diffuse throughout the abdomen, with feelings of constipation. He later had a bowel movement, followed by fever and chills. Pain then radiated down to the left lower abdomen and persisted. He states he had nausea, no vomiting. He denies any blood in his stool or blood per rectum. States his last colonoscopy was approximately 5 years ago, for which he believes he had polyps and diverticulosis. He has no history of diverticulitis. Found on CT of the abdomen moderate inflammation in the left lower quadrant and upper pelvis. This may relate to acute mid sigmoid diverticulitis. A 2.8 cm fluid locule containing some air, possible small contained leak, is located along the anterior margin of the mid sigmoid colon and abuts and inflamed and thickened loop of small bowel. Moderate to severe regional enteritis is the alternative consideration. Follow-up CT recommended if patient does not respond to conservative management. Wall thickening and surrounding fat stranding of the bladder dome, likely reactive inflammation. Correlate to exclude cystitis. The patient is currently on Zosyn, abdominal pain has improved. He denies any further nausea or vomiting. He is been afebrile. Surgery is on consult. We'll continue to keep nothing by mouth, broad-spectrum antibiotics, and possible repeat CT of the abdomen in 3-4 days. Patient will have repeat CT of the abdomen and pelvis tomorrow. Current Visit: Yes Status: Acute Code(s): R10.9 - UNSPECIFIED ABDOMINAL PAIN SNOMED Code(s): 62283642 (2) Diverticulitis of colon with perforation Narrative/Plan: Surgical service is on consult, conservative management at this time. Continue broad-spectrum antibiotics. Current Visit: Yes Status: Acute Code(s): K57.20 - DVTRCLI OF LG INT W PERFORATION AND ABSCESS W/O BLEEDING SNOMED Code(s): 5205143 Plan: 1. Symptomatic and supportive care 2. Full liquid diet, advance per surgical service recommendation 3. Continue IV antibiotics as ordered 4. Monitor labs closely 5. Gen. surgery on consult, their recommendations are to continue to monitor patient's symptoms and continue IV antibiotics through the weekend 6. Repeat CT of the abdomen viewed Thank you for this consultation, we will continue to follow Dr. Keeley Moy I agree with the dictator's note, documented as a scribe by Kaleigh Haddad.
[2020-12-04] MEDS: MULTIVITAMINS, THERA 1 EACH TAB PO SCH (17:07)
[2020-12-04] MEDS: DOXAZOSIN 4 MG TAB PO SCH (21:00)
[2020-12-04] MEDS: FINASTERIDE 5 MG TAB PO SCH (21:00)
[2020-12-04] MEDS: ATORVASTATIN 80 MG TAB PO SCH (21:00)
--- NOTE | 2020-12-04 23:44 | P.PN ---
Progress Note - Text Progress Note Date: 12/04/20 Chief Complaint: Abdominal pain History of presenting complaint: This is a very pleasant 75-year-old patient Dr. Hutton. Chronic stable medical conditions include BPH, hyperlipidemia, benign forgetfulness of them daily. Patient rather active. 4 days ago he finished the morning meeting is started noticing some abdominal discomfort. By late in the day he was not feeling well. Had a fever up to 103. Chills. Not feeling well. Fever broke the following day. He did decrease appetite. Abdominal symptoms progress. Continue to feel worse. Patient had no urinary symptoms. He did follow with Dr. Hutton's office will send him down for a computed tomography scan. Patient also had some loose stools. Admitted with acute sigmoid diverticulitis with acute perforation. Started on IV Zosyn IV fluids nothing by mouth. Today: Abdominal pain much improved. One or 2 loose bowels. No nausea vomiting. Computed tomography scan from this morning showing increasing abscess. Review of systems: Was done for constitutional, cardiovascular, GI, pulmonary. relevant finding as above Active Medications Acetaminophen (Acetaminophen Tab 325 Mg Tab) 650 mg PO Q6HR PRN PRN Reason: Fever and/ or Mild Pain Last Admin: 12/03/20 11:53 Dose: 650 mg Documented by: Aspirin (Aspirin 81 Mg) 162 mg PO DAILY [facility] Last Admin: 12/04/20 10:08 Dose: Not Given Documented by: Atorvastatin Calcium (Atorvastatin 80 Mg Tab) 80 mg PO HS [facility] Last Admin: 12/04/20 21:00 Dose: 80 mg Documented by: Cholecalciferol (Cholecalciferol 25 Mcg (1000 Iu) Tablet) 125 mcg PO DAILY [facility] Last Admin: 12/04/20 10:09 Dose: Not Given Documented by: Clotrimazole (Clotrimazole 1% Cream 30 Gm Tube) 1 applic TOPICAL BID [facility] Last Admin: 12/04/20 21:00 Dose: Not Given Documented by: Donepezil HCl (Donepezil 10 Mg Tab) 10 mg PO DAILY [facility] Last Admin: 12/04/20 10:09 Dose: Not Given Documented by: Doxazosin Mesylate (Doxazosin 4 Mg Tab) 8 mg PO [facility] Last Admin: 12/04/20 21:00 Dose: 8 mg Documented by: Enoxaparin Sodium (Enoxaparin 40 Mg/0.4 Ml Syringe) 40 mg SQ DAILY [facility] Last Admin: 12/04/20 10:07 Dose: 40 mg Documented by: Finasteride (Finasteride 5 Mg Tab) 5 mg PO HS [facility] Last Admin: 12/04/20 21:00 Dose: 5 mg Documented by: Lactated Ringer's (Lactated Ringers) 1,000 mls @ 125 mls/hr IV .Q8H [facility] Last Admin: 12/04/20 17:05 Dose: 125 mls/hr Documented by: Piperacillin Sod/Tazobactam (Sod 3.375 gm/ Sodium Chloride) 100 mls @ 25 mls/hr IVPB Q8H [facility] Last Admin: 12/04/20 18:30 Dose: 25 mls/hr Documented by: Lactobacillus Acidoph/Bulgaricus (Lactobacillus Acidoph & Bulgar 1 Each Packet) 1 each PO W/LUNCH [facility] Last Admin: 12/04/20 14:10 Dose: 1 each Documented by: Montelukast Sodium (Montelukast 10 Mg Tab) 10 mg PO DAILY [facility] Last Admin: 12/04/20 10:09 Dose: Not Given Documented by: Multivitamins (Multivitamins, Thera 1 Each Tab) 1 each PO AC-SUPPER [facility] Last Admin: 12/04/20 17:07 Dose: 1 each Documented by: Naloxone HCl (Naloxone 0.4 Mg/Ml 1 Ml Vial) 0.2 mg IV Q2M PRN PRN Reason: Opioid Reversal Pantoprazole Sodium (Pantoprazole 40 Mg/10 Ml Vial) 40 mg IVP DAILY [facility] Last Admin: 12/04/20 10:32 Dose: 40 mg Documented by: Propranolol HCl (Propranolol 40 Mg Tab) 40 mg PO AC-BID [facility] Last Admin: 12/04/20 17:08 Dose: 40 mg Documented by: Zinc Sulfate (Zinc Sulfate 220 Mg Cap) 220 mg PO DAILY [facility] Last Admin: 12/04/20 10:09 Dose: Not Given Documented by: Past medical history to include: BPH, hyperlipidemia, benign forgetfulness of the elderly 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 Alcohol rarely. Family history: Reviewed, noncontributory to presentation Physical examination: VITAL SIGNS: 98.6, 78, 16, 104 4/65, 93% room air GENERAL: Sitting up in a chair, comfortable. EYES: Pupils equal. Conjunctiva normal. HEENT: External appearance of nose and ears normal, oral cavity grossly normal. NECK: JVD not raised; masses not palpable. HEART: First and second heart sounds are normal; no edema. LUNGS: Respiratory rate normal; clear to auscultation. ABDOMEN: Soft, no tenderness, no guarding rigidity, liver spleen not palpable, no masses palpable. PSYCH: Alert and oriented x3; mood and affect normal. INVESTIGATIONS, reviewed in the clinical context: December 04: WBC 9.[address] abdomen pelvis: Increase excessive abscess December 03: WBC 11.1 hemoglobin 14.4 December 02: WBC 12.4 hemoglobin 14.4 S1 72 December 01: WBC 12 hemoglobin 16 potassium 4.4 creatinine 0.8 WBC 11.8 hemoglobin 16.7 platelets 145 neutrophils 9.6 potassium 3.8 creatinine 0.89 Coronavirus [PCR]-not detected Computed tomography scan abdomen and pelvis with contrast: Descending and sigmoid colonic diverticulosis. Moderate inflammation noted within the left lower quadrant and upper pelvis. Crit is decreased inflammation noted on the mid sigmoid colon. 2.8 cm fluid no acute contains some air on that date her margin of the mid sigmoid colon sitting or inflamed and thickened loop of small bowel. Prostate again enlarged. Assessment and plan: -Acute sigmoid diverticulitis with localized perforation 2.8 cm.-/. Repeat computed tomography scan on December 04: Showing increasing size of abscess Continue IV Zosyn and IV fluids. Dr. Guardado team informed. 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 Continue with IV Zosyn treatment per surgery.
[2020-12-05] MEDS: PIPERACILLIN-TAZOBACTAM 3.375 GM in SODIUM CHLORIDE 0.9% 100 ML IVPB SCH ×3 (02:17→17:47)
[2020-12-05] MEDS: LACTATED RINGERS 1,000 ML IV SCH ×2 (03:49→17:51)
[2020-12-05 06:40] LABS: Basophils % (A) 0 %; Eosinophils # (A) 0.1 k/uL (0-0.7); Eosinophils % (A) 1 %; HCT 42.3 % (39.0-53.0); HGB 14.4 gm/dL (13.0-17.5); Lymphocytes # (A) 1.3 k/uL (1.0-4.8); Lymphocytes % (A) 13 %; MCH 32.3 pg (25.0-35.0); MCV 95.2 fL (80.0-100.0); Monocytes # (A) 0.6 k/uL (0-1.0); Monocytes % (A) 6 %; Neutrophils # (A) 8.1 k/uL (1.3-7.7); Neutrophils % (A) 79 %; Platelet Count 200 k/uL (150-450); RBC 4.44 m/uL (4.30-5.90); RDW 12.5 % (11.5-15.5); WBC 10.2 k/uL (3.8-10.6)
[2020-12-05] MEDS: PANTOPRAZOLE 40 MG/10 ML VIAL IVP SCH (09:56)
[2020-12-05] MEDS: PROPRANOLOL 40 MG TAB PO SCH ×2 (10:01→17:47)
[2020-12-05] MEDS: ENOXAPARIN 40 MG/0.4 ML SYRINGE SQ SCH (10:01)
[2020-12-05] MEDS: CLOTRIMAZOLE 1% CREAM 30 GM TUBE TOPICAL SCH ×2 (10:10→19:38)
[2020-12-05] MEDS: CHOLECALCIFEROL 25 MCG (1000 IU) TABLET PO SCH (10:10)
[2020-12-05] MEDS: ASPIRIN 81 MG PO SCH (10:10)
[2020-12-05] MEDS: MONTELUKAST 10 MG TAB PO SCH (10:11)
[2020-12-05] MEDS: DONEPEZIL 10 MG TAB PO SCH (10:11)
[2020-12-05] MEDS: ZINC SULFATE 220 MG CAP PO SCH (10:12)
--- NOTE | 2020-12-05 11:21 | PN ---
PROGRESS NOTE DATE OF SERVICE: 12/05/2020 INTERVAL HISTORY: Patient is a 75-year-old pleasant white male admitted to the hospital with acute sigmoid diverticulitis complicated with small peridiverticular abscess, for which he is on broad-spectrum antibiotics. He had a repeat CAT scan yesterday that showed slightly enlargement of the abscess. He continues to remain on Zosyn. He is feeling well. Last night he had some indigestion, but no abdominal pain. No nausea, no vomiting. He had about 3 loose bowel movements yesterday, none this morning. PHYSICAL EXAMINATION: GENERAL: Appears comfortable. No apparent distress. VITAL SIGNS: Stable. Blood pressure 113/69, pulse rate 84, temperature 98.2. HEENT: Examination unremarkable. Conjunctivae are pink. Sclerae anicteric. Oral cavity no lesions. NECK: No JVD or lymph node enlargement. CHEST: Clear to auscultation. HEART: Regular rate and rhythm. ABDOMEN: Soft, bowel sounds are positive. Mild tenderness in the left lower quadrant area. The rest of the abdomen is benign. EXTREMITIES: No pedal edema noted. NEURO: She is alert and oriented x3. No focal deficits. LABS: From today WBC 10.2, hemoglobin 14, platelets 200, neutrophils 8.1. IMPRESSION: 1. Acute sigmoid diverticulitis complicated with peridiverticular abscess. Repeat CAT scan yesterday showed slight enlargement in the abscess to 4 cm. The patient remains on Zosyn and clinically doing well. Leukocytosis has resolved but has mild increase in neutrophils. 2. Mild gastroesophageal reflux disease, probably related to antibiotics. 3. History of hypertension and hyperlipidemia. RECOMMENDATIONS: 1. Continue with broad-spectrum antibiotics. 2. Continue with full liquid diet. 3. Monitor labs closely. We will follow with you. Thank you for this consultation. MMODL / IJN: [id number] /
[2020-12-05] MEDS: LACTOBACILLUS ACIDOPH & BULGAR 1 EACH PACKET PO SCH (14:42)
--- NOTE | 2020-12-05 16:29 | P.PN ---
Subjective Progress Note Date: 12/05/20 Patient reports having a challenging night with abdominal cramps following his CT scan but this morning his abdominal pain has improved. He is tolerating liquid diet. ABDOMEN: No peritonitis STUDIES: CT reviewed ASSESSMENT: 1. Localized peritonitis PLAN: 1. Recommend ID consultation for antibiotic management 2. Continue IV antibiotics. Objective - Vital Signs Vital signs: Vital Signs Temp 97.7 F 12/05/20 11:55 Pulse 70 12/05/20 11:55 Resp 16 12/05/20 11:55 BP 94/56 12/05/20 11:55 Pulse Ox 98 12/05/20 11:55 Intake & Output 12/04/20 12/05/20 12/05/20 18:59 06:59 18:59 Intake Total 850 1240 Balance 850 1240 Intake: Intake, IV Titration 850 900 Amount Lactated Ringers 1,000 ml 750 600 @ 60 mls/hr IV .[id number] [facility] Rx#:[id number] Piperacillin-Tazobactam 3 100 300 .375 gm In Sodium Chloride 0.9% 100 ml @ 25 mls/hr IVPB Q8H [facility] Rx#: [id number] Oral 340 Other: # Voids 4 3 - Labs CBC & Chem 7: 12/05/20 05:44 12/01/20 06:11 Labs: Abnormal Lab Results - Last 24 Hours (Table) 12/05/20 Range/Units 05:44 Neutrophils # 8.1 H (1.3-7.7) k/uL Microbiology - Last 24 Hours (Table) 11/30/20 16:13 Blood Culture - Preliminary Blood No Growth after 96 hours
[2020-12-05] MEDS: MULTIVITAMINS, THERA 1 EACH TAB PO SCH (17:47)
[2020-12-05] MEDS: ACETAMINOPHEN TAB 325 MG TAB PO PRN (17:49)
[2020-12-05] MEDS: ATORVASTATIN 80 MG TAB PO SCH (19:48)
[2020-12-05] MEDS: FINASTERIDE 5 MG TAB PO SCH (21:21)
[2020-12-05] MEDS: DOXAZOSIN 4 MG TAB PO SCH (21:21)
--- NOTE | 2020-12-05 23:18 | P.PN ---
Progress Note - Text Progress Note Date: 12/05/20 Chief Complaint: Abdominal pain History of presenting complaint: This is a very pleasant 75-year-old patient Dr. Hutton. Chronic stable medical conditions include BPH, hyperlipidemia, benign forgetfulness of them daily. Patient rather active. 4 days ago he finished the morning meeting is started noticing some abdominal discomfort. By late in the day he was not feeling well. Had a fever up to 103. Chills. Not feeling well. Fever broke the following day. He did decrease appetite. Abdominal symptoms progress. Continue to feel worse. Patient had no urinary symptoms. He did follow with Dr. Hutton's office will send him down for a computed tomography scan. Patient also had some loose stools. Admitted with acute sigmoid diverticulitis with acute perforation. Started on IV Zosyn IV fluids nothing by mouth. Today: Patient about of abdominal cramping last night. Somewhat significant. Better this morning. Has been up to the bathroom. Review of systems: Was done for constitutional, cardiovascular, GI, pulmonary. relevant finding as above Active Medications Acetaminophen (Acetaminophen Tab 325 Mg Tab) 650 mg PO Q6HR PRN PRN Reason: Fever and/ or Mild Pain Last Admin: 12/05/20 17:49 Dose: 650 mg Documented by: Aspirin (Aspirin 81 Mg) 162 mg PO DAILY [facility] [place] Last Admin: 12/05/20 10:10 Dose: Not Given Documented by: Atorvastatin Calcium (Atorvastatin 80 Mg Tab) 80 mg PO HS [facility] [place] Last Admin: 12/05/20 19:48 Dose: 80 mg Documented by: Cholecalciferol (Cholecalciferol 25 Mcg (1000 Iu) Tablet) 125 mcg PO DAILY [facility] [place] Last Admin: 12/05/20 10:10 Dose: Not Given Documented by: Clotrimazole (Clotrimazole 1% Cream 30 Gm Tube) 1 applic TOPICAL BID [facility] [place] Last Admin: 12/05/20 19:38 Dose: Not Given Documented by: Donepezil HCl (Donepezil 10 Mg Tab) 10 mg PO DAILY [facility] [place] Last Admin: 12/05/20 10:11 Dose: Not Given Documented by: Doxazosin Mesylate (Doxazosin 4 Mg Tab) 8 mg PO HS [facility] [place] Last Admin: 12/05/20 21:21 Dose: 8 mg Documented by: Enoxaparin Sodium (Enoxaparin 40 Mg/0.4 Ml Syringe) 40 mg SQ DAILY [facility] [place] Last Admin: 12/05/20 10:01 Dose: 40 mg Documented by: Finasteride (Finasteride 5 Mg Tab) 5 mg PO HS [facility] [place] Last Admin: 12/05/20 21:21 Dose: 5 mg Documented by: Lactated Ringer's (Lactated Ringers) 1,000 mls @ 60 mls/hr IV .[id number] [facility] [place] Last Admin: 12/05/20 17:51 Dose: 60 mls/hr Documented by: Piperacillin Sod/Tazobactam (Sod 3.375 gm/ Sodium Chloride) 100 mls @ 25 mls/hr IVPB Q8H [facility] [place] Last Admin: 12/05/20 17:47 Dose: 25 mls/hr Documented by: Lactobacillus Acidoph/Bulgaricus (Lactobacillus Acidoph & Bulgar 1 Each Packet) 1 each PO W/LUNCH [facility] [place] Last Admin: 12/05/20 14:42 Dose: 1 each Documented by: Montelukast Sodium (Montelukast 10 Mg Tab) 10 mg PO DAILY [facility] [place] Last Admin: 12/05/20 10:11 Dose: Not Given Documented by: Multivitamins (Multivitamins, Thera 1 Each Tab) 1 each PO AC-SUPPER [facility] [place] Last Admin: 12/05/20 17:47 Dose: 1 each Documented by: Naloxone HCl (Naloxone 0.4 Mg/Ml 1 Ml Vial) 0.2 mg IV Q2M PRN PRN Reason: Opioid Reversal Pantoprazole Sodium (Pantoprazole 40 Mg/10 Ml Vial) 40 mg IVP DAILY [facility] [place] Last Admin: 12/05/20 09:56 Dose: 40 mg Documented by: Propranolol HCl (Propranolol 40 Mg Tab) 40 mg PO AC-BID [facility] [place] Last Admin: 12/05/20 17:47 Dose: 40 mg Documented by: Zinc Sulfate (Zinc Sulfate 220 Mg Cap) 220 mg PO DAILY [facility] [place] Last Admin: 12/05/20 10:12 Dose: Not Given Documented by: Past medical history to include: BPH, hyperlipidemia, benign forgetfulness of the elderly Social history: 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 Ex-smoker. Alcohol rarely. Family history: Reviewed, noncontributory to presentation Physical examination: VITAL SIGNS: 97.7, 70, 16, 94 x 56, 98% room air GENERAL: Sitting up in a chair, comfortable. EYES: Pupils equal. Conjunctiva normal. HEENT: External appearance of nose and ears normal, oral cavity grossly normal. NECK: JVD not raised; masses not palpable. HEART: First and second heart sounds are normal; no edema. LUNGS: Respiratory rate normal; clear to auscultation. ABDOMEN: Soft, mild left lower quadrant tenderness, no guarding rigidity, liver spleen not palpable, no masses palpable. PSYCH: Alert and oriented x3; mood and affect normal. INVESTIGATIONS, reviewed in the clinical context: December 05: Obesity 10.2 pro-calcitonin 0.07 December 04: WBC 9.[address] abdomen pelvis: Increase excessive abscess December 03: WBC 11.1 hemoglobin 14.4 December 02: WBC 12.4 hemoglobin 14.4 S1 72 December 01: WBC 12 hemoglobin 16 potassium 4.4 creatinine 0.8 WBC 11.8 hemoglobin 16.7 platelets 145 neutrophils 9.6 potassium 3.8 creatinine 0.89 Coronavirus [PCR]-not detected Computed tomography scan abdomen and pelvis with contrast: Descending and sigmoid colonic diverticulosis. Moderate inflammation noted within the left lower quadrant and upper pelvis. Crit is decreased inflammation noted on the mid sigmoid colon. 2.8 cm fluid no acute contains some air on that date her margin of the mid sigmoid colon sitting or inflamed and thickened loop of small bowel. Prostate again enlarged. Assessment and plan: -Acute sigmoid diverticulitis with localized perforation 2.8 cm.-/. Repeat computed tomography scan on December 04: Showing increasing size of abscess Continue IV Zosyn and IV fluids. Dr. Guardado team informed. 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 Possibly repeat computed tomography scan on Monday. D1 for liquid diet.
[2020-12-06] MEDS: PIPERACILLIN-TAZOBACTAM 3.375 GM in SODIUM CHLORIDE 0.9% 100 ML IVPB SCH ×3 (02:00→17:39)
[2020-12-06] MEDS: CHOLECALCIFEROL 25 MCG (1000 IU) TABLET PO SCH (08:37)
[2020-12-06] MEDS: MONTELUKAST 10 MG TAB PO SCH (08:37)
[2020-12-06] MEDS: PANTOPRAZOLE 40 MG/10 ML VIAL IVP SCH (08:37)
[2020-12-06] MEDS: ASPIRIN 81 MG PO SCH (08:37)
[2020-12-06] MEDS: DONEPEZIL 10 MG TAB PO SCH (08:37)
[2020-12-06] MEDS: ZINC SULFATE 220 MG CAP PO SCH (08:37)
[2020-12-06] MEDS: ENOXAPARIN 40 MG/0.4 ML SYRINGE SQ SCH (08:38)
[2020-12-06] MEDS: PROPRANOLOL 40 MG TAB PO SCH ×2 (08:38→17:38)
--- NOTE | 2020-12-06 10:14 | PN ---
PROGRESS NOTE DATE OF SERVICE: 12/06/2020 INTERVAL HISTORY: The patient is a 75-year-old pleasant white male admitted to the hospital with a sigmoid diverticulitis complicated with a peridiverticular abscess, on broad-spectrum antibiotics. He continues to do well. He reports his abdominal pain has significantly improved. No nausea, vomiting. Had 2 bowel movements yesterday. Tolerating full liquid diet well. PHYSICAL EXAMINATION: GENERAL: Appears comfortable. VITAL SIGNS: Stable. Blood pressure 118/70, pulse rate 68, temperature 98.2. HEENT: Examination unremarkable. Conjunctivae are pink. Sclerae anicteric. Oral cavity no lesions. NECK: No JVD or lymph node enlargement. CHEST: Clear to auscultation. HEART: Regular rate and rhythm. ABDOMEN: Soft. There was very minimal tenderness in the left lower quadrant area. The rest of the abdomen was benign. EXTREMITIES: No pedal edema. NEURO: She is alert and oriented x3. No focal deficits. LABS: WBC 10.2, hemoglobin 14.4, platelets normal. The basic metabolic panel was not done. IMPRESSION: Acute sigmoid diverticulitis complicated with a peridiverticular abscess. The patient on broad-spectrum antibiotics day #5 and he is doing significantly better. Symptoms have improved. Abdominal pain almost resolved. Last CT scan showed a 4 cm abscess, which was done 2 days ago. RECOMMENDATIONS: 1. Continue with broad-spectrum antibiotics. 2. Patient is requesting for an ID consult which can be obtained. 3. If he continues to do well, he can be discharged home tomorrow with outpatient antibiotics for 2 weeks and then consider an outpatient CT scan of the abdomen. Thank you for this consultation. MMODL / IJN: [id number] /
[2020-12-06] MEDS: CLOTRIMAZOLE 1% CREAM 30 GM TUBE TOPICAL SCH ×2 (11:32→20:13)
[2020-12-06] MEDS: LACTOBACILLUS ACIDOPH & BULGAR 1 EACH PACKET PO SCH (12:09)
[2020-12-06] MEDS ORDERED: IOPAMIDOL CONTRAST (ORAL USE) VIAL PO PRN (12:12)
[2020-12-06] MEDS: LACTATED RINGERS 1,000 ML IV SCH (15:16)
--- NOTE | 2020-12-06 15:16 | P.PN ---
Subjective Progress Note Date: 12/06/20 He reports his abdominal pain is tolerable and has improved in the last 2 days. No nausea. He is having now formed bowel movements which is new since admission. He is concerned about his WBC count. He reports being seen by the infectious disease specialist. GEN: Non-toxic in appearance. ABDOMEN: No peritonitis STUDIES: CT reviewed ASSESSMENT: 1. Localized peritonitis PLAN: 1. Will obtain CBC 2. CT scan re-ordered per primary team otherwise, he is clinically improving. 3. Antibiotic management per infectious disease. 4. Recommend dietary consult for diverticulitis. Objective - Vital Signs Vital signs: Vital Signs Temp 98.2 F 12/06/20 11:56 Pulse 67 12/06/20 11:56 Resp 20 12/06/20 11:56 BP 100/61 12/06/20 11:56 Pulse Ox 95 12/06/20 11:56 Intake & Output 12/05/20 12/06/20 12/06/20 18:59 06:59 18:59 Intake Total 100 Balance 100 Intake: Intake, IV Titration 100 Amount Piperacillin-Tazobactam 3 100 .375 gm In Sodium Chloride 0.9% 100 ml @ 25 mls/hr IVPB Q8H [facility] Rx#: [id number] Other: Voiding Method Toilet # Voids 1 - Labs CBC & Chem 7: 12/05/20 05:44 12/01/20 06:11 Labs: Abnormal Lab Results - Last 24 Hours (Table) 12/06/20 Range/Units 04:56 ESR 29 H (0-20) mm/Hr Microbiology - Last 24 Hours (Table) 11/30/20 16:13 Blood Culture - Preliminary Blood No Growth after 120 hours
[2020-12-06 16:22] LABS: Basophils # (A) 0.1 k/uL (0-0.2); Basophils % (A) 1 %; Eosinophils # (A) 0.1 k/uL (0-0.7); Eosinophils % (A) 1 %; HCT 41.7 % (39.0-53.0); Lymphocytes # (A) 1.6 k/uL (1.0-4.8); Lymphocytes % (A) 14 %; MCH 31.9 pg (25.0-35.0); MCHC 33.4 g/dL (31.0-37.0); MCV 95.3 fL (80.0-100.0); Mean Platelet Volume 7.2; Monocytes # (A) 0.6 k/uL (0-1.0); Monocytes % (A) 5 %; Neutrophils # (A) 9.1 k/uL (1.3-7.7); Neutrophils % (A) 79 %; Platelet Count 210 k/uL (150-450); RBC 4.38 m/uL (4.30-5.90); RDW 12.4 % (11.5-15.5); WBC 11.6 k/uL (3.8-10.6)
[2020-12-06] MEDS: MULTIVITAMINS, THERA 1 EACH TAB PO SCH (17:38)
--- NOTE | 2020-12-06 19:30 | CONS ---
CONSULTATION DATE OF SERVICE: 12/06/2020 REASON FOR CONSULTATION: Diverticulitis with an abscess. HISTORY OF PRESENT ILLNESS: The patient is a 75-year-old male, otherwise healthy, presented to [facility] ER about a week ago on November 30, 2020 for evaluation of diffuse lower abdominal pain. The patient's symptoms started on that is 4 days prior to presentation to the hospital. The patient describes the pain to be more of a diffuse in the lower abdominal area with intensity that has gradually increased to almost 10/10 in severity, some associated nausea but no vomiting and the patient is complaining of constipation associated with it. The patient mentioned over the weekend he tried to drink only liquids and was able to have a bowel movement with some relief of his pain. The patient went to see his primary care physician on November 30. The patient was noticed to be tender in the lower abdominal area. Patient advised to go to the ER for a STAT CT. CT was completed and shows evidence of diverticulitis with 2.8 cm fluid containing some air concerning for an abscess. The patient has been admitted to the hospital and has been treated with IV Zosyn in addition to IV fluids. The patient did have a repeat CT scan completed on December 04 which did shows the abscess has slightly increased in size to 4 cm acute sigmoid diverticulitis. The patient has been continued on the Zosyn. Infectious Disease was consulted per patient request for further evaluation. The patient did have not have any fever during this admission. The patient did have a white count of 12.4 on admission that has subsequently normalized and no CT scan will be done today. He did have blood culture, which has been negative so far. REVIEW OF SYSTEMS: Positive points have been mentioned in HPI. Rest of the systems are negative. PAST MEDICAL HISTORY: No major illnesses. PAST SURGICAL HISTORY: Hernia repair. SOCIAL HISTORY: Remote history of smoking. Rarely drinks. No drug use. FAMILY HISTORY: No pertinent findings noticed. ALLERGIES: No known drug allergies. MEDICATIONS: The patient is currently on Zosyn 3.375 g q.8 hours, Inderal, zinc sulfate, Protonix, Narcan, Theragran, Singulair, Lactinex, Lovenox, Cardura, Aricept, Lipitor, aspirin and Tylenol. PHYSICAL EXAMINATION: Blood pressure 100/61 with a pulse of 67. Temperature 98.2. He is 95% on room air. General description: The patient is an elderly male up in the chair in no distress. No tachypnea or accessory muscles of respiration use. HEENT: Examination shows no pallor or scleral icterus. Oral mucous membranes dry. NECK: Trachea central. No thyromegaly. LUNGS: Unlabored breathing, clear to auscultation anteriorly. No wheeze or crackles. Heart: S1, S2. Regular rate and rhythm. ABDOMEN: Soft, no tenderness. No guarding. No rigidity. EXTREMITIES: No edema of the feet. SKIN examination: No rash or mass palpable. NEUROLOGICAL: Patient is awake, alert, oriented x3. Mood and affect normal. LABS: White count normal at 10.2 as of yesterday. Sedimentation rate of 29, BUN of 18, creatinine 0.8. CT report mentioned above. DIAGNOSTIC IMPRESSION AND PLAN: Patient with acute sigmoid diverticulitis complicated with evidence of perforation and small abscess. This patient has been treated with Zosyn. However, the patient did have slight worsening of his abscess as size has increased. However, clinically the patient's abdominal pain has improved and his white count has normalized with a question of possible failure of medical therapy. PLAN: 1. Will wait for the repeat CT scan that has been ordered for tomorrow. 2. The patient may benefit from a CT-guided drainage of this abscess with fluid sent for the culture. Other option will be IV antibiotic therapy to combat his infection followed by surgical intervention so the patient can avoid a colostomy. We will discuss further with surgery. Thank you for this consultation. Will follow this patient along with you. MMODL / IJN: [id number] /
[2020-12-06] MEDS: ATORVASTATIN 80 MG TAB PO SCH (20:11)
[2020-12-06] MEDS: FINASTERIDE 5 MG TAB PO SCH (20:12)
[2020-12-06] MEDS: DOXAZOSIN 4 MG TAB PO SCH (20:12)
--- NOTE | 2020-12-06 22:58 | P.PN ---
Progress Note - Text Progress Note Date: 12/06/20 Chief Complaint: Abdominal pain History of presenting complaint: This is a very pleasant 75-year-old patient Dr. Hutton. Chronic stable medical conditions include BPH, hyperlipidemia, benign forgetfulness of them daily. Patient rather active. 4 days ago he finished the morning meeting is started noticing some abdominal discomfort. By late in the day he was not feeling well. Had a fever up to 103. Chills. Not feeling well. Fever broke the following day. He did decrease appetite. Abdominal symptoms progress. Continue to feel worse. Patient had no urinary symptoms. He did follow with Dr. Hutton's office will send him down for a computed tomography scan. Patient also had some loose stools. Admitted with acute sigmoid diverticulitis with acute perforation. Started on IV Zosyn IV fluids nothing by mouth. Repeat computed tomography scan on December 04 showed increasing size of the abscess Today: Sitting up in a chair. Minimal left lower quadrant discomfort. No bowel movement. Tolerating a diet. No fever no chills. Feels better Review of systems: Was done for constitutional, cardiovascular, GI, pulmonary. relevant finding as above Active Medications Acetaminophen (Acetaminophen Tab 325 Mg Tab) 650 mg PO Q6HR PRN PRN Reason: Fever and/ or Mild Pain Last Admin: 12/05/20 17:49 Dose: 650 mg Documented by: Aspirin (Aspirin 81 Mg) 162 mg PO DAILY [facility] Last Admin: 12/06/20 08:37 Dose: Not Given Documented by: Atorvastatin Calcium (Atorvastatin 80 Mg Tab) 80 mg PO [facility] Last Admin: 12/06/20 20:11 Dose: 80 mg Documented by: Cholecalciferol (Cholecalciferol 25 Mcg (1000 Iu) Tablet) 125 mcg PO DAILY [facility] Last Admin: 12/06/20 08:37 Dose: 125 mcg Documented by: Clotrimazole (Clotrimazole 1% Cream 30 Gm Tube) 1 applic TOPICAL BID [facility] Last Admin: 12/06/20 20:13 Dose: Not Given Documented by: Donepezil HCl (Donepezil 10 Mg Tab) 10 mg PO DAILY [facility] Last Admin: 12/06/20 08:37 Dose: 10 mg Documented by: Doxazosin Mesylate (Doxazosin 4 Mg Tab) 8 mg PO [facility] Last Admin: 12/06/20 20:12 Dose: 8 mg Documented by: Enoxaparin Sodium (Enoxaparin 40 Mg/0.4 Ml Syringe) 40 mg SQ DAILY [facility] Last Admin: 12/06/20 08:38 Dose: 40 mg Documented by: Finasteride (Finasteride 5 Mg Tab) 5 mg PO HS [facility] Last Admin: 12/06/20 20:12 Dose: 5 mg Documented by: Lactated Ringer's (Lactated Ringers) 1,000 mls @ 60 mls/hr IV .[id number] [facility] Last Admin: 12/06/20 15:16 Dose: Not Given Documented by: Piperacillin Sod/Tazobactam (Sod 3.375 gm/ Sodium Chloride) 100 mls @ 25 mls/hr IVPB Q8H [facility] Last Admin: 12/06/20 17:39 Dose: 25 mls/hr Documented by: Iopamidol (Iopamidol Contrast (Oral Use) Vial) 30 ml PO Q60M PRN PRN Reason: CT Scan Stop: 12/07/20 12:13 Lactobacillus Acidoph/Bulgaricus (Lactobacillus Acidoph & Bulgar 1 Each Packet) 1 each PO W/LUNCH [facility] Last Admin: 12/06/20 12:09 Dose: 1 each Documented by: Montelukast Sodium (Montelukast 10 Mg Tab) 10 mg PO DAILY [facility] Last Admin: 12/06/20 08:37 Dose: 10 mg Documented by: Multivitamins (Multivitamins, Thera 1 Each Tab) 1 each PO AC-SUPPER [facility] Last Admin: 12/06/20 17:38 Dose: 1 each Documented by: Naloxone HCl (Naloxone 0.4 Mg/Ml 1 Ml Vial) 0.2 mg IV Q2M PRN PRN Reason: Opioid Reversal Pantoprazole Sodium (Pantoprazole 40 Mg/10 Ml Vial) 40 mg IVP DAILY [facility] Last Admin: 12/06/20 08:37 Dose: 40 mg Documented by: Propranolol HCl (Propranolol 40 Mg Tab) 40 mg PO AC-BID [facility] Last Admin: 12/06/20 17:38 Dose: 40 mg Documented by: Zinc Sulfate (Zinc Sulfate 220 Mg Cap) 220 mg PO DAILY [facility] Last Admin: 12/06/20 08:37 Dose: 220 mg Documented by: Past medical history to include: BPH, hyperlipidemia, benign forgetfulness of the elderly 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 Alcohol rarely. Family history: Reviewed, noncontributory to presentation Physical examination: VITAL SIGNS: 98.2, 67, 20, 100/61, 95% room air GENERAL: Sitting up in a chair, comfortable. EYES: Pupils equal. Conjunctiva normal. HEENT: External appearance of nose and ears normal, oral cavity grossly normal. NECK: JVD not raised; masses not palpable. HEART: First and second heart sounds are normal; no edema. LUNGS: Respiratory rate normal; clear to auscultation. ABDOMEN: Soft, mild left lower quadrant tenderness, no guarding rigidity, liver spleen not palpable, no masses palpable. PSYCH: Alert and oriented x3; mood and affect normal. INVESTIGATIONS, reviewed in the clinical context: December 06: WBC to 11.6 hemoglobin 14 December 05: WBC 10.2 pro-calcitonin 0.07 December 04: WBC 9.[address] abdomen pelvis: Increase excessive abscess December 03: WBC 11.1 hemoglobin 14.4 December 02: WBC 12.4 hemoglobin 14.4 S1 72 December 01: WBC 12 hemoglobin 16 potassium 4.4 creatinine 0.8 WBC 11.8 hemoglobin 16.7 platelets 145 neutrophils 9.6 potassium 3.8 creatinine 0.89 Coronavirus [PCR]-not detected Computed tomography scan abdomen and pelvis with contrast: Descending and sigmoid colonic diverticulosis. Moderate inflammation noted within the left lower quadrant and upper pelvis. Crit is decreased inflammation noted on the mid sigmoid colon. 2.8 cm fluid no acute contains some air on that date her margin of the mid sigmoid colon sitting or inflamed and thickened loop of small bowel. Prostate again enlarged. Assessment and plan: -Acute sigmoid diverticulitis with localized perforation 2.8 cm.-/. Repeat computed tomography scan on December 04: Showing increasing size of abscess Continue IV Zosyn and IV fluids. Follow with surgery. 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 Repeat computed tomography scan tomorrow morning..
[2020-12-07] MEDS: PIPERACILLIN-TAZOBACTAM 3.375 GM in SODIUM CHLORIDE 0.9% 100 ML IVPB SCH ×3 (03:02→18:33)
[2020-12-07] MEDS: LACTATED RINGERS 1,000 ML IV SCH (05:10)
[2020-12-07 06:44] LABS: Basophils # (A) 0.1 k/uL (0-0.2); Basophils % (A) 1 %; Eosinophils # (A) 0.1 k/uL (0-0.7); Eosinophils % (A) 2 %; HCT 41.8 % (39.0-53.0); HGB 14.1 gm/dL (13.0-17.5); Lymphocytes # (A) 1.7 k/uL (1.0-4.8); Lymphocytes % (A) 24 %; MCH 32.1 pg (25.0-35.0); MCHC 33.6 g/dL (31.0-37.0); MCV 95.4 fL (80.0-100.0); Mean Platelet Volume 7.4; Monocytes # (A) 0.4 k/uL (0-1.0); Monocytes % (A) 5 %; Neutrophils # (A) 4.7 k/uL (1.3-7.7); Neutrophils % (A) 67 %; Platelet Count 205 k/uL (150-450); RBC 4.38 m/uL (4.30-5.90); RDW 12.4 % (11.5-15.5); WBC 7.1 k/uL (3.8-10.6)
[2020-12-07] MEDS: DONEPEZIL 10 MG TAB PO SCH (07:34)
[2020-12-07] MEDS: ENOXAPARIN 40 MG/0.4 ML SYRINGE SQ SCH (07:34)
[2020-12-07] MEDS: PROPRANOLOL 40 MG TAB PO SCH ×2 (07:34→18:34)
[2020-12-07] MEDS: ASPIRIN 81 MG PO SCH (07:34)
[2020-12-07] MEDS: CHOLECALCIFEROL 25 MCG (1000 IU) TABLET PO SCH (07:34)
[2020-12-07] MEDS: MONTELUKAST 10 MG TAB PO SCH (07:35)
[2020-12-07] MEDS: ZINC SULFATE 220 MG CAP PO SCH (07:35)
[2020-12-07] MEDS: PANTOPRAZOLE 40 MG/10 ML VIAL IVP SCH (07:35)
[2020-12-07] MEDS: CLOTRIMAZOLE 1% CREAM 30 GM TUBE TOPICAL SCH ×2 (07:44→21:50)
[2020-12-07] MEDS: LACTOBACILLUS ACIDOPH & BULGAR 1 EACH PACKET PO SCH (11:31)
--- NOTE | 2020-12-07 13:33 | P.PN ---
Subjective Progress Note Date: 12/07/20 CHIEF COMPLAINT: Abdominal pain HISTORY OF PRESENT ILLNESS: Surgical service is following in regards to acute diverticulitis with perforation and contained leak. Patient denies any abdominal pain. He is tolerating a full liquid diet. GI service has advance him to a high fiber diet. Patient is scheduled for a repeat computed tomography scan of the abdomen today Patient is afebrile. White count 7.1. Patient scheduled for PICC line placement today for outpatient IV antibiotics. Patient seen and examined with Dr. Guardado PHYSICAL EXAM: VITAL SIGNS: Reviewed. GENERAL: Well-developed in no acute distress. HEENT: No sclera icterus. Extraocular movements grossly intact. Moist buccal mucosa. Head is atraumatic, normocephalic. ABDOMEN: Soft. Nondistended. Minimal left lower quadrant tenderness to palpation NEUROLOGIC: Alert and oriented. Cranial nerves II through XII grossly intact. ASSESSMENT: 1. Acute mid sigmoid diverticulitis with perforation and contained leak. With repeat CAT scan showing an increased size in the abscess measuring 4 cm. Patient's symptoms continued to improve. He is afebrile. White count has normalized. 2. 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 Signing provider agrees with the documented findings, assessment, and plan of care. Objective - Vital Signs Vital signs: Vital Signs Temp 97.4 F L 12/07/20 05:00 Pulse 63 12/07/20 12:18 Resp 16 12/07/20 12:18 BP 109/68 12/07/20 12:18 Pulse Ox 94 L 12/07/20 12:18 Intake & Output 12/06/20 12/07/20 12/07/20 18:59 06:59 18:59 Intake Total 580 Balance 580 Intake: Intake, IV Titration 580 Amount Lactated Ringers 1,000 ml 480 @ 60 mls/hr IV .[id number] [facility] Rx#:[id number] Piperacillin-Tazobactam 3 100 .375 gm In Sodium Chloride 0.9% 100 ml @ 25 mls/hr IVPB Q8H [facility] Rx#: [id number] Other: Voiding Method Toilet - Labs CBC & Chem 7: 12/07/20 06:11 12/01/20 06:11 Labs: Abnormal Lab Results - Last 24 Hours (Table) 12/06/20 Range/Units 15:49 WBC 11.6 H (3.8-10.6) k/uL Neutrophils # 9.1 H (1.3-7.7) k/uL Microbiology - Last 24 Hours (Table) 11/30/20 16:13 Blood Culture - Final Blood No Growth after 144 hours
[2020-12-07 13:38] VITALS: BMI 30.2
[2020-12-07 13:41] LABS: INR 1.1 (<1.2); Prothrombin Time 11.4 sec (9.0-12.0)
--- NOTE | 2020-12-07 13:59 | P.PN ---
Subjective Progress Note Date: 12/07/20 Principal diagnosis: Abdominal pain, diverticulitis with abscess This is a pleasant 75-year-old white male patient with a past medical history of hypertension, hyperlipidemia, and BPH who presented to the emergency room yesterday with abdominal pain. The patient states he started having diffuse abdominal pain on , which he thought was constipation. He then began to have fever and chills and worsening abdominal pain. He had a max temperature of [address] of the abdomen showed colitis with a 2.8 cm fluid locule containing some air, possible small contained leak. Then had a repeat computed tomography scan that showed an increase in the abscess to 4 cm. He continues to deny any severe abdominal pain, fever or chills. He denies nausea or vomiting. He states he only discomfort he has is when he moves or coughs. The patient was scheduled to have a repeat CT of the abdomen done today. Infectious diseases on consult. Objective - Vital Signs Vital signs: Vital Signs Temp 97.4 F L 12/07/20 05:00 Pulse 63 12/07/20 12:18 Resp 16 12/07/20 12:18 BP 109/68 12/07/20 12:18 Pulse Ox 94 L 12/07/20 12:18 Intake & Output 12/06/20 12/07/20 12/07/20 18:59 06:59 18:59 Intake Total 580 Balance 580 Weight 107.048 kg Intake: Intake, IV Titration 580 Amount Lactated Ringers 1,000 ml 480 @ 60 mls/hr IV .[id number] [facility] Rx#:[id number] Piperacillin-Tazobactam 3 100 .375 gm In Sodium Chloride 0.9% 100 ml @ 25 mls/hr IVPB Q8H [facility] Rx#: [id number] Other: Voiding Method Toilet - Exam General appearance: The patient is alert, oriented, appears in no acute distress. HET: Head is normocephalic and atraumatic. Conjunctiva pink. Sclera anicteric. Neck: Supple without lymphadenopathy. Abdomen: Soft, mild left lower tenderness, nondistended with bowel sounds. No guarding or rigidity. Extremities: Normal skin color and turgor. No pedal edema Skin: No rashes, no jaundice Neurological: No focal deficits. Alert and oriented 3. - Labs CBC & Chem 7: 12/07/20 06:11 12/01/20 06:11 Labs: Abnormal Lab Results - Last 24 Hours (Table) 12/06/20 Range/Units 15:49 WBC 11.6 H (3.8-10.6) k/uL Neutrophils # 9.1 H (1.3-7.7) k/uL Microbiology - Last 24 Hours (Table) 11/30/20 16:13 Blood Culture - Final Blood No Growth after 144 hours Assessment and Plan (1) Abdominal pain Narrative/Plan: This is a 75-year-old gentleman who presented to the emergency department yesterday with complaints of severe abdominal pain that began on . He states the pain began diffuse throughout the abdomen, with feelings of constipation. He later had a bowel movement, followed by fever and chills. Pain then radiated down to the left lower abdomen and persisted. He states he had nausea, no vomiting. He denies any blood in his stool or blood per rectum. States his last colonoscopy was approximately 5 years ago, for which he believes he had polyps and diverticulosis. He has no history of diverticulitis. Found on CT of the abdomen moderate inflammation in the left lower quadrant and upper pelvis. This may relate to acute mid sigmoid diverticulitis. A 2.8 cm fluid locule containing some air, possible small contained leak, is located along the anterior margin of the mid sigmoid colon and abuts and inflamed and thickened loop of small bowel. Moderate to severe regional enteritis is the alternative consideration. Follow-up CT recommended if patient does not respond to conservative management. Wall thickening and surrounding fat stranding of the bladder dome, likely reactive inflammation. Correlate to exclude cystitis. The patient is currently on Zosyn, abdominal pain has improved. He denies any further nausea or vomiting. He is been afebrile. Surgery is on consult. We'll continue to keep nothing by mouth, broad-spectrum antibiotics, and possible repeat CT of the abdomen in 3-4 days. Patient will have repeat CT of the abdomen and pelvis tomorrow. Current Visit: Yes Status: Acute Code(s): R10.9 - UNSPECIFIED ABDOMINAL PAIN SNOMED Code(s): 98990409 (2) Diverticulitis of colon with perforation Narrative/Plan: Surgical service is on consult, conservative management at this time. Continue broad-spectrum antibiotics. P computed tomography scan ordered. Infectious disease Consult. Current Visit: Yes Status: Acute Code(s): K57.20 - DVTRCLI OF LG INT W PERFORATION AND ABSCESS W/O BLEEDING SNOMED Code(s): 2996382 Plan: 1. Symptomatic and supportive care 2. Advance to high fiber diet 3. Continue IV antibiotics as ordered 4. Monitor labs closely 5. Gen. surgery on consult 6. Repeat CT of the abdomen ordered per primary medicine 10. Infectious disease on consult, appreciate their recommendations on IV antibiotic therapy Thank you for this consultation, we will continue to follow Dr. Keeley Moy I agree with the dictator's note, documented as a scribe by Kaleigh Haddad.
[2020-12-07] MEDS: IOPAMIDOL CONTRAST (ORAL USE) VIAL PO PRN ×2 (14:13→15:13)
--- NOTE | 2020-12-07 16:29 | CT ---
EXAMINATION TYPE: CT abdomen pelvis w con DATE OF EXAM: 12/07/2020 COMPARISON: CT abdomen and pelvis pre and 7 days earlier. HISTORY: Follow up abscess. CT DLP: 1715 mGycm, Automated Exposure Control for Dose Reduction was Utilized. CONTRAST: CT scan of the abdomen and pelvis is performed with oral and with IV Contrast, patient injected with 80 mL of Isovue 300. FINDINGS: LUNG BASES: Stable mild left basilar linear scarring and/or atelectasis. LIVER/GB: Gallbladder not seen and presumed surgically absent. Visualized liver hypodensities consist ent with diffuse fatty infiltration.. PANCREAS: No significant abnormality is seen. SPLEEN: No significant abnormality is seen. ADRENALS: No significant abnormality is seen. KIDNEYS: No significant abnormality is seen. BOWEL: Oral contrast reaches level of rectum on current study. There is diverticular disease in the l eft and sigmoid colon greatest in the sigmoid colon redemonstrated. There is persistent moderate flui d and fat stranding anteriorly up to small well-defined thin-walled fluid collection measuring 3.1 x 2.5 cm image 72 consistent with small abscess. This is improved or diminished in size from most recen t CT just above the bladder. There is overlying anterior or draping small bowel loops similar to prio r study. No free air. No new focal fluid collection or abscess. PROSTATE/SEMINAL VESICLES: No gross abnormality seen. LYMPH NODES: No greater than 1cm abdominal or pelvic lymph nodes are appreciated. OSSEOUS STRUCTURES: No significant abnormality is seen. OTHER: Mild to moderate calcified plaque of the aorta extends into branch vessels. IMPRESSION: Persistent moderate acute proximal to mid sigmoid colonic diverticulitis with small adjac ent peridiverticular abscess. Findings show some improvement from most recent CT. No new abscess iden tified.
--- NOTE | 2020-12-07 17:03 | PN ---
PROGRESS NOTE DATE OF SERVICE: 12/07/2020 REASON FOR FOLLOWUP: Complicated diverticulitis with an abscess. INTERVAL HISTORY: The patient is currently afebrile. The patient has been breathing comfortably. The patient denies having any chest pain or shortness of breath or cough. Abdominal pain is currently controlled. No nausea, no vomiting or diarrhea. PHYSICAL EXAMINATION: Blood pressure 109/68, pulse of 63, temperature 97.4. He is 94% on room air. General description is an elderly male up in the chair in no distress. RESPIRATORY SYSTEM: Unlabored breathing. Clear to auscultation anteriorly. HEART: S1, S2. Regular rate and rhythm. ABDOMEN: Soft. No tenderness. LABS: Hemoglobin is 14.1, white count 7.1. CT was reviewed with the radiologist and the abscess could be drain with CT guidance. DIAGNOSTIC IMPRESSION AND PLAN: Patient with complicated diverticulitis with abscess. Interventional Radiology consulted for drainage of this abscess. Fluid should be sent for culture, both aerobic and anaerobic. Continue with Zosyn. Discharge antibiotic depending upon the cultures and his clinical response to the drainage procedure. Continue with supportive care. MMODL / IJN: [id number] /
[2020-12-07] MEDS: MULTIVITAMINS, THERA 1 EACH TAB PO SCH (18:34)
[2020-12-07] MEDS: ATORVASTATIN 80 MG TAB PO SCH (21:41)
[2020-12-07] MEDS: DOXAZOSIN 4 MG TAB PO SCH (21:41)
[2020-12-07] MEDS: FINASTERIDE 5 MG TAB PO SCH (21:41)
--- NOTE | 2020-12-07 23:10 | P.PN ---
Progress Note - Text Progress Note Date: 12/07/20 Chief Complaint: Abdominal pain History of presenting complaint: This is a very pleasant 75-year-old patient Dr. Hutton. Chronic stable medical conditions include BPH, hyperlipidemia, benign forgetfulness of them daily. Patient rather active. 4 days ago he finished the morning meeting is started noticing some abdominal discomfort. By late in the day he was not feeling well. Had a fever up to 103. Chills. Not feeling well. Fever broke the following day. He did decrease appetite. Abdominal symptoms progress. Continue to feel worse. Patient had no urinary symptoms. He did follow with Dr. Hutton's office will send him down for a computed tomography scan. Patient also had some loose stools. Admitted with acute sigmoid diverticulitis with acute perforation. Started on IV Zosyn IV fluids nothing by mouth. Repeat computed tomography scan on December 04 showed increasing size of the abscess Today: Sitting up in a chair. Minimal left lower quadrant discomfort. Feeling better. Had a lengthy discussion with the patient and Dr. Keeley Moy and aman LV safer to get a computed tomography scan to make sure is not growing in size as sometimes even doing better clinically, abscess, may progress sealed off. Patient is agreeable to proceed with a computed tomography scan later today. Review of systems: Was done for constitutional, cardiovascular, GI, pulmonary. relevant finding as above Active Medications Acetaminophen (Acetaminophen Tab 325 Mg Tab) 650 mg PO Q6HR PRN PRN Reason: Fever and/ or Mild Pain Last Admin: 12/05/20 17:49 Dose: 650 mg Documented by: Aspirin (Aspirin 81 Mg) 162 mg PO DAILY [facility] Last Admin: 12/07/20 07:34 Dose: Not Given Documented by: Atorvastatin Calcium (Atorvastatin 80 Mg Tab) 80 mg PO HS [facility] Last Admin: 12/07/20 21:41 Dose: 80 mg Documented by: Cholecalciferol (Cholecalciferol 25 Mcg (1000 Iu) Tablet) 125 mcg PO DAILY [facility] Last Admin: 12/07/20 07:34 Dose: 125 mcg Documented by: Clotrimazole (Clotrimazole 1% Cream 30 Gm Tube) 1 applic TOPICAL BID [facility] Last Admin: 12/07/20 21:50 Dose: Not Given Documented by: Donepezil HCl (Donepezil 10 Mg Tab) 10 mg PO DAILY [facility] Last Admin: 12/07/20 07:34 Dose: 10 mg Documented by: Doxazosin Mesylate (Doxazosin 4 Mg Tab) 8 mg PO HS [facility] Last Admin: 12/07/20 21:41 Dose: 8 mg Documented by: Enoxaparin Sodium (Enoxaparin 40 Mg/0.4 Ml Syringe) 40 mg SQ DAILY [facility] Last Admin: 12/07/20 07:34 Dose: 40 mg Documented by: Finasteride (Finasteride 5 Mg Tab) 5 mg PO HS [facility] Last Admin: 12/07/20 21:41 Dose: 5 mg Documented by: Lactated Ringer's (Lactated Ringers) 1,000 mls @ 60 mls/hr IV .[id number] [facility] Last Admin: 12/07/20 05:10 Dose: 60 mls/hr Documented by: Piperacillin Sod/Tazobactam (Sod 3.375 gm/ Sodium Chloride) 100 mls @ 25 mls/hr IVPB Q8H [facility] Last Admin: 12/07/20 18:33 Dose: 25 mls/hr Documented by: Lactobacillus Acidoph/Bulgaricus (Lactobacillus Acidoph & Bulgar 1 Each Packet) 1 each PO W/LUNCH [facility] Last Admin: 12/07/20 11:31 Dose: 1 each Documented by: Montelukast Sodium (Montelukast 10 Mg Tab) 10 mg PO DAILY [facility] Last Admin: 12/07/20 07:35 Dose: 10 mg Documented by: Multivitamins (Multivitamins, Thera 1 Each Tab) 1 each PO AC-SUPPER [facility] Last Admin: 12/07/20 18:34 Dose: 1 each Documented by: Naloxone HCl (Naloxone 0.4 Mg/Ml 1 Ml Vial) 0.2 mg IV Q2M PRN PRN Reason: Opioid Reversal Pantoprazole Sodium (Pantoprazole 40 Mg/10 Ml Vial) 40 mg IVP DAILY [facility] Last Admin: 12/07/20 07:35 Dose: 40 mg Documented by: Propranolol HCl (Propranolol 40 Mg Tab) 40 mg PO AC-BID [facility] Last Admin: 12/07/20 18:34 Dose: 40 mg Documented by: Zinc Sulfate (Zinc Sulfate 220 Mg Cap) 220 mg PO DAILY [facility] Last Admin: 12/07/20 07:35 Dose: 220 mg Documented by: Past medical history to include: BPH, hyperlipidemia, benign forgetfulness of the elderly Social history: 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 Ex-smoker. Alcohol rarely. Family history: Reviewed, noncontributory to presentation Physical examination: VITAL SIGNS: 97.4, 67, 16, 110/68, 94% room air GENERAL: Sitting up in a chair, comfortable. EYES: Pupils equal. Conjunctiva normal. HEENT: External appearance of nose and ears normal, oral cavity grossly normal. NECK: JVD not raised; masses not palpable. HEART: First and second heart sounds are normal; no edema. LUNGS: Respiratory rate normal; clear to auscultation. ABDOMEN: Soft, mild left lower quadrant tenderness, no guarding rigidity, liver spleen not palpable, no masses palpable. PSYCH: Alert and oriented x3; mood and affect normal. INVESTIGATIONS, reviewed in the clinical context: December 07: Told to be 7.1 hemoglobin 14.1 Computed tomography scan abdomen and pelvis: Persistent moderate acute proximal to mid sigmoid colonic diverticulitis with small adjacent peridiverticular abscess. Showing some improvement from the previous CT December 06: WBC to 11.6 hemoglobin 14 December 05: WBC 10.2 pro-calcitonin 0.07 December 04: WBC 9.[address] abdomen pelvis: Increase excessive abscess December 03: WBC 11.1 hemoglobin 14.4 December 02: WBC 12.4 hemoglobin 14.4 S1 72 December 01: WBC 12 hemoglobin 16 potassium 4.4 creatinine 0.8 WBC 11.8 hemoglobin 16.7 platelets 145 neutrophils 9.6 potassium 3.8 creatinine 0.89 Coronavirus [PCR]-not detected Computed tomography scan abdomen and pelvis with contrast: Descending and sigmoid colonic diverticulosis. Moderate inflammation noted within the left lower quadrant and upper pelvis. Crit is decreased inflammation noted on the mid sigmoid colon. 2.8 cm fluid no acute contains some air on that date her margin of the mid sigmoid colon sitting or inflamed and thickened loop of small bowel. Prostate again enlarged. Assessment and plan: -Acute sigmoid diverticulitis with localized perforation 2.8 cm.-/. Repeat computed tomography scan on December 04: Showing increasing size of abscess. Computed tomography scan film later today on December 07: Shows some improvement Further plan as per discussion with colleagues. 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
[2020-12-08] MEDS: PIPERACILLIN-TAZOBACTAM 3.375 GM in SODIUM CHLORIDE 0.9% 100 ML IVPB SCH ×2 (02:45→10:30)
[2020-12-08] MEDS: LACTATED RINGERS 1,000 ML IV SCH (04:45)
[2020-12-08] MEDS: ENOXAPARIN 40 MG/0.4 ML SYRINGE SQ SCH (07:10)
[2020-12-08] MEDS: PANTOPRAZOLE 40 MG/10 ML VIAL IVP SCH (10:30)
[2020-12-08] MEDS: ASPIRIN 81 MG PO SCH (10:32)
[2020-12-08] MEDS: DONEPEZIL 10 MG TAB PO SCH (10:32)
[2020-12-08] MEDS: PROPRANOLOL 40 MG TAB PO SCH (10:32)
[2020-12-08] MEDS: CLOTRIMAZOLE 1% CREAM 30 GM TUBE TOPICAL SCH (10:32)
[2020-12-08] MEDS: CHOLECALCIFEROL 25 MCG (1000 IU) TABLET PO SCH (10:32)
[2020-12-08] MEDS: ZINC SULFATE 220 MG CAP PO SCH (10:33)
[2020-12-08] MEDS: MONTELUKAST 10 MG TAB PO SCH (10:33)
[2020-12-08 13:13] VITALS: BP 133/79; PULSE 63; RESP 17; TEMP 97.3
[2020-12-08] MEDS: LACTOBACILLUS ACIDOPH & BULGAR 1 EACH PACKET PO SCH (14:18)
--- NOTE | 2020-12-08 14:59 | P.PN ---
Subjective Progress Note Date: 12/08/20 CHIEF COMPLAINT: Abdominal pain HISTORY OF PRESENT ILLNESS: Surgical service is following in regards to acute diverticulitis with perforation and contained leak. Patient denies any abdominal pain. Patient is tolerating diet. His repeat computed tomography scan shows improvement and decrease in abscess size to 3.1 cm. Afebrile Patient seen and examined with Dr. Guardado PHYSICAL EXAM: VITAL SIGNS: Reviewed. GENERAL: Well-developed in no acute distress. HEENT: No sclera icterus. Extraocular movements grossly intact. Moist buccal mucosa. Head is atraumatic, normocephalic. ABDOMEN: Soft. Nondistended. Minimal left lower quadrant tenderness to palpation NEUROLOGIC: Alert and oriented. Cranial nerves II through XII grossly intact. ASSESSMENT: 1. Acute mid sigmoid diverticulitis with perforation and contained leak. Repeat computed tomography scan showing decreased size in abscess. 2. Abdominal pain PLAN: -Continue current diet -Antibiotics per ID -No surgical intervention planned -Patient can be discharge from surgical standpoint. -Lovenox for DVT prophylaxis -GI prophylaxis Protonix Physician Tourist Information Assistant note has been reviewed by physician. Signing provider agrees with the documented findings, assessment, and plan of care. Objective - Vital Signs Vital signs: Vital Signs Temp 97.3 F L 12/08/20 13:00 Pulse 63 12/08/20 13:00 Resp 17 12/08/20 13:00 BP 133/79 12/08/20 13:00 Pulse Ox 95 12/08/20 13:00 Intake & Output 12/07/20 12/08/20 12/08/20 18:59 06:59 18:59 Intake Total 400 500 Balance 400 500 Weight 107.048 kg Intake: Intake, IV Titration 400 Amount Lactated Ringers 1,000 ml 300 @ 60 mls/hr IV .[id number] [facility] Rx#:[id number] Piperacillin-Tazobactam 3 100 .375 gm In Sodium Chloride 0.9% 100 ml @ 25 mls/hr IVPB Q8H [facility] Rx#: [id number] Oral 500 Other: Voiding Method Toilet # Voids 4 - Labs CBC & Chem 7: 12/07/20 06:11 12/01/20 06:11
[2020-12-08] MEDS ORDERED: ERTAPENEM 1 GM in SODIUM CHLORIDE 0.9% 50 ML IVPB ONE (15:00)
--- NOTE | 2020-12-08 15:06 | P.DS ---
Providers Date of admission: 11/30/20 14:27 Expected date of discharge: 12/08/20 Attending physician: Joey De La Torre Consults: 11/30/20 14:28 Consult Physician Urgent Consulting Provider: Dedrick Guardado Consult Reason/Comments: diverticulitis with perf Do you want consulting provider notified?: Yes Consult Physician Urgent Consulting Provider: Azeb Moy Consult Reason/Comments: diverticulitis with perf Do you want consulting provider notified?: Yes 12/06/20 12:12 Consult Physician Routine Consulting Provider: Shanae Alvarez Consult Reason/Comments: abscess Do you want consulting provider notified?: Yes Primary care physician: Ab Hutton Hospital Course: Final diagnosis Acute sigmoid diverticulitis with localized perforation Benign prostatic hypertrophy Hyperlipidemia Essential hypertension Benign forgetfulness of the elderly DVT prophylaxis Full code Discharge disposition Patient is being discharged in a stable condition with guarded prognosis to [facility]. Patient will continue with home care in the outpatient setting. Patient will follow-up with Dr. Ab Hutton upon discharge. Patient also instructed to follow-up with surgery next week and GI as scheduled. Patient will continue on IV antibiotics per infectious disease. Total time taken is greater than 35 minutes. Hospital course This is a very pleasant 75-year-old patient Dr. Hutton. Chronic stable medical conditions include BPH, hyperlipidemia, benign forgetfulness of them daily. Patient rather active. 4 days ago he finished the morning meeting is started noticing some abdominal discomfort. By late in the day he was not feeling well. Had a fever up to 103. Chills. Not feeling well. Fever broke the following day. He did decrease appetite. Abdominal symptoms progress. Continue to feel worse. Patient had no urinary symptoms. He did follow with Dr. Hutton's office will send him down for a computed tomography scan. Patient also had some loose stools. Admitted with acute sigmoid diverticulitis with acute perforation. Started on IV Zosyn IV fluids nothing by mouth. Repeat computed tomography scan on December 04 showed increasing size of the abscess Today: Sitting up in a chair. Minimal left lower quadrant discomfort. Feeling better. Had a lengthy discussion with the patient and Dr. Keeley Moy will get a computed tomography scan to make sure is not growing in size as sometimes even doing better clinically, abscess, may progress sealed off. Patient is agreeable to proceed with a computed tomography scan later today. 12/08/2020 Patient is seen and evaluated and follow-up and was seen and evaluated by surgery and patient will be scheduled for outpatient surgery next week. Patient had a repeat CT of the abdomen showing persistent moderate acute proximal to mid sigmoid colonic diverticulitis with small adjacent Diverticular abscess and IR stated the abscess was too small for a drain and patient will be continued on IV antibiotic therapy in the outpatient setting. Infectious disease following and patient will be receiving a midline and will continue with home care for IV antibiotic administration. Currently no reports of chest pain, shortness of br eath, or palpitations. Patient is afebrile. No reports of nausea or vomiting and patient is tolerating diet. Guarded prognosis. On exam vital signs are stable. Cardio S1, S2 are muffled. Respiratory shows diminished breath sounds at the bases with a few scattered rhonchi noted. Some mild expiratory wheezing noted. Abdomen is soft and nontender. Nervous system shows no focal deficits. Please refer to medication reconciliation sheet for a list of medications. Patient Condition at Discharge: Stable Plan - Discharge Summary Discharge Rx Participant: No New Discharge Prescriptions: New Acetaminophen Tab [Tylenol] 650 mg PO Q6HR PRN tab PRN Reason: Fever and/ or Mild Pain Continue Multivitamins, Thera [Multivitamin (formulary)] 1 tab PO AC-SUPPER L.acidoph,Paracasei, B.lactis [Probiotic] 1 cap PO W/LUNCH Finasteride [Proscar] 5 mg PO HS Cinnamon Bark [Cinnamon] 500 mg PO W/LUNCH Atorvastatin Calcium [Lipitor] 80 mg PO HS Propranolol [Inderal] 40 mg PO AC-BID Montelukast [Singulair] 10 mg PO DAILY Zinc Gluconate [Zinc] 50 mg PO DAILY Donepezil [Aricept] 10 mg PO DAILY Cholecalciferol (Vitamin D3) [Vitamin D3 (5000 Iu)] 125 mcg PO DAILY Aspirin 162 mg PO DAILY Super B-Complex 1 tab PO DAILY Clotrimazole Cream [Lotrimin Cream] 1 applic TOPICAL BID Terazosin [Hytrin] 5 mg PO BID 5-Hydroxytryptophan (5-Htp) [5-Htp Cr] 100 mg PO HS Discharge Medication List 5-Hydroxytryptophan (5-Htp) [5-Htp Cr] 100 mg PO HS 11/30/20 [History] Aspirin 162 mg PO DAILY 11/30/20 [History] Atorvastatin Calcium [Lipitor] 80 mg PO HS 11/30/20 [History] Cholecalciferol (Vitamin D3) [Vitamin D3 (5000 Iu)] 125 mcg PO DAILY 11/30/20 [History] Cinnamon Bark [Cinnamon] 500 mg PO W/LUNCH 11/30/20 [History] Clotrimazole Cream [Lotrimin Cream] 1 applic TOPICAL BID 11/30/20 [History] Donepezil [Aricept] 10 mg PO DAILY 11/30/20 [History] Finasteride [Proscar] 5 mg PO HS 11/30/20 [History] L.acidoph,Paracasei, B.lactis [Probiotic] 1 cap PO W/LUNCH 11/30/20 [History] Montelukast [Singulair] 10 mg PO DAILY 11/30/20 [History] Multivitamins, Thera [Multivitamin (formulary)] 1 tab PO AC-SUPPER 11/30/20 [History] Propranolol [Inderal] 40 mg PO AC-BID 11/30/20 [History] Super B-Complex 1 tab PO DAILY 11/30/20 [History] Terazosin [Hytrin] 5 mg PO BID 11/30/20 [History] Zinc Gluconate [Zinc] 50 mg PO DAILY 11/30/20 [History] Acetaminophen Tab [Tylenol] 650 mg PO Q6HR PRN tab 12/08/20 [Rx] Follow up Appointment(s)/Referral(s): Shira Acuna PAC [REFERRING] - 12/18/20 9:00 am Ab Hutton MD [Primary Care Provider] - 12/15/20 9:15 am [facility], [NON-STAFF] - 1 Week [facility]Infusion [NON-STAFF] - 1 Week Dedrick Guardado MD [STAFF PHYSICIAN] - 12/17/20 3:45 pm Patient Instructions/Handouts: Piperacillin/Tazobactam (By injection), Diverticulitis (DC), High Fiber Diet (DC), Peripherally Inserted Central Catheters and Midline Catheters (DC) Activity/Diet/Wound Care/Special Instructions: Activity Limited until follow-up Follow-up with surgery in one week Follow-up with primary care provider Continue with IV antibiotics Continue with home care Continue current diet Discharge Disposition: HOME WITH HOME HEALTH SERVICES
--- NOTE | 2020-12-08 16:34 | PN ---
PROGRESS NOTE DATE OF SERVICE: 12/08/2020 REASON FOR FOLLOWUP: Peridiverticular abscess. INTERVAL HISTORY: Patient is currently afebrile. Patient is feeling better. Breathing comfortably. Patient denies any chest pain. No shortness of breath or cough. No abdominal pain. No diarrhea. PHYSICAL EXAMINATION: Blood pressure 133/79 with a pulse of 73, temperature 97.3, he is 95% on room air. General description is an elderly male up in the chair in no distress. Respiratory system unlabored breathing, clear to auscultation anteriorly. HEART: S1, S2. Regular rate and rhythm. ABDOMEN: Soft, no tenderness. LABS: No new labs have been obtained today. Blood culture has been negative. Repeat CT completed yesterday did show overall improvement in the peridiverticular abscess and the drainage possibly will be put on hold. DIAGNOSTIC IMPRESSION AND PLAN: Patient with peridiverticular abscess. This patient has shown overall clinical improvement on current antibiotic therapy of Zosyn. Patient's abscess decreased in size on a CT completed yesterday as Interventional Radiology recommended against . We will arrange for the Medline and outpatient IV Zosyn for 2 weeks with a repeat CT scan at that point. The patient agrees with the plan. Prescription provided and close outpatient followup. MMODL / IJN: [id number] /
--- NOTE | 2020-12-08 16:44 | P.PN ---
Subjective Progress Note Date: 12/08/20 Principal diagnosis: Abdominal pain, diverticulitis with abscess Seen and examined sitting up in chair. He denies any abdominal pain, nausea, or vomiting. He had a loose bowel movement this morning, however states there is no blood. He went down to interventional radiology however they did have filled there was enough fluid in the pocket for drainage. Plan is for patient to be discharged home after PICC line placement on IV antibiotic therapy. Objective - Vital Signs Vital signs: Vital Signs Temp 98.1 F 12/08/20 05:00 Pulse 66 12/08/20 09:05 Resp 16 12/08/20 09:05 BP 144/82 12/08/20 09:05 Pulse Ox 97 12/08/20 09:05 Intake & Output 12/07/20 12/08/20 12/08/20 18:59 06:59 18:59 Intake Total 400 500 Balance 400 500 Weight 107.048 kg Intake: Intake, IV Titration 400 Amount Lactated Ringers 1,000 ml 300 @ 60 mls/hr IV .[id number] DAVIE Rx#:[id number] Piperacillin-Tazobactam 3 100 .375 gm In Sodium Chloride 0.9% 100 ml @ 25 mls/hr IVPB Q8H DAVIE Rx#: [id number] Oral 500 Other: Voiding Method Toilet # Voids 4 - Exam General appearance: The patient is alert, oriented, appears in no acute distress. HET: Head is normocephalic and atraumatic. Conjunctiva pink. Sclera anicteric. Neck: Supple without lymphadenopathy. Abdomen: Soft, no tenderness, nondistended with bowel sounds. No guarding or rigidity. Extremities: Normal skin color and turgor. No pedal edema Skin: No rashes, no jaundice Neurological: No focal deficits. Alert and oriented 3. - Labs CBC & Chem 7: 12/07/20 06:11 12/01/20 06:11 Assessment and Plan (1) Abdominal pain Narrative/Plan: This is a 75-year-old gentleman who presented to the emergency department yesterday with complaints of severe abdominal pain that began on . He states the pain began diffuse throughout the abdomen, with feelings of constipation. He later had a bowel movement, followed by fever and chills. Pain then radiated down to the left lower abdomen and persisted. He states he had nausea, no vomiting. He denies any blood in his stool or blood per rectum. States his last colonoscopy was approximately 5 years ago, for which he believes he had polyps and diverticulosis. He has no history of diverticulitis. Found on CT of the abdomen moderate inflammation in the left lower quadrant and upper pelvis. This may relate to acute mid sigmoid diverticulitis. A 2.8 cm fluid locule containing some air, possible small contained leak, is located along the anterior margin of the mid sigmoid colon and abuts and inflamed and thickened loop of small bowel. Moderate to severe regional enteritis is the alternative consideration. Follow-up CT recommended if patient does not respond to conservative management. Wall thickening and surrounding fat stranding of the bladder dome, likely reactive inflammation. Correlate to exclude cystitis. The patient is currently on Zosyn, abdominal pain has improved. He denies any further nausea or vomiting. He is been afebrile. Surgery is on consult. We'll continue to keep nothing by mouth, broad-spectrum antibiotics, and possible repeat CT of the abdomen in 3-4 days. Patient will have repeat CT of the abdomen and pelvis tomorrow. Status: Acute Code(s): R10.9 - UNSPECIFIED ABDOMINAL PAIN SNOMED Code(s): 60306803 (2) Diverticulitis of colon with perforation Narrative/Plan: Surgical service is on consult, conservative management at this time. Continue broad-spectrum antibiotics. P computed tomography scan ordered. Infectious disease Consult. Status: Acute Code(s): K57.20 - DVTRCLI OF LG INT W PERFORATION AND ABSCESS W/O BLEEDING SNOMED Code(s): 0708058 Plan: 1. Symptomatic and supportive care 2. Advance to high fiber diet 3. Continue IV antibiotics as ordered 4. PICC line continued IV antibiotics per recommendation of infectious disease 5. Patient will need to follow-up with gastroenterology and outpatient colonoscopy in 2-[address] Connolly I agree with the dictator's note, documented as a scribe by Kaleigh Haddad.
== END 2020-12-08 15:30 | disposition home health service (06) | DRG 391 ==
LOC: EC 11:30 → 5NMEDONC 14:27
PROVIDERS: ADMIT Hospitalist; ATTEND Hospitalist
PROC: 05HB33Z Insertion of Infusion Device into Right Basilic Vein, Percutaneous Approach (ICD-10-PCS; principal; 2020-12-08 13:30)
DX: K57.20 Diverticulitis of large intestine with perforation and abscess without bleeding (principal); K65.9 Peritonitis, unspecified; E78.5 Hyperlipidemia, unspecified; H53.2 Diplopia; I10 Essential (primary) hypertension; Z79.82 Long term (current) use of aspirin; N40.0 Benign prostatic hyperplasia without lower urinary tract symptoms; K59.00 Constipation, unspecified; Z82.5 Family history of asthma and other chronic lower respiratory diseases; K21.9 Gastro-esophageal reflux disease without esophagitis; Z87.891 Personal history of nicotine dependence; Z20.822 Contact with and (suspected) exposure to COVID-19
CPT/HCPCS: 36410; 36415; 74177; 76937; 80048; 80053; 81001; 82247; 83605; 83690; 84145; 85025; 85610; 85652; 85730; 87040; 87635; 99285

== ENCOUNTER → 2020-12-23 | Outpatient (CLI) | payer MEDICARE ==
--- NOTE | 2020-12-23 12:40 | CT ---
EXAMINATION TYPE: CT abdomen pelvis w con DATE OF EXAM: 12/23/2020 COMPARISON: CT abdomen and pelvis December 07, 2020 and older CTs HISTORY: diverticulitis w/ abscess CT DLP: 1870.4 mGycm, Automated Exposure Control for Dose Reduction was Utilized. CONTRAST: CT scan of the abdomen and pelvis is performed with oral and with IV Contrast, patient injected with 100ml mL of Isovue 300. FINDINGS: LUNG BASES: Stable mild central left basilar linear scarring and/or atelectasis. LIVER/GB: Gallbladder not seen and presumed surgically absent. Visualized liver is hypodense suggesti ng diffuse fatty infiltration. PANCREAS: No significant abnormality is seen. SPLEEN: No significant abnormality is seen. ADRENALS: No significant abnormality is seen. KIDNEYS: No significant abnormality is seen. BOWEL: Oral contrast reaches level of rectum on current study. There is diverticular disease in the l eft and sigmoid colon greatest in the sigmoid colon redemonstrated. There is interval complete resolu tion of adjacent moderate fluid and fat stranding anteriorly in the proximal sigmoid colon of the lef t pelvis. No new focal fluid collection or abscess. No free air. PROSTATE/SEMINAL VESICLES: Vascular right-sided pelvic phleboliths adjacent to normal size prostate LYMPH NODES: No new greater than 1cm abdominal or pelvic lymph nodes are appreciated. OSSEOUS STRUCTURES: Facet arthropathy lower lumbar spine. OTHER: Mild calcified plaque of the aorta extends into branch vessels is redemonstrated. IMPRESSION: Interval complete resolution of acute sigmoid colonic diverticulitis with adjacent absces s. No new or acute findings identified on current study.
== END | disposition home or self-care (01) ==
LOC: RADPROMAIN 10:04
PROVIDERS: ATTEND Internal Medicine Infectious Disease
DX: K57.20 Diverticulitis of large intestine with perforation and abscess without bleeding (principal)
CPT/HCPCS: 74177; Q9967

== ENCOUNTER → 2021-01-19 | Outpatient (CLI) | payer MEDICARE | END | disposition home or self-care (01) | LOC: LABWHC1 12:24 | PROVIDERS: ATTEND Surgery Plastic and Reconstructive Surgery | DX: I11.0 Hypertensive heart disease with heart failure (principal); I50.9 Heart failure, unspecified; R00.1 Bradycardia, unspecified | CPT/HCPCS: 93005 ==

== ENCOUNTER → 2021-04-14 | Outpatient (CLI) | payer MEDICARE ==
[2021-04-14 10:19] LABS: HCT 50.8 % (39.0-53.0); HGB 17.3 gm/dL (13.0-17.5); MCH 33.7 pg (25.0-35.0); MCV 99.1 fL (80.0-100.0); Mean Platelet Volume 8.4; Platelet Count 134 k/uL (150-450); RBC 5.13 m/uL (4.30-5.90); RDW 13.4 % (11.5-15.5); WBC 7.4 k/uL (3.8-10.6)
[2021-04-14 10:33] LABS: Albumin 4.3 g/dL (3.5-5.0); Calcium 9.7 mg/dL (8.4-10.2); Potassium 4.4 mmol/L (3.5-5.1); Total Bilirubin 1.1 mg/dL (0.2-1.3); Total Protein 7.1 g/dL (6.3-8.2)
== END | disposition home or self-care (01) ==
LOC: LABPAT 09:40
PROVIDERS: ATTEND Surgery Plastic and Reconstructive Surgery
DX: Z01.810 Encounter for preprocedural cardiovascular examination (principal)
CPT/HCPCS: 80053; 85027

== ENCOUNTER 2021-04-22 06:09 | Inpatient (IN) | payer MEDICARE ==
[~2021-04-22 06:09] MED LIST: LIDOCAINE 1% (10MG/ML) FOR IV START INTRADERMA PRN; MIDAZOLAM 2 MG/2 ML VIAL IV PRN
[2021-04-22] MEDS: LACTATED RINGERS 1,000 ML IV SCH (06:48)
[2021-04-22 06:52] LABS: Glucose,Whole Blood 100 mg/dL (75-99)
[2021-04-22] MEDS ORDERED: PROPOFOL 10 MG/ML 20 ML VIAL IV ONE (07:04)
[2021-04-22 07:22] LABS: Basophils # (A) 0.1 k/uL (0-0.2); Basophils % (A) 2 %; Eosinophils # (A) 0.1 k/uL (0-0.7); Eosinophils % (A) 2 %; HCT 47.6 % (39.0-53.0); HGB 16.8 gm/dL (13.0-17.5); Lymphocytes # (A) 1.5 k/uL (1.0-4.8); Lymphocytes % (A) 23 %; MCH 34.3 pg (25.0-35.0); MCHC 35.3 g/dL (31.0-37.0); MCV 97.3 fL (80.0-100.0); Mean Platelet Volume 7.9; Monocytes # (A) 0.5 k/uL (0-1.0); Monocytes % (A) 7 %; Neutrophils # (A) 4.2 k/uL (1.3-7.7); Neutrophils % (A) 66 %; Platelet Count 126 k/uL (150-450); Poikilocytosis Slight; RDW 14.4 % (11.5-15.5); WBC 6.5 k/uL (3.8-10.6)
--- NOTE | 2021-04-22 07:22 | P.PCN ---
Date of Procedure: 04/22/21 Description of Procedure: PREOPERATIVE DIAGNOSIS: Diverticulitis POSTOPERATIVE DIAGNOSIS: Diverticulosis, sigmoid OPERATION: Colonoscopy to the cecum, ileocecal valve and appendiceal orifice. SURGEON: Florida Langston MD. ANESTHESIA: MAC. INDICATIONS: The patient is a 75-year-old female who presents for colonoscopy screening. Benefits and risks were described and informed consent was obtained. DESCRIPTION OF PROCEDURE: The patient had undergone Sutab prep. The patient had been brought into the operating room and laid in the left lateral decubitus position. After adequate intravenous sedation, the rectum was examined with 2% lidocaine jelly. External hemorrhoids were encountered. The rectal tone was within normal limits. No lesions were palpated in the rectal vault. An Olympus colonoscope was advanced until the cecum, ileocecal valve and appendiceal orifice were clearly viewed. The prep was excellent. Severe sigmoid diverticulosis was encountered between 15-40 cm from the anal verge. No colonic polyps were found. No evidence of focal colitis was found. Retroflexion of the scope demonstrated grade 3 internal hemorrhoids without active bleeding or inflammation. The colon was desufflated. The patient had tolerated the procedure well. Withdrawal time was over 6 minutes. FINDINGS: Aronchick preparation quality scale 1 (1-5) Internal hemorrhoids, grade 3 External prolapsed hemorrhoids, grade 3 Severe sigmoid diverticulosis 40-15 cm from the anal verge No arteriovenous malformations. No adenomatous polyps. No focal colitis. RECOMMENDATIONS: Lower endoscopy as needed For symptomatic sigmoid diverticulitis, robotic sigmoid colectomy described
[2021-04-22 07:27] LABS: INR 1.2 (<1.2); Prothrombin Time 12.1 sec (9.0-12.0)
--- NOTE | 2021-04-22 07:27 | P.GSHP ---
History of Present Illness H&P Date: 04/22/21 CHIEF COMPLAINT: Complicated sigmoid diverticulitis with abscess HISTORY OF PRESENT ILLNESS: The patient is a 75-year-old male with recent history of completed similar diverticulitis with abscess over 2 months ago. Was treated with IV antibiotics including PICC line upon discharge. He has not had prior colonoscopy to exclude underlying neoplasm. He presents for colonoscopy including sigmoid colon resection. PAST MEDICAL HISTORY: Please see list. PAST SURGICAL HISTORY: Please see list. MEDICATIONS: Please see list. ALLERGIES: Please see list. SOCIAL HISTORY: No illicit drug use FAMILY HISTORY: No reports of Crohn disease or ulcerative colitis. REVIEW OF ORGAN SYSTEMS: CONSTITUTIONAL: Denies any fever or chills. Intentional weight loss over 5 pounds on 2 week high protein low carbohydrate diet. HEENT: Denies any trouble with vision or nosebleeds. No difficulty swallowing. LYMPHATIC: The patient denies any lumps and bumps around the neck. ENDOCRINE: Denies any thyroid disorders. Denies diabetes type 2. RESPIRATORY: Has chronic bronchitis. No recent pneumonia. Has chronic obstructive pulmonary disease. Past tobacco abuse disorder. CARDIOVASCULAR: Has hypertensive heart disease. Has heart murmur. GASTROINTESTINAL: Has completed diverticulitis with abscess. GENITOURINARY: Has increased urinary frequency. As prostate disorder. MUSCULOSKELETAL: Has back pain, stiffness, joint arthritis. NEUROLOGIC: Denies any numbness or tingling along the distal extremities. Has migraine disorder. PSYCHIATRIC: Denies depression or suidical ideation. HEMATOLOGIC: Denies any abnormal bleeding or bruising. PHYSICAL EXAM: VITAL SIGNS: Stable GENERAL: Well-developed pleasant in no acute distress. HEENT: No scleral icterus. Extraocular movements grossly intact. Moist buccal mucosa. NECK: Supple without lymphadenopathy. CHEST: Unlabored respirations. Equal bilateral excursions. CARDIOVASCULAR: Regular rate and rhythm. Distal 2+ pulses. ABDOMEN: Soft, nontender, nondistended. MUSCULOSKELETAL: No clubbing, cyanosis, or edema. NERUO: Cranial nerves 2-12 grossly intact. PSYCH: Alert and oriented to person place and time. ASSESSMENT: 1. History of complicated diverticulitis with perforation and abscess 2. Morbid obesity, BMI 35.2 PLAN: 1. Benefits and risks of surgical robotic sigmoid resection was reviewed in detail. Robotic-assisted approach was also described. 2. Enhanced colon recovery program. 3. DVT prophylaxis. 4. Antibiotic prophylaxis. 5. Inpatient hospitalization greater than 2 nights. 6. Colonoscopy preoperatively described for neoplasm assessment 7. Patient is elevated risk for complication due to pre-existing complicated diverticulitis with intra-abdominal abscess Past Medical History Past Medical History: COPD, Hyperlipidemia, Osteoarthritis (OA), Prostate Disorder Additional Past Medical History / Comment(s): migraines, slight heart murmer, chronic bronchitis, diverticulitis, sinus issues can cause balance problems History of Any Multi-Drug Resistant Organisms: None Reported Past Surgical History: Cholecystectomy, Hernia Repair, Orthopedic Surgery Additional Past Surgical History / Comment(s): hernia x 3, left knee arthroscopy, , rt knee arthroscopy x 3, left thumb tendon surgery, rt arm and hand surgery to relieve nerve tension, left hip surgery x 3(reatachment of muscle and bursitis), haily cataracts Past Anesthesia/Blood Transfusion Reactions: No Reported Reaction Smoking Status: Former smoker - Past Family History Father Family Medical History: Unable to Obtain Mother Family Medical History: Cancer Additional Family Medical History / Comment(s): . Medications and Allergies Home Medications Medication Instructions Recorded Confirmed Type 5-Hydroxytryptophan (5-Htp) [5-Htp 100 mg PO HS 11/30/20 04/16/21 History Cr] Aspirin 162 mg PO DAILY 11/30/20 04/16/21 History Atorvastatin Calcium [Lipitor] 80 mg PO HS 11/30/20 04/16/21 History Cholecalciferol (Vitamin D3) 125 mcg PO DAILY 11/30/20 04/16/21 History [Vitamin D3 (5000 Iu)] Cinnamon Bark [Cinnamon] 1,000 mg PO W/LUNCH 11/30/20 04/16/21 History Clotrimazole Cream [Lotrimin Cream] 1 applic TOPICAL QAM 11/30/20 04/16/21 History Donepezil [Aricept] 10 mg PO DAILY 11/30/20 04/16/21 History Finasteride [Proscar] 5 mg PO HS 11/30/20 04/22/21 History L.acidoph,Paracasei, B.lactis 1 cap PO W/LUNCH 11/30/20 04/16/21 History [Probiotic] Montelukast [Singulair] 10 mg PO DAILY 11/30/20 04/16/21 History Multivitamins, Thera [Multivitamin 1 tab PO AC-SUPPER 11/30/20 04/16/21 History (formulary)] Propranolol [Inderal] 40 mg PO BID 11/30/20 04/16/21 History Terazosin [Hytrin] 5 mg PO BID 11/30/20 04/16/21 History Zinc Gluconate [Zinc] 50 mg PO DAILY 11/30/20 04/16/21 History Vitamin B Complex 1 each PO DAILY 04/16/21 04/16/21 History traZODone HCL [TraZODone HCl] 04/22/21 History Allergies Allergy/AdvReac Type Severity Reaction Status Date / Time No Known Allergies Allergy Verified 04/22/21 07:02 Surgical - Exam Vital Signs Temp Pulse Resp BP Pulse Ox 97.7 F 75 18 128/79 93 L 04/22/21 06:48 04/22/21 06:48 04/22/21 06:48 04/22/21 06:48 04/22/21 06:48 Results - Labs Abnormal Lab Results - Last 24 Hours (Table) 04/22/21 Range/Units 06:50 POC Glucose (mg/dL) 100 H (75-99) mg/dL
[2021-04-22 07:48] LABS: ALT 45 U/L (4-49); AST 44 U/L (17-59); African American GFR (CKD) >90 (>60 ml/min/1.73 sqM); Albumin 4.2 g/dL (3.5-5.0); Alkaline Phosphatase 50 U/L (38-126); Anion Gap 11 mmol/L; Blood Urea Nitrogen 16 mg/dL (9-20); Calcium 9.4 mg/dL (8.4-10.2); Carbon Dioxide 23 mmol/L (22-30); Chloride 105 mmol/L (98-107); Glucose 95 mg/dL (74-99); Non-African American GFR(CKD) 87 (>60 ml/min/1.73 sqM); Potassium 3.7 mmol/L (3.5-5.1); Sodium 139 mmol/L (137-145); Total Bilirubin 1.1 mg/dL (0.2-1.3); Total Protein 6.9 g/dL (6.3-8.2)
--- NOTE | 2021-04-22 08:26 | XR ---
EXAMINATION TYPE: XR chest 2V DATE OF EXAM: 04/22/2021 COMPARISON: NONE HISTORY: The TECHNIQUE: Frontal and lateral views of the chest are obtained. FINDINGS: There is no focal air space opacity, pleural effusion, or pneumothorax seen. The cardiac silhouette size is within normal limits. The osseous structures are intact. IMPRESSION: No acute cardiopulmonary process.
[2021-04-22] MEDS ORDERED: Antibiotics per Pharmacy 1 EACH MISC MISCELLANE PRN (16:00)
[2021-04-22] MEDS: MONTELUKAST 10 MG TAB PO SCH (16:18)
[2021-04-22] MEDS: PROPRANOLOL 40 MG TAB PO SCH ×2 (17:56→20:47)
[2021-04-22] MEDS: DOXAZOSIN 4 MG TAB PO SCH ×2 (17:56→20:47)
[2021-04-22] MEDS: NEOMYCIN 500 MG TAB PO SCH ×3 (17:57→20:49)
[2021-04-22] MEDS: metroNIDAZOLE 500 MG TAB PO SCH ×3 (17:57→20:48)
[2021-04-22] MEDS: DONEPEZIL 10 MG TAB PO SCH (18:02)
[2021-04-22] MEDS: FINASTERIDE 5 MG TAB PO SCH (20:47)
[2021-04-22] MEDS ORDERED: TEMAZEPAM 15 MG CAP PO ONE (21:00)
[2021-04-22] MEDS: ACETAMINOPHEN TAB 325 MG TAB PO PRN (21:32)
[2021-04-23] MEDS ORDERED: HYDROmorphone 1 MG/ML 1 ML SYRINGE IVP PRN (04:00)
[2021-04-23] MEDS ORDERED: metroNIDAZOLE-NS PMX 500 MG in SALINE 1 100ML.BAG IVPB PRN (05:00)
[2021-04-23] MEDS ORDERED: GABAPENTIN 300 MG CAP PO PRN (05:00)
[2021-04-23] MEDS: LACTATED RINGERS 1,000 ML IV SCH (05:28)
[2021-04-23] MEDS ORDERED: ACETAMINOPHEN TAB 500 MG TAB PO PRN ×2 (06:00→07:00)
[2021-04-23] MEDS ORDERED: ONDANSETRON 4 MG in SODIUM CHLORIDE 0.9% 50 ML IVPB PRN (06:00)
[2021-04-23] MEDS ORDERED: HEPARIN SODIUM,PORCINE/PF 5,000 UNIT/0.5 ML SYRINGE SQ PRN (06:00)
[2021-04-23] MEDS ORDERED: ALVIMOPAN 12 MG CAPSULE PO PRN ×2 (07:00)
[2021-04-23] MEDS ORDERED: MELOXICAM 7.5 MG TAB PO PRN (07:00)
[2021-04-23 07:04] LABS: Basophils % (A) 0 %; Eosinophils # (A) 0.1 k/uL (0-0.7); Eosinophils % (A) 2 %; HCT 47.8 % (39.0-53.0); HGB 15.4 gm/dL (13.0-17.5); Hypochromasia Slight; Lymphocytes # (A) 0.7 k/uL (1.0-4.8); Lymphocytes % (A) 10 %; MCH 31.8 pg (25.0-35.0); MCHC 32.1 g/dL (31.0-37.0); MCV 98.9 fL (80.0-100.0); Mean Platelet Volume 7.9; Monocytes # (A) 0.3 k/uL (0-1.0); Monocytes % (A) 5 %; Neutrophils % (A) 82 %; Platelet Count 112 k/uL (150-450); RBC 4.84 m/uL (4.30-5.90); WBC 7.3 k/uL (3.8-10.6)
[2021-04-23 07:23] LABS: ALT 39 U/L (4-49); AST 42 U/L (17-59); African American GFR (CKD) >90 (>60 ml/min/1.73 sqM); Albumin 3.4 g/dL (3.5-5.0); Albumin/Globulin Ratio 1.4; Alkaline Phosphatase 47 U/L (38-126); Anion Gap 5 mmol/L; Blood Urea Nitrogen 9 mg/dL (9-20); Carbon Dioxide 26 mmol/L (22-30); Chloride 110 mmol/L (98-107); Globulin 2.5 g/dL; Glucose 91 mg/dL (74-99); Non-African American GFR(CKD) 89 (>60 ml/min/1.73 sqM); Potassium 4.3 mmol/L (3.5-5.1); Sodium 141 mmol/L (137-145); Total Bilirubin 1.1 mg/dL (0.2-1.3); Total Protein 5.9 g/dL (6.3-8.2)
[2021-04-23] MEDS: DONEPEZIL 10 MG TAB PO SCH (08:52)
[2021-04-23] MEDS: TAMSULOSIN 0.4 MG CAP.ER.24H PO SCH (08:52)
[2021-04-23] MEDS: MONTELUKAST 10 MG TAB PO SCH (08:52)
[2021-04-23] MEDS: PROPRANOLOL 40 MG TAB PO SCH ×2 (08:53→21:20)
[2021-04-23] MEDS: DOXAZOSIN 4 MG TAB PO SCH ×2 (08:53→21:20)
[2021-04-23] MEDS: CLOTRIMAZOLE 1% CREAM 30 GM TUBE TOPICAL SCH (09:14)
--- NOTE | 2021-04-23 10:54 | P.PN ---
Subjective Progress Note Date: 04/23/21 CHIEF COMPLAINT: Symptomatic diverticulitis HISTORY OF PRESENT ILLNESS: The patient is a 75-year-old male admitted with personal history of since minute diverticulitis. He underwent colonoscopy yeste rd without findings of neoplasm. He has been able to tolerate his prep. No reports abdominal pain. ROS: No reports of nausea and vomiting. No bowel movements. No fevers or chills. No new chest pain. No productive sputum PHYSICAL EXAM: VITAL SIGNS: Reviewed CONSTITUTIONAL: Well developed and in no acute distress. EYES: Conjuctivae without sclera icterus. Extraocular movements grossly intact. HEAD, EARS, NOSE, THROAT: Moist buccal mucosa. Head is atraumatic, normocephalic. Hears conversational speech. No nasal drainage. NECK: No gross thyroidomegaly. No jugular venous distention. RESPIRATORY: Non-labored respirations and equal bilateral excursions. CARDIOVASCULAR: Palpable 2+ radial pulses. Regular rate. Regular rhythm. ABDOMEN: No peritonitis. Nontender. MUSCULOSKELETAL: No gross deformity of the lower extremities noted. No clubbing. No cyanosis. SKIN: Good skin turgor. Well perfused. NEUROLOGIC: Cranial nerves II through XII grossly intact. No focal or latera lizing signs. PSYCH: Appropriate affect. Alert and oriented to person, place and time. CLINICAL LABS: White blood cell count normal STUDIES: Chest x-ray reviewed and unremarkable. This is my independent interpretation. ASSESSMENT: 1. Diverticulitis, sigmoid colon prior perforated PLAN: 1. Robotic sigmoid colectomy described. 2. Patient elevated risk due to prior history of intra-abdominal abscess Objective - Vital Signs Vital signs: Vital Signs Temp 98.6 F 04/23/21 08:00 Pulse 86 04/23/21 08:00 Resp 16 04/23/21 08:00 BP 113/58 04/23/21 08:00 Pulse Ox 94 L 04/23/21 08:00 Intake & Output 04/22/21 04/23/21 04/23/21 18:59 06:59 18:59 Intake Total 1000 Balance 1000 Weight 104.5 kg Intake: IV 1000 Other: Voiding Method Toilet # Voids 1 - Labs CBC & Chem 7: 04/23/21 06:48 04/23/21 06:48 Labs: Abnormal Lab Results - Last 24 Hours (Table) 04/23/21 04/23/21 Range/Units 06:48 06:48 Plt Count 112 L (150-450) k/uL Lymphocytes # 0.7 L (1.0-4.8) k/uL Chloride 110 H (98-107) mmol/L Total Protein 5.9 L (6.3-8.2) g/dL Albumin 3.4 L (3.5-5.0) g/dL Assessment and Plan (1) Diverticulitis large intestine Current Visit: Yes Status: Acute Code(s): K57.32 - DVTRCLI OF LG INT W/O PERFORATION OR ABSCESS W/O BLEEDING SNOMED Code(s): 0995886
[2021-04-23] MEDS ORDERED: IV FLUID CONTINUATION 700 ML IV ONE (13:22)
[2021-04-23] MEDS ORDERED: ONDANSETRON 4 MG/2 ML VIAL IVP ONE (13:34)
[2021-04-23] MEDS ORDERED: DEXAMETHASONE SOD PHOSPHATE 4 MG/ML 1 ML VIAL IVP ONE (13:35)
[2021-04-23 13:44] VITALS: BMI 29.5
[2021-04-23] MEDS ORDERED: MIDAZOLAM 2 MG/2 ML VIAL IVP ONE ×2 (13:53→13:55)
--- NOTE | 2021-04-23 14:19 | P.ANPRN ---
Procedure Note - Anesthesia - Nerve Block Performed Bilateral Erector Spinae Single Time Out Performed: Yes Date of Procedure: 04/23/21 Procedure Start Time: 13:54 Procedure Stop Time: 14:09 Location of Patient: PreOp Indication: Acute Post-Operative Pain, Requested by Surgeon Sedation Type: Sedate with meaningful contact maintained Preparation: Sterile Prep, Sterile Dressing Position: Prone Catheter: None Needle Types: Pajunk Needle Gauge: 20 Ultrasound used to visualize needle placement: Yes Ultrasound used to observe medication spread: Yes Injectate: 0.5% Ropivacaine (see comment for volume) (15 ml per side. Decadron 4 mg per side) Blood Aspirated: No Pain Paresthesia on Injection Noted: No Resistance on Injection: Normal Image Stored and Saved: Yes Events: Uneventful and Well Tolerated
[2021-04-23] MEDS ORDERED: SODIUM CHLORIDE 0.9% (PF) 10 ML VIAL ONE (16:00)
[2021-04-23] MEDS ORDERED: NEOSTIGMINE 1 MG/ML 10 ML VIAL ONE (16:00)
[2021-04-23] MEDS ORDERED: ROCURONIUM 10 MG/ML (5 ML VIAL) IV ONE (16:00)
[2021-04-23] MEDS ORDERED: GLYCOPYRROLATE 0.2 MG/ML 2 ML VIAL ONE (16:00)
[2021-04-23] MEDS ORDERED: fentaNYL (PF) 50 MCG/ML 2 ML AMP ONE (16:00)
[2021-04-23] MEDS ORDERED: PHENYLEPHRINE-0.9% NACL SYG 1,000 MCG/10 ML SYRINGE ONE (16:00)
[2021-04-23] MEDS ORDERED: LIDOCAINE 1% INJ 10MG/ML (20 ML MDV) ONE (16:00)
[2021-04-23] MEDS ORDERED: HYDROmorphone (PF) 1 MG/ML ONE (16:00)
[2021-04-23] MEDS ORDERED: MIDAZOLAM 2 MG/2 ML VIAL ONE (16:00)
[2021-04-23] MEDS ORDERED: KETAMINE 10 MG/ML 20 ML VIAL ONE (16:00)
[2021-04-23] MEDS ORDERED: ROPIVACAINE 5 MG/ML 30 ML VIAL ONE (16:00)
[2021-04-23] MEDS ORDERED: SUCCINYLCHOLINE CHLORIDE 100 MG/5 ML SYR IV ONE (16:00)
[2021-04-23] MEDS ORDERED: DEXAMETHASONE SOD PHOSPHATE 4 MG/ML 1 ML VIAL ONE (16:00)
[2021-04-23] MEDS ORDERED: LIDOCAINE 1%-EPI 1:100,000 20 ML VIAL SQ ONE (17:07)
[2021-04-23] MEDS ORDERED: LACTATED RINGERS 1,000 ML IV ONE (17:56)
[2021-04-23] MEDS ORDERED: BENZOCAINE/MENTHOL LOZENG 1 EACH LOZENGE MUCOUS MEM PRN (20:15)
--- NOTE | 2021-04-23 20:32 | P.OP ---
Date of Procedure: 04/23/21 Description of Procedure: SURGEON: MARCOS WARNER MD PREOPERATIVE DIAGNOSES: 1. History of complicated sigmoid diverticulitis with perforation and intra- abdominal abscess 2. Hypertensive heart disease 3. 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 Chronic migraines 5. Hyperlipidemia 6. Chronic obstructive pulmonary disease with bronchitis 7. Past tobacco abuse POSTOPERATIVE DIAGNOSES: 1. History of complicated sigmoid diverticulitis with perforation and intra- abdominal abscess 2. Hypertensive heart disease 3. 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 Chronic migraines 5. Hyperlipidemia 6. Chronic obstructive pulmonary disease with bronchitis 7. Past tobacco abuse 8. Intrapelvic adhesions OPERATION: 1. Robotic-assisted daVinci Xi laparoscopic lysis of adhesions 2. Robotic-assisted daVinci Xi laparoscopic with sigmoid colectomy and low anterior resection using 29mm EEA Ethicon powered stapler 3. Intraoperative colonoscopy for flexible sigmoidoscopy Anesthesia: GETA, local, regional Estimated Blood Loss (ml): 20 Pathology: other (Sigmoid colon, anastomosis) Condition: stable Disposition: floor COMPLICATIONS: None. Operative Findings: 1. Severe sigmoid diverticulosis with pelvic adhesions INDICATIONS: The patient is a 75-year-old male with complicated history of ruptured sigmoid diverticulitis with intra-abdominal abscess. He was treated with antibiotics. Surgical intervention was described. Benefits and risks, including infection, bowel injury, ureteral injury, colostomy creation and possibility for additional surgery was discussed at length. Informed consent was obtained. All questions of the patient and family were answered. DESCRIPTION: Earlier the patient had undergone a bowel prep using the enhanced colon recovery program. The patient was transferred to the operating room onto a split leg table and repositioned to modified lithotomy following intubation. A Meléndez catheter was placed. The abdomen was then prepped and draped in standard sterile fashion as Ioban was placed along the abdomen to minimize any contamination of skin floor. After a timeout protocol was performed, attention was then brought to the left upper quadrant whereby a 0 degree 5 mm laparoscopic trocar entry was performed. The abdominal cavity was entered and insufflated to 15 mmHg pressure, which was tolerated well. Diagnostic laparoscopy confirmed severe adhesions omentum to abdominal wall involving the right upper quadrant, midline, epigastrium. Next trocars were placed 20 cm superior from the pelvis. A 12-mm trocar was placed along the right lateral abdominal wall. A 8 mm port was placed along the right upper quadrant. Ports were placed 10 cm apart from each other including 15-20 cm away from the target anatomy of the left pelvis. An 8-mm port was was placed along the left upper quadrant. The stapler 12-mm port was arranged along the left lateral abdominal wall. The patient was then placed in Trendelenburg position, at least 21. The robotic da Carlos XI system was primed. The robot was docked from the right side of the patient. Using atraumatic graspers and vessel sealer, the robotic system was docked and primed as described. Instruments were interchanged by the training program assistant including needle local company flatbed truck driver, clip automation technician, spatula, robotic stapler and vessel sealer. The robot stapler was prepared along the right lateral abdominal wall. Initial attention was brought to lysis of adhesions involving the pelvis. Lysis of adhesions was performed using vessel sealer for over 30 minutes. Next, attention was brought to sigmoid colon. The sigmoid mesentery was mobilized using a vessel sealer and spatula along the white line of Toldt involving the descending colon. Using robot stapler 60 mm green loads, the descending colon was divided. Mobilization of the colon was performed to the pelvic brim along the sacral promontory. The mesentery of the sigmoid colon was mobilized towards the descending colon using a vessel sealer. Next, the top of the rectum was divided using robotic stapler 60 mm black loads. The rest of the sigmoid colon mesentery was mobilized using vessel sealer. Additionally, the sigmoid colon was mobilized onto the colon to minimize injury to the ureters. I went to the foot of the bed for selection of a sizer. A colorectal colon anastomosis with an EEA 29-mm was selected after using a sizer along the rectum. For the proximal sigmoid colon, a 29-mm anvil was placed after creating a colotomy then closed using a stapler at the distal end. The robot arms were temporarily undocked. A stapler was entered along the rectum and mated to the anvil for 1 minute. The anastomosis was created. The donuts were thick on the rectum side and then on the colon side. I then performed a bedside flexible sigmoidoscopy using colonoscope where no leaks or defects were confirmed as the training program assistant placed normal saline along the pelvis. I re-scrubbed into the case. Irrigation fluid was suctioned from the abdomen. The robot was undocked. All needles were removed from the abdominal cavity. Via the left lateral 12-mm trocar site, the resected colon was retrieved after widening the skin incision to 3-cm. The fascial defect was oversewn using 0 Vicryl and a Chadwick Tyson. All incisions were cleansed using dilute normal saline and hydrogen peroxide mixture. Next all pneumoperitoneum was evacuated from the abdominal cavity. The 8-mm trocar sites were reapproximated using 4-0 Monocryl in an interrupted subcuticular fashion. Local anesthetic was infiltrated to all wounds for postop analgesia. All incisions were also cleansed with diluted hydrogen peroxide. An Optifoam surgical dressing was placed over the colon extraction site. Exofin was applied to the rest of the skin incisions. The patient was extubated successfully. The patient was transferred to the postanesthesia care unit in stable condition. The patient's was updated via telephone voicemail left.
[2021-04-23] MEDS: FINASTERIDE 5 MG TAB PO SCH (21:19)
[2021-04-23] MEDS: SODIUM CHLORIDE 0.9% 1,000 ML IV SCH (21:20)
[2021-04-24] MEDS: metroNIDAZOLE-NS PMX 500 MG in SALINE 1 100ML.BAG IVPB SCH ×3 (00:55→15:51)
[2021-04-24] MEDS: SODIUM CHLORIDE 0.9% 1,000 ML IV SCH ×2 (05:26→11:09)
[2021-04-24 08:52] LABS: Basophils # (A) 0.01 X 10*3/uL (0.00-0.10); Basophils % (A) 0.1 %; Eosinophils # (A) 0 X 10*3/uL (0.04-0.35); Eosinophils % (A) 0 %; HCT 44.6 % (39.6-50.0); Lymphocytes # (A) 0.65 X 10*3/uL (0.90-5.00); Lymphocytes % (A) 5.6 %; MCH 32.1 pg (27.0-32.0); MCHC 33.6 g/dL (32.0-37.0); MCV 95.3 fL (80.0-97.0); Mean Platelet Volume 10.8 fL (9.5-12.2); Monocytes # (A) 0.32 X 10*3/uL (0.20-1.00); Monocytes % (A) 2.8 %; Neutrophils # (A) 10.51 X 10*3/uL (1.80-7.70); Platelet Count 120 X 10*3/uL (140-440); RBC 4.68 X 10*6/uL (4.40-5.60); RDW 12.4 % (11.5-14.5); WBC 11.55 X 10*3/uL (4.50-10.00)
[2021-04-24] MEDS ORDERED: ALVIMOPAN 12 MG CAPSULE PO SCH (09:00)
[2021-04-24] MEDS ORDERED: ENOXAPARIN 30 MG/0.3 ML SYRINGE SQ SCH (09:00)
[2021-04-24] MEDS: TAMSULOSIN 0.4 MG CAP.ER.24H PO SCH (10:06)
[2021-04-24] MEDS: DONEPEZIL 10 MG TAB PO SCH (10:06)
[2021-04-24] MEDS: MONTELUKAST 10 MG TAB PO SCH (10:06)
[2021-04-24] MEDS: DOXAZOSIN 4 MG TAB PO SCH (10:07)
[2021-04-24] MEDS: PROPRANOLOL 40 MG TAB PO SCH (10:07)
[2021-04-24] MEDS: CLOTRIMAZOLE 1% CREAM 30 GM TUBE TOPICAL SCH (10:08)
[2021-04-24 13:43] LABS: African American GFR (CKD) 101.3 (60.0-200.0); Anion Gap 10.8 mmol/L (4.00-12.00); Calcium 8.6 mg/dL (8.7-10.3); Carbon Dioxide 22.2 mmol/L (21.6-31.8); Non-African American GFR(CKD) 87.4 (60.0-200.0)
--- NOTE | 2021-04-24 13:54 | P.PN ---
Subjective Progress Note Date: 04/24/21 CHIEF COMPLAINT: Symptomatic diverticulitis HISTORY OF PRESENT ILLNESS: The patient is a 75-year-old male admitted with history of complicated diverticulitis with abscess of the sigmoid colon. He stat us post robotic sigmoid colectomy, 04/23/21. He is tolerating diet. Pain is well controlled. 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 ROS: No reports of nausea and vomiting. No bowel movements. No fevers or chills. No new chest pain. No productive sputum PHYSICAL EXAM: VITAL SIGNS: Reviewed CONSTITUTIONAL: Well developed and in no acute distress. EYES: Conjuctivae without sclera icterus. Extraocular movements grossly intact. HEAD, EARS, NOSE, THROAT: Moist buccal mucosa. Head is atraumatic, normocephalic. Hears conversational speech. No nasal drainage. NECK: No gross thyroidomegaly. No jugular venous distention. RESPIRATORY: Non-labored respirations and equal bilateral excursions. CARDIOVASCULAR: Palpable 2+ radial pulses. Regular rate. Regular rhythm. ABDOMEN: No peritonitis. Incisions clean, dry and intact. MUSCULOSKELETAL: No gross deformity of the lower extremities noted. No clubbing. No cyanosis. SKIN: Good skin turgor. Well perfused. NEUROLOGIC: Cranial nerves II through XII grossly intact. No focal or lateralizing signs. PSYCH: Appropriate affect. Alert and oriented to person, place and time. CLINICAL LABS: White blood cell count elevated over 11,000 to be expected post surgical response. ASSESSMENT: 1. Diverticulitis, sigmoid colon prior perforation 2. Pre-existing obstructive uropathy PLAN: 1. Await void 2. Advance to full liquid diet 3. Low fiber diet described upon discharge 4. Discharge instructions reviewed. Objective - Vital Signs Vital signs: Vital Signs Temp 99.0 F 04/24/21 06:11 Pulse 81 04/24/21 06:11 Resp 15 04/24/21 06:11 BP 103/64 04/24/21 06:11 Pulse Ox 94 L 04/24/21 06:11 Intake & Output 04/23/21 04/24/21 04/24/21 18:59 06:59 18:59 Intake Total 1550 Output Total 470 200 Balance 1550 -470 -200 Weight 104.5 kg Intake: IV 1550 Output: Urine 450 200 Uretheral (Meléndez) 200 Estimated Blood Loss 20 Other: Voiding Method Toilet Indwelling Catheter Indwelling Catheter - Labs CBC & Chem 7: 04/24/21 06:12 04/24/21 06:12 Labs: Abnormal Lab Results - Last 24 Hours (Table) 04/24/21 04/24/21 Range/Units 06:12 06:12 WBC 11.55 H (4.50-10.00) X 10*3/uL MCH 32.1 H (27.0-32.0) pg Plt Count 120 L (140-440) X 10*3/uL Immature Gran # 0.06 H (0.00-0.04) X 10*3/uL Neutrophils # 10.51 H (1.80-7.70) X 10*3/uL Lymphocytes # 0.65 L (0.90-5.00) X 10*3/uL Eosinophils # 0 L (0.04-0.35) X 10*3/uL Glucose 150 H (70-110) mg/dL Calcium 8.6 L (8.7-10.3) mg/dL Assessment and Plan (1) Diverticulitis large intestine Current Visit: Yes Status: Acute Code(s): K57.32 - DVTRCLI OF LG INT W/O PER FORATION OR ABSCESS W/O BLEEDING SNOMED Code(s): 4442468 (2) Diverticulitis of large intestine with abscess Current Visit: Yes Status: Acute Code(s): K57.20 - DVTRCLI OF LG INT W PERFORATION AND ABSCESS W/O BLEEDING SNOMED Code(s): 5374408 (3) Diverticulitis of colon with perforation Current Visit: No Status: Acute Code(s): K57.20 - DVTRCLI OF LG INT W PERFORATION AND ABSCESS W/O BLEEDING SNOMED Code(s): 9931230
--- NOTE | 2021-04-24 14:34 | P.DS ---
Providers Date of admission: 04/23/21 20:15 Expected date of discharge: 04/24/21 Attending physician: Florida Langston Primary care physician: Ab Hutton - Discharge Diagnosis(es) (1) Diverticulitis large intestine Current Visit: Yes Status: Acute (2) Diverticulitis of large intestine with abscess Current Visit: Yes Status: Acute (3) Diverticulitis of colon with perforation Current Visit: No Status: Acute Hospital Course: POSTOPERATIVE DIAGNOSES: 1. History of complicated sigmoid diverticulitis with perforation and intra- abdominal abscess 2. Hypertensive heart disease 3. 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 Chronic migraines 5. Hyperlipidemia 6. Chronic obstructive pulmonary disease with bronchitis 7. Past tobacco abuse 8. Intrapelvic adhesions COURSE: The patient is a 75-year-old male admitted with history of complicated diverticulitis with abscess of the sigmoid colon. He status post robotic sigmoid colectomy, 04/23/21. He is tolerating diet. Pain is well controlled. He has pre- existing history of obstructive uropathy due to prostate disorder. He has been able to void over 400 mL following removal of Meléndez catheter. ROS: No reports of nausea and vomiting. No bowel movements. No fevers or chills. No new chest pain. No productive sputum PHYSICAL EXAM: VITAL SIGNS: Reviewed CONSTITUTIONAL: Well developed and in no acute distress. EYES: Conjuctivae without sclera icterus. Extraocular movements grossly intact. HEAD, EARS, NOSE, THROAT: Moist buccal mucosa. Head is atraumatic, normocephalic. Hears conversational speech. No nasal drainage. NECK: No gross thyroidomegaly. No jugular venous distention. RESPIRATORY: Non-labored respirations and equal bilateral excursions. CARDIOVASCULAR: Palpable 2+ radial pulses. Regular rate. Regular rhythm. ABDOMEN: No peritonitis. Incisions clean, dry and intact. MUSCULOSKELETAL: No gross deformity of the lower extremities noted. No clubbing. No cyanosis. SKIN: Good skin turgor. Well perfused. NEUROLOGIC: Cranial nerves II through XII grossly intact. No focal or lateralizing signs. PSYCH: Appropriate affect. Alert and oriented to person, place and time. CLINICAL LABS: White blood cell count elevated over 11,000 to be expected post surgical response. ASSESSMENT: 1. Diverticulitis, sigmoid colon prior perforation 2. Pre-existing obstructive uropathy PLAN: 1. Discharge on protein shake diet. 2. Colectomy diet including activities reviewed Patient Condition at Discharge: Good Plan - Discharge Summary Discharge Rx Participant: Yes New Discharge Prescriptions: New Simethicone [Gas-X] 125 mg PO AC-TID PRN #20 cap PRN Reason: Pain Ibuprofen [Motrin] 600 mg PO Q8HR PRN #30 tab PRN Reason: Pain Acetaminophen Tab [Tylenol Tab] 1,000 mg PO Q6HR PRN #30 tablet PRN Reason: Pain Continue Multivitamins, Thera [Multivitamin (formulary)] 1 tab PO AC-SUPPER L.acidoph,Paracasei, B.lactis [Probiotic] 1 cap PO W/LUNCH Finasteride [Proscar] 5 mg PO HS Atorvastatin Calcium [Lipitor] 80 mg PO HS Propranolol [Inderal] 40 mg PO BID Montelukast [Singulair] 10 mg PO DAILY Zinc Gluconate [Zinc] 50 mg PO DAILY Donepezil [Aricept] 10 mg PO DAILY Cholecalciferol (Vitamin D3) [Vitamin D3 (5000 Iu)] 125 mcg PO DAILY Aspirin 162 mg PO DAILY Vitamin B Complex 1 each PO DAILY traZODone HCL Clotrimazole Cream [Lotrimin Cream] 1 applic TOPICAL QAM Terazosin [Hytrin] 5 mg PO BID Discontinued Cinnamon Bark [Cinnamon] 1,000 mg PO W/LUNCH 5-Hydroxytryptophan (5-Htp) [5-Htp Cr] 100 mg PO HS Discharge Medication List Aspirin 162 mg PO DAILY 11/30/20 [History] Atorvastatin Calcium [Lipitor] 80 mg PO HS 11/30/20 [History] Cholecalciferol (Vitamin D3) [Vitamin D3 (5000 Iu)] 125 mcg PO DAILY 11/30/20 [History] Clotrimazole Cream [Lotrimin Cream] 1 applic TOPICAL QAM 11/30/20 [History] Donepezil [Aricept] 10 mg PO DAILY 11/30/20 [History] Finasteride [Proscar] 5 mg PO HS 11/30/20 [History] L.acidoph,Paracasei, B.lactis [Probiotic] 1 cap PO W/LUNCH 11/30/20 [History] Montelukast [Singulair] 10 mg PO DAILY 11/30/20 [History] Multivitamins, Thera [Multivitamin (formulary)] 1 tab PO AC-SUPPER 11/30/20 [History] Propranolol [Inderal] 40 mg PO BID 11/30/20 [History] Terazosin [Hytrin] 5 mg PO BID 11/30/20 [History] Zinc Gluconate [Zinc] 50 mg PO DAILY 11/30/20 [History] Vitamin B Complex 1 each PO DAILY 04/16/21 [History] traZODone HCL 04/22/21 [History] Acetaminophen Tab [Tylenol Tab] 1,000 mg PO Q6HR PRN #30 tablet 04/24/21 [Rx] Ibuprofen [Motrin] 600 mg PO Q8HR PRN #30 tab 04/24/21 [Rx] Simethicone [Gas-X] 125 mg PO AC-TID PRN #20 cap 04/24/21 [Rx] Follow up Appointment(s)/Referral(s): Florida Langston MD [STAFF PHYSICIAN] - 04/27/21 (Please call at 8 AM to confirm time) Patient Instructions/Handouts: *Sur[facility] - (Anesthesia) Endoscopy Discharge Instructions, *[facility] - (Anesthesia) Discharge Instructions Outpatient Surgery, Colectomy (DC), Laparoscopic Bowel Resection (IP), Colectomy Diet (DC) Activity/Diet/Wound Care/Special Instructions: CONTINUE PROTEIN SHAKE DIET UNTIL SEEN IN THE OFFICE FOR YOUR SAFETY. Wear abdominal binder at all times for comfort. No lifting over 4 pounds in 4 weeks until May 23. December shower. No bath tub soaks for two weeks until May 07. Avoid steak, tough meats and seeds such as raspberry seeds until May [address] while on narcotics. Use Tylenol and ibuprofen scheduled for the next 24-48 hours for best pain relief. Use ice along incisions for today to prevent swelling. Discharge Disposition: HOME SELF-CARE
[2021-04-24] MEDS: ACETAMINOPHEN TAB 325 MG TAB PO PRN (17:18)
[2021-04-24 19:18] VITALS: BP 97/58; PULSE 78; RESP 16; TEMP 98.2
--- NOTE | 2021-04-25 11:29 | P.PN ---
Progress Note - Text Progress Note Date: 04/25/21 Patient called at home. Patient reports that he had chicken including carrots yesterday. This morning he had a power shape. Reports mild increased cramping. No bowel movement. He has not obtained his prescriptions from his local pharmacy. Expectation of blood and initial bowel movement described. Patient advised to limit to liquid diet with warm beverages. Ambulation encouraged. Patient encouraged to take his medication including Gas-X, ibuprofen and acetaminophen scheduled for the next 2 days
== END 2021-04-24 19:38 | disposition home or self-care (01) | DRG 331 ==
LOC: ORWHC2ENDO 06:09 → 4SSUR 07:13 → ORWHC2ENDO 04-23 20:15
PROVIDERS: ADMIT Surgery Plastic and Reconstructive Surgery; ATTEND Surgery Plastic and Reconstructive Surgery
PROC: 0DNN4ZZ Release Sigmoid Colon, Percutaneous Endoscopic Approach (ICD-10-PCS; 2021-04-23)
PROC: 0DTP4ZZ Resection of Rectum, Percutaneous Endoscopic Approach (ICD-10-PCS; 2021-04-23)
PROC: 0DJD8ZZ Inspection of Lower Intestinal Tract, Via Natural or Artificial Opening Endoscopic (ICD-10-PCS; 2021-04-23)
PROC: 8E0W4CZ Robotic Assisted Procedure of Trunk Region, Percutaneous Endoscopic Approach (ICD-10-PCS; 2021-04-23)
PROC: 0DTN0ZZ Resection of Sigmoid Colon, Open Approach (ICD-10-PCS; principal; 2021-04-23 12:50)
DX: K57.20 Diverticulitis of large intestine with perforation and abscess without bleeding (principal); E66.01 Morbid (severe) obesity due to excess calories; E78.5 Hyperlipidemia, unspecified; G43.909 Migraine, unspecified, not intractable, without status migrainosus; I11.9 Hypertensive heart disease without heart failure; J44.9 Chronic obstructive pulmonary disease, unspecified; K64.8 Other hemorrhoids; K66.0 Peritoneal adhesions (postprocedural) (postinfection); N13.9 Obstructive and reflux uropathy, unspecified; N42.9 Disorder of prostate, unspecified; Z68.35 Body mass index [BMI] 35.0-35.9, adult; Z79.82 Long term (current) use of aspirin; Z79.899 Other long term (current) drug therapy; Z87.891 Personal history of nicotine dependence; K64.2 Third degree hemorrhoids; M19.90 Unspecified osteoarthritis, unspecified site
CPT/HCPCS: 45378; 64999; 71046; 76942; 80048; 80053; 85025; 85610; 86850; 86900; 86901; 88307

== ENCOUNTER 2021-12-31 05:51 | Day surgery (SDC) | payer MEDICARE ==
[2021-12-29 14:39] VITALS: BMI 30.8
[~2021-12-31 05:51] MED LIST changes: +HEPARIN SODIUM,PORCINE/PF 5,000 UNIT/0.5 ML SYRINGE SQ PRN; -LIDOCAINE 1% (10MG/ML) FOR IV START INTRADERMA PRN; -MIDAZOLAM 2 MG/2 ML VIAL IV PRN
[2021-12-31] MEDS ORDERED: ONDANSETRON 4 MG/2 ML VIAL IVP ONE (06:08)
[2021-12-31] MEDS ORDERED: LACTATED RINGERS 1,000 ML IV SCH (06:08)
[2021-12-31] MEDS ORDERED: DEXAMETHASONE SOD PHOSPHATE 4 MG/ML 1 ML VIAL IV ONE (06:08)
[2021-12-31] MEDS ORDERED: LIDOCAINE 1% (10MG/ML) FOR IV START INTRADERMA PRN (06:08)
--- NOTE | 2021-12-31 06:13 | P.GSHP ---
History of Present Illness H&P Date: 12/31/21 CHIEF COMPLAINT: Inguinal hernia, left HISTORY OF PRESENT ILLNESS: The patient is a 76-year-old male who presents with a history of swelling and pain along the bilateral groin for over 1 month. He's noted increased swelling including pain of the area. Now he presents for repair of his inguinal hernia. PAST MEDICAL HISTORY: Please see list. PAST SURGICAL HISTORY: Please see list. MEDICATIONS: Please see list. ALLERGIES: Please see list. SOCIAL HISTORY: No illicit drug use FAMILY HISTORY: No reports of Crohn disease or ulcerative colitis. REVIEW OF ORGAN SYSTEMS: CONSTITUTIONAL: No reports of fevers or chills. No reports of weight loss despite prior attempts. GI: Has change in bowel habits PHYSICAL EXAM: VITAL SIGNS: Stable GENERAL: Well-developed pleasant male in no acute distress. HEENT: No scleral icterus. Extraocular movements grossly intact. Moist buccal mucosa. NECK: Supple without lymphadenopathy. CHEST: Unlabored respirations. Equal bilateral excursions. CARDIOVASCULAR: Regular rate and rhythm. Distal 2+ pulses. ABDOMEN: Soft, nondistended. No peritoneal signs. Palpable defect of the bilateral groin. MUSCULOSKELETAL: No clubbing, cyanosis, or edema. ASSESSMENT: 1. Inguinal hernia, bilateral PLAN: 1. Recommend proceeding with a robotic bilateral inguinal repair with mesh. 2. Benefits and risks of surgical intervention was discussed including possibility of open technique. 3. DVT prophylaxis. 4. Antibiotic prophylaxis. 5. He is at elevated risk for complications with incarcerated sigmoid colon of the left groin Past Medical History Past Medical History: COPD, GERD/Reflux, Osteoarthritis (OA), Prostate Disorder Additional Past Medical History / Comment(s): migraines, heart murmer, chronic bronchitis, diverticulitis, History of Any Multi-Drug Resistant Organisms: None Reported Past Surgical History: Cholecystectomy, Hernia Repair, Orthopedic Surgery Additional Past Surgical History / Comment(s): hernia x 3, left knee arthroscopy, , rt knee arthroscopy x 3, left thumb tendon surgery, rt arm and hand surgery to relieve nerve tension, left hip surgery x 3(reatachment of muscle and bursitis), haily cataracts,"nasal endoscopy", "haily brow lift" Past Anesthesia/Blood Transfusion Reactions: No Reported Reaction Smoking Status: Former smoker - Past Family History Mother Family Medical History: Cancer Medications and Allergies Home Medications Medication Instructions Recorded Confirmed Type Aspirin 162 mg PO DAILY 11/30/20 12/29/21 History Atorvastatin Calcium [Lipitor] 80 mg PO HS 11/30/20 12/29/21 History Cholecalciferol (Vitamin D3) 125 mcg PO DAILY 11/30/20 12/29/21 History [Vitamin D3 (5000 Iu)] Clotrimazole Cream [Lotrimin Cream] 1 applic TOPICAL QAM PRN 11/30/20 12/29/21 History Donepezil [Aricept] 10 mg PO DAILY 11/30/20 12/29/21 History Finasteride [Proscar] 5 mg PO HS 11/30/20 12/29/21 History L.acidoph,Paracasei, B.lactis 1 cap PO W/LUNCH 11/30/20 12/29/21 History [Probiotic] Montelukast [Singulair] 10 mg PO DAILY 11/30/20 12/29/21 History Multivitamins, Thera [Multivitamin 1 tab PO AC-SUPPER 11/30/20 12/29/21 History (formulary)] Propranolol [Inderal] 40 mg PO BID 11/30/20 12/29/21 History Terazosin [Hytrin] 5 mg PO BID 11/30/20 12/29/21 History Zinc Gluconate [Zinc] 50 mg PO DAILY 11/30/20 12/29/21 History Vitamin B Complex 1 each PO DAILY 04/16/21 12/29/21 History Ibuprofen [Motrin] 600 mg PO Q8HR PRN #30 tab 04/24/21 12/29/21 Rx Cinnamon(Dose Unknown) 1 tab PO DAILY 12/29/21 12/29/21 History Allergies Allergy/AdvReac Type Severity Reaction Status Date / Time No Known Allergies Allergy Verified 12/29/21 14:24
[2021-12-31 06:46] LABS: Basophils # (A) 0.1 k/uL (0-0.2); Basophils % (A) 1 %; Eosinophils # (A) 0.2 k/uL (0-0.7); Eosinophils % (A) 2 %; HCT 49.2 % (39.0-53.0); HGB 16.1 gm/dL (13.0-17.5); Lymphocytes # (A) 1.9 k/uL (1.0-4.8); Lymphocytes % (A) 22 %; MCH 32.2 pg (25.0-35.0); MCHC 32.6 g/dL (31.0-37.0); MCV 98.6 fL (80.0-100.0); Mean Platelet Volume 7.8; Monocytes # (A) 0.5 k/uL (0-1.0); Monocytes % (A) 6 %; Neutrophils # (A) 5.7 k/uL (1.3-7.7); Neutrophils % (A) 68 %; Platelet Count 173 k/uL (150-450); RBC 4.99 m/uL (4.30-5.90); RDW 12.5 % (11.5-15.5); WBC 8.3 k/uL (3.8-10.6)
[2021-12-31] MEDS ORDERED: HYDROmorphone 0.5 MG/0.5 ML SYRINGE IVP PRN (07:00)
[2021-12-31] MEDS ORDERED: MIDAZOLAM 2 MG/2 ML VIAL IVP ONE (07:11)
[2021-12-31] MEDS ORDERED: BUPIVACAINE (PF) 0.25% 30 ML VIAL SQ ONE ×2 (07:30→08:10)
[2021-12-31] MEDS ORDERED: ROCURONIUM 10 MG/ML (5 ML VIAL) IV ONE (07:35)
[2021-12-31] MEDS ORDERED: DEXAMETHASONE SOD PHOSPHATE 4 MG/ML 1 ML VIAL ONE (07:35)
[2021-12-31] MEDS ORDERED: SODIUM CHLORIDE 0.9% (PF) 10 ML VIAL ONE (07:35)
[2021-12-31] MEDS ORDERED: NEOSTIGMINE 1 MG/ML 10 ML VIAL ONE (07:35)
[2021-12-31] MEDS ORDERED: LIDOCAINE 2% INJ 20 MG/ML (2 ML VIAL) ONE (07:35)
[2021-12-31] MEDS ORDERED: ROPIVACAINE 5 MG/ML 30 ML VIAL ONE (07:35)
[2021-12-31] MEDS ORDERED: fentaNYL (PF) 50 MCG/ML 2 ML AMP ONE (07:35)
[2021-12-31] MEDS ORDERED: GLYCOPYRROLATE 0.2 MG/ML 2 ML VIAL ONE (07:35)
[2021-12-31] MEDS ORDERED: SUCCINYLCHOLINE CHLORIDE 100 MG/5 ML SYR IV ONE (07:35)
[2021-12-31] MEDS ORDERED: PHENYLEPHRINE-0.9% NACL SYG 1,000 MCG/10 ML SYRINGE ONE (07:35)
[2021-12-31] MEDS ORDERED: PROPOFOL 10 MG/ML 20 ML VIAL IV ONE (07:35)
[2021-12-31] MEDS ORDERED: LACTATED RINGERS 1,000 ML IV ONE (08:25)
[2021-12-31] MEDS ORDERED: METOPROLOL TARTRATE 5 MG/5 ML VIAL IVP ONE (09:09)
[2021-12-31 09:23] VITALS: TEMP 97.6
[2021-12-31 09:37] VITALS: RESP 16
--- NOTE | 2021-12-31 09:45 | P.OP ---
Date of Procedure: 12/31/21 Description of Procedure: PRE-OPERATIVE DIAGNOSES 1. Recurrent right inguinal hernia 2. Left groin pain 3. Hypertensive heart disease 4. Lower obstructive uropathy due to prostate disorder 5. Chronic migraines 6. Hyperlipidemia 7. Chronic obstructive pulmonary disease with bronchitis 8. Past tobacco abuse POST-OPERATIVE DIAGNOSES 1. Recurrent right inguinal hernia, indirect, 2 cm 2. Left groin pain 3. Hypertensive heart disease 4. Lower obstructive uropathy due to prostate disorder 5. Chronic migraines 6. Hyperlipidemia 7. Chronic obstructive pulmonary disease with bronchitis 8. Past tobacco abuse OPERATION: 1. Robotic-assisted da Carlos Xi laparoscopic reduction repair of recurrent right indirect inguinal hernia with mesh, 11.[address] ANESTHESIA: General with local anesthetic ESTIMATED BLOOD LOSS: 5 mL. SPECIMENS: NONE COMPLICATIONS: None. FINDINGS: 1. Recurrent indirect right inguinal hernia 2 cm, Nyhus type 4 2. No recurrent left inguinal hernia INDICATIONS: The patient is a 76-year-old male who presents with recurrent right inguinal hernia. Now he presents for surgical intervention. Laparoscopic versus open and robotic approaches were discussed including bilateral approach. Benefits and risks including bleeding, infection, chronic groin pain, sterility were reviewed. Placement of mesh was also described. Informed consent was obtained. DESCRIPTION: In the preoperative area, an abdominal block was placed per anesthesia. The patient was brought to the operating room and initially laid in supine position. The abdomen had been prepped and draped in standard sterile fashion. Ioban draping was also placed. Prior to incision, a timeout protocol was confirmed with surgical team regarding patient's name including procedures to be performed. Initial positioning for the robotic assisted ports were selected 20 cm superior to the target anatomy. A 0 degree 5 mm laparoscopic trocar entry was performed at the left upper quadrant. The abdomen was insufflated to 15 mmHg which he tolerated well. Diagnostic laparoscopy demonstrated no injury to bowel, viscera or mesentery. Incarcerated sigmoid colon was found along the left groin. Along the right groin, no new hernia. Next, along the epigastrium, 8 mm robot trocar was placed. An 8-mm robotic trocar was placed under direct visualization at the right upper quadrant. An 8 mm port was placed at the left upper quadrant. All trocars were positioned between 10-cm apart from each other. An accessory 12mm disposable laparoscopic trocar was placed along the right lateral abdominal wall for exchange of mesh and needles. The [employer] robot was primed, draped, prepared for docking along upper abdomen of the patient. The patient was positioned 14 steep Trendelenburg position. I then went to the [employer] Xi console. The special ed assistant was at bedside for exchange of the robot arms and equipment. Attention was brought to the right groin. Next, the right groin defect was measured 2 x 2-cm hernia. An indirect hernia was confirmed, Nyhus type IV. The right inguinal hernia was explored without inguinal lipoma. The size of the hernia defect was 2 cm x 2 cm with intraoperative films obtained. Using a 2-0 VLOC, the peritoneal defect of the right inguinal hernia site was closed using a running suture. The defect was found to be completely closed with reduction of the right indirect inguinal hernia was confirmed. As an onlay, 11.[address] mesh was placed after being cut in half. The mesh was tacked to the pelvis using 2-0 VLOC nonabsorbable9-inch length sutures. A final endoscopic imaging was obtained. The robot was undocked from the patient's bedside. I then rescrubbed into the case. Insufflation was released from the abdominal cavity and all instruments were removed from the abdominal cavity. The rest of incisions were reapproximated using 4-0 Monocryl in a running subcuticular fashion. Incisions were cleansed using dilute hydrogen peroxide. Liquid glue was applied to the skin. At the end of the procedure, the needle, sponge and instrument counts had been verified correct by the surgical services coordinator. The patient had tolerated the procedure well and was taken to the postanesthesia care unit in stable condition. Intraoperative images were reviewed with the patient's family who were pleased with the level of care. Plan - Discharge Summary Discharge Rx Participant: No New Discharge Prescriptions: New Simethicone [Gas-X] 125 mg PO AC-TID PRN #20 capsule PRN Reason: Pain Ibuprofen 800 mg PO Q8HR PRN #30 tablet PRN Reason: Pain Acetaminophen Tab [Tylenol Tab] 1,000 mg PO Q6HR PRN #30 tablet PRN Reason: Pain Continue Multivitamins, Thera [Multivitamin (formulary)] 1 tab PO AC-SUPPER L.acidoph,Paracasei, B.lactis [Probiotic] 1 cap PO W/LUNCH Finasteride [Proscar] 5 mg PO HS Atorvastatin Calcium [Lipitor] 80 mg PO HS Propranolol [Inderal] 40 mg PO BID Montelukast [Singulair] 10 mg PO DAILY Zinc Gluconate [Zinc] 50 mg PO DAILY Donepezil [Aricept] 10 mg PO DAILY Cholecalciferol (Vitamin D3) [Vitamin D3 (5000 Iu)] 125 mcg PO DAILY Aspirin 162 mg PO DAILY Vitamin B Complex 1 each PO DAILY Clotrimazole Cream [Lotrimin Cream] 1 applic TOPICAL QAM PRN PRN Reason: Rash Terazosin [Hytrin] 5 mg PO BID Cinnamon(Dose Unknown) 1 tab PO DAILY Discontinued Ibuprofen [Motrin] 600 mg PO Q8HR PRN #30 tab PRN Reason: Pain Discharge Medication List Aspirin 162 mg PO DAILY 11/30/20 [History] Atorvastatin Calcium [Lipitor] 80 mg PO HS 11/30/20 [History] Cholecalciferol (Vitamin D3) [Vitamin D3 (5000 Iu)] 125 mcg PO DAILY 11/30/20 [History] Clotrimazole Cream [Lotrimin Cream] 1 applic TOPICAL QAM PRN 11/30/20 [History] Donepezil [Aricept] 10 mg PO DAILY 11/30/20 [History] Finasteride [Proscar] 5 mg PO HS 11/30/20 [History] L.acidoph,Paracasei, B.lactis [Probiotic] 1 cap PO W/LUNCH 11/30/20 [History] Montelukast [Singulair] 10 mg PO DAILY 11/30/20 [History] Multivitamins, Thera [Multivitamin (formulary)] 1 tab PO AC-SUPPER 11/30/20 [History] Propranolol [Inderal] 40 mg PO BID 11/30/20 [History] Terazosin [Hytrin] 5 mg PO BID 11/30/20 [History] Zinc Gluconate [Zinc] 50 mg PO DAILY 11/30/20 [History] Vitamin B Complex 1 each PO DAILY 04/16/21 [History] Cinnamon(Dose Unknown) 1 tab PO DAILY 12/29/21 [History] Acetaminophen Tab [Tylenol Tab] 1,000 mg PO Q6HR PRN #30 tablet 12/31/21 [Rx] Ibuprofen 800 mg PO Q8HR PRN #30 tablet 12/31/21 [Rx] Simethicone [Gas-X] 125 mg PO AC-TID PRN #20 capsule 12/31/21 [Rx] Follow up Appointment(s)/Referral(s): Florida Langston MD [STAFF PHYSICIAN] - 01/04/22 (Telehealth, DR. LANGSTON WILL CALL YOU ON December) Patient Instructions/Handouts: *[facility] - Managing Your Pain After Surgery Without Opioids, *[facility] - (Anesthesia) Discharge Instructions Outpatient Surgery, Laparoscopic Herniorrhaphy (IP), Inguinal Hernia Repair (DC) Activity/Diet/Wound Care/Special Instructions: No lifting over 10 pounds in 2 weeks until January 14. May shower. No bath tub soaks for two weeks until January 14. Diet as tolerated. Use Tylenol, simethicone and ibuprofen or Aleve scheduled for the next 24-48 hours for best pain relief. Use ice along incisions for today to prevent swelling. Discharge Disposition: HOME SELF-CARE
--- NOTE | 2021-12-31 10:13 | P.ANPRN ---
Procedure Note - Anesthesia - Nerve Block Performed Bilateral Transversus Abdominis Single Time Out Performed: Yes (0710) Date of Procedure: 12/31/21 Procedure Start Time: 07:10 Procedure Stop Time: :20 Location of Patient: PreOp Indication: Acute Post-Operative Pain, Dx/Pain Location (Inguinal pain), Requested by Surgeon Specifically requested for management of pain by DrRenita: Florida Langston Sedation Type: Sedate with meaningful contact maintained Preparation: Sterile Prep Position: Supine Catheter: None Needle Types: Pajunk Needle Gauge: 21 Ultrasound used to visualize needle placement: Yes Ultrasound used to observe medication spread: Yes Injectate: 0.5% Ropivacaine (see comment for volume) (15 cc + 2mg of decadron + 10 cc of Normal saline on each side) Blood Aspirated: No Pain Paresthesia on Injection Noted: No Resistance on Injection: Normal Image Stored and Saved: Yes Events: Uneventful and Well Tolerated
[2021-12-31 10:40] VITALS: BP 138/82; PULSE 67
[2021-12-31] MEDS ORDERED: TAMSULOSIN 0.4 MG CAP.ER.24H PO PRN (11:12)
[2021-12-31 11:29] LABS: ALT 29 U/L (4-49); AST 26 U/L (17-59); African American GFR (CKD) >90 (>60 ml/min/1.73 sqM); Albumin 3.6 g/dL (3.5-5.0); Alkaline Phosphatase 44 U/L (38-126); Anion Gap 8 mmol/L; Blood Urea Nitrogen 22 mg/dL (9-20); Calcium 8.7 mg/dL (8.4-10.2); Carbon Dioxide 26 mmol/L (22-30); Chloride 106 mmol/L (98-107); Glucose 130 mg/dL (74-99); Non-African American GFR(CKD) 81 (>60 ml/min/1.73 sqM); Potassium 4.7 mmol/L (3.5-5.1); Sodium 140 mmol/L (137-145); Total Bilirubin 1.1 mg/dL (0.2-1.3); Total Protein 6.3 g/dL (6.3-8.2)
== END 2021-12-31 11:27 | disposition home or self-care (01) ==
LOC: OR 05:51
PROVIDERS: ATTEND Surgery Plastic and Reconstructive Surgery
DX: K40.91 Unilateral inguinal hernia, without obstruction or gangrene, recurrent (principal); K21.9 Gastro-esophageal reflux disease without esophagitis; I11.9 Hypertensive heart disease without heart failure; N13.9 Obstructive and reflux uropathy, unspecified; N42.9 Disorder of prostate, unspecified; G43.909 Migraine, unspecified, not intractable, without status migrainosus; E78.5 Hyperlipidemia, unspecified; J44.9 Chronic obstructive pulmonary disease, unspecified; I77.6 Arteritis, unspecified; Z87.891 Personal history of nicotine dependence; M19.90 Unspecified osteoarthritis, unspecified site; R01.1 Cardiac murmur, unspecified; J42 Unspecified chronic bronchitis; Z87.19 Personal history of other diseases of the digestive system; Z90.49 Acquired absence of other specified parts of digestive tract; Z98.42 Cataract extraction status, left eye; Z98.41 Cataract extraction status, right eye; Z98.890 Other specified postprocedural states; Z80.9 Family history of malignant neoplasm, unspecified; Z79.82 Long term (current) use of aspirin; Z79.899 Other long term (current) drug therapy
CPT/HCPCS: 49651; 64488; 80053; 85025; C1781; J2250; J1100; J2710; J0690; J2405; J3010; J2795; J2370; J0330; J2704; J1644; J2001

== ENCOUNTER → 2022-07-07 | Outpatient (CLI) | payer MEDICARE ==
[2022-07-07 16:51] LABS: African American GFR (CKD) >90 (>60 ml/min/1.73 sqM); Blood Urea Nitrogen 26 mg/dL (9-20); Non-African American GFR(CKD) 84 (>60 ml/min/1.73 sqM)
--- NOTE | 2022-07-07 17:14 | CT ---
EXAMINATION TYPE: CT sinus w con DATE OF EXAM: 07/07/2022 COMPARISON: Prior sinus CT July 13, 2016 HISTORY: chronic sinusitis CT DLP: 685.40 mGycm Automated exposure control for dose reduction was used. CONTRAST: CT scan of the facial bones is performed with IV Contrast, patient injected with 90 mL of Isovue 300. TECHNIQUE: CT scan of the sinuses is performed without contrast, axial images are obtained, coronal r eformatted images are also reviewed. FINDINGS: The paranasal sinuses including the frontal, ethmoid, sphenoid, and maxillary sinuses bila terally are well-aerated without abnormal opacification or suspicious air-fluid levels. The ostiomea carey complex is patent bilaterally on coronal image 20. Visualized portion of mastoid air cells show no abnormal opacification. The globes are intact bilate rally. Visualized brain parenchyma shows mild diffuse age-related cerebral and feeding chronic small vessel ischemic changes. No suspicious enhancement. IMPRESSION: The paranasal sinuses are clear and the ostiomeatal complex remains patent bilaterally.
== END | disposition home or self-care (01) ==
LOC: RADCTMAIN 16:02
PROVIDERS: ATTEND Family Medicine
DX: J32.9 Chronic sinusitis, unspecified (principal)
CPT/HCPCS: 82565; 84520; 36415; 70487; Q9967

== ENCOUNTER 2024-08-07 09:38 | Day surgery (SDC) | payer MEDICARE ==
[2024-08-06 11:47] VITALS: BMI 30.8
--- NOTE | 2024-08-07 09:09 | P.GSHP ---
History of Present Illness H&P Date: 08/07/24 CHIEF COMPLAINT: Colon screen HISTORY OF PRESENT ILLNESS: The patient is a 79-year-old male who presents for colon screen. Lower endoscopy was offered for further evaluation and management. PAST MEDICAL HISTORY: Please see list. PAST SURGICAL HISTORY: Please see list. MEDICATIONS: Please see list. ALLERGIES: Please see list. SOCIAL HISTORY: No illicit drug use FAMILY HISTORY: No reports of Crohn disease or ulcerative colitis. REVIEW OF ORGAN SYSTEMS: CONSTITUTIONAL: No reports of fevers or chills. PHYSICAL EXAM: VITAL SIGNS: Stable GENERAL: Well-developed pleasant in no acute distress. HEENT: No scleral icterus. Extraocular movements grossly intact. Moist buccal mucosa. NECK: Supple without lymphadenopathy. CHEST: Unlabored respirations. Equal bilateral excursions. CARDIOVASCULAR: Regular rate and rhythm. Distal 2+ pulses. ABDOMEN: Soft, nontender, nondistended. MUSCULOSKELETAL: No clubbing, cyanosis, or edema. ASSESSMENT: 1. Colon screen. PLAN: 1. Recommend proceeding with a lower endoscopy Past Medical History Past Medical History: COPD, Diabetes Mellitus, GERD/Reflux, Hearing Disorder / Deafness, Hyperlipidemia, Osteoarthritis (OA), Prostate Disorder Additional Past Medical History / Comment(s): migraines, heart murmer, chronic bronchitis, diverticulitis, "pre diabetic years ago-lost 60lbs now is good." History of Any Multi-Drug Resistant Organisms: None Reported Past Surgical History: Cholecystectomy, Hernia Repair, Orthopedic Surgery Additional Past Surgical History / Comment(s): hernia x 4, left knee arthroscopy, , rt knee arthroscopy x 3, left thumb tendon surgery, rt arm and hand surgery to relieve nerve tension, left hip surgery x 3(reatachment of muscle and bursitis), haily cataracts,"nasal endoscopy", "haily brow lift". Rt shoulder surgery-reduced tendon and 2 bones spurs, damaged rotor cuff repair- Apr 2024. Bowel resection r/t diverticulitis. "Pocket reduction in gums." Past Anesthesia/Blood Transfusion Reactions: No Reported Reaction Additional Past Anesthesia/Blood Transfusion Reaction / Comment(s): "No problems with anethesia if they don't take me too deep" "With nasal endoscopy surgery they took me too deep,my vision was affected and basically didn't have clear vision for sometime.""It took awhile before I could urinate." no hx of blood transfusion to date. Smoking Status: Former smoker - Past Family History Mother Family Medical History: Cancer Additional Family Medical History / Comment(s): Breast cancer Medications and Allergies Home Medications Medication Instructions Recorded Confirmed Type Aspirin 162 mg PO DAILY 11/30/20 08/06/24 History Atorvastatin Calcium [Lipitor] 80 mg PO HS 11/30/20 08/06/24 History Cholecalciferol (Vitamin D3) 125 mcg PO DAILY 11/30/20 08/06/24 History [Vitamin D3 (5000 Iu)] Clotrimazole Cream [Lotrimin Cream] 1 applic TOPICAL QAM PRN 11/30/20 08/06/24 History Donepezil [Aricept] 10 mg PO QAM 11/30/20 08/06/24 History Finasteride [Proscar] 5 mg PO HS 11/30/20 08/06/24 History L.acidoph,Paracasei, B.lactis 1 cap PO W/LUNCH 11/30/20 08/06/24 History [Probiotic] Montelukast [Singulair] 10 mg PO QAM 11/30/20 08/06/24 History Multivitamins, Thera [Multivitamin 1 tab PO AC-SUPPER 11/30/20 08/06/24 History (formulary)] Propranolol [Inderal] 40 mg PO BID 11/30/20 08/06/24 History Terazosin [Hytrin] 5 mg PO BID 11/30/20 08/06/24 History Zinc Gluconate [Zinc] 50 mg PO DAILY 11/30/20 08/06/24 History Cinnamon(Dose Unknown) 1 tab PO QAM 12/29/21 08/06/24 History Acetaminophen Tab [Tylenol Tab] 1,000 mg PO Q6HR PRN #30 tablet 12/31/21 08/06/24 Rx Allergies Allergy/AdvReac Type Severity Reaction Status Date / Time No Known Allergies Allergy Verified 08/06/24 11:22
[2024-08-07] MEDS: IV FLUID CONTINUATION 1,000 ML IV ONE ×2 (10:02→10:45)
[2024-08-07 10:05] VITALS: TEMP 97
[2024-08-07] MEDS: LACTATED RINGERS 1,000 ML IV SCH (10:13)
[2024-08-07] MEDS ORDERED: PROPOFOL 10 MG/ML 20 ML VIAL IV ONE (10:48)
[2024-08-07 11:11] VITALS: RESP 16
[2024-08-07 11:24] VITALS: BP 143/79; PULSE 81
--- NOTE | 2024-08-07 11:27 | P.PN ---
Progress Note - Text Progress Note Date: 08/07/24 Patient reports persistent groin pain from prior hernias. No recent cardiac assessment. Patient has pre-existing history of hypertensive heart disease and intermittent atypical chest pain. Will obtain twelve-lead EKG prior to discharge
--- NOTE | 2024-08-07 12:04 | P.PCN ---
Date of Procedure: 08/07/24 Description of Procedure: PREOPERATIVE DIAGNOSIS: Personal history of colon polyp Colonoscopy screening. History of sigmoid colectomy POSTOPERATIVE DIAGNOSIS: Colonoscopy screening. Diverticulosis, scattered. OPERATION: Colonoscopy to the cecum, ileocecal valve and appendiceal orifice. SURGEON: Florida Langston MD. ANESTHESIA: MAC. INDICATIONS: The patient is a 59-year-old female who presents for colonoscopy screening. Benefits and risks were described and informed consent was obtained. DESCRIPTION OF PROCEDURE: The patient had undergone Sutab prep. The patient had been brought into the operating room and laid in the left lateral decubitus position. After adequate intravenous sedation, the rectum was examined with 2% lidocaine jelly. No external hemorrhoids were encountered. The rectal tone was within normal limits. No lesions were palpated in the rectal vault. An Olympus colonoscope was advanced until the cecum, ileocecal valve and appendiceal orifice were clearly viewed. The prep was fair. Scattered diverticulosis was encountered. No colonic polyps were found. No evidence of focal colitis was found. Retroflexion of the scope demonstrated grade 1 internal hemorrhoids without active bleeding or inflammation. The colon was desufflated. The patient had tolerated the procedure well. Withdrawal time was over 6 minutes. FINDINGS: Aronchick preparation quality scale 3 (1-5) Internal hemorrhoids, grade 2 No external prolapsed hemorrhoids. No arteriovenous malformations. No adenomatous polyps. No focal colitis. Moderate diverticulosis Anastomosis within normal limits RECOMMENDATIONS: Lower endoscopy in 5 years, 2028 Plan - Discharge Summary Discharge Rx Participant: No New Discharge Prescriptions: Continue Multivitamins, Thera [Multivitamin (formulary)] 1 tab PO AC-SUPPER L.acidoph,Paracasei, B.lactis [Probiotic] 1 cap PO W/LUNCH Finasteride [Proscar] 5 mg PO HS Atorvastatin Calcium [Lipitor] 80 mg PO HS Propranolol [Inderal] 40 mg PO BID Montelukast [Singulair] 10 mg PO QAM Zinc Gluconate [Zinc] 50 mg PO DAILY Donepezil [Aricept] 10 mg PO QAM Cholecalciferol (Vitamin D3) [Vitamin D3 (5000 Iu)] 125 mcg PO DAILY Aspirin 162 mg PO DAILY Clotrimazole Cream [Lotrimin Cream] 1 applic TOPICAL QAM PRN PRN Reason: Rash Terazosin [Hytrin] 5 mg PO BID Cinnamon(Dose Unknown) 1 tab PO QAM Acetaminophen Tab [Tylenol] 1,000 mg PO Q6HR PRN #30 tablet PRN Reason: Pain Discharge Medication List Aspirin 162 mg PO DAILY 11/30/20 [History] Atorvastatin Calcium [Lipitor] 80 mg PO HS 11/30/20 [History] Cholecalciferol (Vitamin D3) [Vitamin D3 (5000 Iu)] 125 mcg PO DAILY 11/30/20 [History] Clotrimazole Cream [Lotrimin Cream] 1 applic TOPICAL QAM PRN 11/30/20 [History] Donepezil [Aricept] 10 mg PO QAM 11/30/20 [History] Finasteride [Proscar] 5 mg PO HS 11/30/20 [History] L.acidoph,Paracasei, B.lactis [Probiotic] 1 cap PO W/LUNCH 11/30/20 [History] Montelukast [Singulair] 10 mg PO QAM 11/30/20 [History] Multivitamins, Thera [Multivitamin (formulary)] 1 tab PO AC-SUPPER 11/30/20 [History] Propranolol [Inderal] 40 mg PO BID 11/30/20 [History] Terazosin [Hytrin] 5 mg PO BID 11/30/20 [History] Zinc Gluconate [Zinc] 50 mg PO DAILY 11/30/20 [History] Cinnamon(Dose Unknown) 1 tab PO QAM 12/29/21 [History] Acetaminophen Tab [Tylenol] 1,000 mg PO Q6HR PRN #30 tablet 12/31/21 [Rx] Follow up Appointment(s)/Referral(s): Florida Langston MD [STAFF PHYSICIAN] - 09/17/24 11:00 am Patient Instructions/Handouts: *[facility] - (Anesthesia) Discharge Instructions Outpatient Surgery, Diverticulosis (DC), Diverticulosis Diet (GEN) Activity/Diet/Wound Care/Special Instructions: Repeat colonoscopy 5 years, 2028 Discharge Disposition: HOME SELF-CARE
== END 2024-08-07 12:01 | disposition home or self-care (01) ==
LOC: ORWHC2ENDO 09:38
PROVIDERS: ATTEND Surgery Plastic and Reconstructive Surgery
DX: Z12.11 Encounter for screening for malignant neoplasm of colon (principal); K57.30 Diverticulosis of large intestine without perforation or abscess without bleeding; K64.1 Second degree hemorrhoids; J44.9 Chronic obstructive pulmonary disease, unspecified; E11.36 Type 2 diabetes mellitus with diabetic cataract; K21.9 Gastro-esophageal reflux disease without esophagitis; G43.909 Migraine, unspecified, not intractable, without status migrainosus; M19.90 Unspecified osteoarthritis, unspecified site; E78.5 Hyperlipidemia, unspecified; Z86.0100 Personal history of colon polyps, unspecified; Z90.49 Acquired absence of other specified parts of digestive tract; Z98.890 Other specified postprocedural states; Z87.891 Personal history of nicotine dependence; Z80.3 Family history of malignant neoplasm of breast; Z79.02 Long term (current) use of antithrombotics/antiplatelets; Z79.82 Long term (current) use of aspirin; Z79.899 Other long term (current) drug therapy
CPT/HCPCS: J2704; G0121